=== PATIENT | female | born 1940 | race Caucasian/White ===

== ENCOUNTER → 2020-12-18 09:37 | Outpatient (BNVA) | payer MEDICARE, MEDICAID, SELFPAY | PROVIDERS: PCP Internal Medicine; Visit Provider Internal Medicine | DX: I42.8 Other cardiomyopathies (principal); I48.0 Paroxysmal atrial fibrillation; I10 Essential (primary) hypertension; Q21.1 Atrial septal defect | CPT/HCPCS: Q3014 ==

== ENCOUNTER 2021-10-31 21:25 | Inpatient (IN) | payer MEDICARE, MEDICAID, SELFPAY ==
--- NOTE | ~2021-10-31 | XR_ITS ---
EXAMINATION: XR CHEST CLINICAL INFORMATION: Shortness of breath COMPARISON: 07/02/2019 TECHNIQUE: Frontal view of the chest was obtained. FINDINGS: Cardiac leads overlie the chest. The lungs are well expanded. Hazy opacity at the left base. No pleural effusion or pneumothorax. The cardiomediastinal silhouette is unchanged, with a calcified aorta. XR/XR chest 1V IMPRESSION: Hazy left lung basilar opacity could be infectious or inflammatory. Atelectasis possible.
--- NOTE | ~2021-10-31 | NM_ITS ---
EXAMINATION: PULMONARY PERFUSION STUDY CLINICAL INFORMATION: Shortness of breath, tachycardia, elevated d-dimer. COMPARISON: No previous lung scan is available for comparison. A radiograph the chest dated 10/31/2021 is available for comparison. TECHNIQUE: Following the intravenous injection of 3.6 mCi Tc-99m MAA, an 8-view perfusion study was performed using a gamma scintillation camera. FINDINGS: No segmental perfusion defects are present. There is mildly heterogeneous distribution of activity bilaterally. There are no focal anatomic appearing perfusion defects present. NM/NM pul perfusion IMPRESSION: Very low probability of pulmonary embolism.
--- NOTE | 2021-10-31 22:04 | ECG_ITS ---
Test Reason : WEAKNESS Blood Pressure : / mmHG Vent. Rate : 127 BPM Atrial Rate : 127 BPM P-R Int : 166 ms QRS Dur : 076 ms QT Int : 320 ms P-R-T Axes : 094 105 014 degrees QTc Int : 465 ms Suspect limb lead reversal, interpretation assumes no reversal Sinus tachycardia Rightward axis Septal infarct (cited on or before 02-JUL-2019) Abnormal ECG When compared with ECG of 02-JUL-2019 14:06, Vent. rate has increased BY 47 BPM Referred By: Larry Guerra Electronically Signed By:ANDERSON DE LEON
--- NOTE | 2021-10-31 22:45 | ED_ITS ---
HPI - SOB/Dyspnea General Chief Complaint: Weakness Stated Complaint: diff breathing Time Seen by Provider: 10/31/21 22:04 History of Present Illness HPI Narrative: patient 81 years old with history of nonischemic cardiomyopathy paroxysmal AFib , on Xarelto, ejection fraction 50-55% , patent Nguyễn ovale avale brought by EMS for increased shortness of breath and not feeling well for last 4 - 5 days patient has not received COVID vaccine, per EMS patient was very short of breath in unkept condition confused and weak responded to nebulizing treatment and oxygen at this time patient feeling much better denies any chest pain no fever just feeling weak for last few days Related Data Home Medications Medication Instructions Recorded Confirmed blood sugar diagnostic (OneTouch #10 ea 04/17/21 Verio test strips) Previous Rx's Medication Instructions Recorded atorvastatin 20 mg tablet 20 mg PO DAILY #90 tab 09/02/20 gabapentin 600 mg tablet 1,200 mg PO BID #360 tab 10/23/20 ketoconazole 2 % topical cream 1 appl TOPICAL BID #60 g 12/26/20 Sanitary WIPES #100 ea 03/18/21 carvedilol 12.5 mg tablet 12.5 mg PO BID 90 Days #180 tab 05/12/21 lisinopril 5 mg tablet 5 mg PO DAILY #90 tab 05/12/21 sitagliptin 100 mg tablet (Januvia) 100 mg PO DAILY 90 Days #90 tab 05/15/21 budesonide-formoterol HFA 160 2 puff INHALATION BID #3 ea 07/27/21 mcg-4.5 mcg/actuation aerosol inhaler (Symbicort) ipratropium 20 mcg-albuterol 100 1 puff PO QID #12 ml 07/28/21 mcg/actuation mist for inhalation (Combivent Respimat) metformin 500 mg tablet 500 mg PO BID 90 Days #180 tab 07/28/21 rivaroxaban 20 mg tablet (Xarelto) 20 mg PO DAILY 90 Days #90 tab 08/21/21 Allergies Allergy/AdvReac Type Severity Reaction Status Date / Time Iodinated Contrast Media Allergy Severe ANAPHYLAXIS Verified 12/18/20 09:40 [IV Dye, Iodine Containing] shellfish derived Allergy Severe TREMORS, Verified 12/18/20 09:40 [SHELLFISH DERIVED] HALLUCINATIONS fluticasone [Advair Diskus] Allergy Unknown unk Verified 12/18/20 09:40 salmeterol [Advair Diskus] Allergy Unknown unk Verified 12/18/20 09:40 loratadine [From Claritin] AdvReac Mild NAUSEA & Verified 12/18/20 09:40 VOMITING Sea food Allergy Unknown itching Uncoded 12/18/20 09:40 Review of Systems Review of Systems: Yes all other systems are reviewed and are negative [facility] Past Medical History Medical History Cardiomyopathy COPD (chronic obstructive pulmonary disease) Coronary artery disease Diabetic nephropathy Diabetic neuropathy Essential hypertension Hypercholesterolemia Nonischemic cardiomyopathy Paroxysmal atrial fibrillation PFO (patent foramen ovale) Sarcoidosis Spinal stenosis of lumbar region Ventricular tachycardia Vitamin D deficiency Surgical History History of bladder surgery History of cardiac catheterization (~04/2016) History of cardioversion (~12/2016) History of hysterectomy Family History Family History Father CVD (cardiovascular disease) Mother Diabetes Social History Social History Advance Directives: No Advance Directives Information Provided: Yes Physical Exam Vital Signs: Vital Signs: Last Vital Signs Temp 98.2 F 11/01/21 02:34 Pulse 122 H 11/01/21 02:34 Resp 16 11/01/21 02:34 BP 146/83 H 11/01/21 02:34 Pulse Ox 98 11/01/21 02:34 Oxygen Flow Rate 3 10/31/21 22:53 BMI result Body Mass Index 21.0 Appearance: Alert. Oriented X3. No acute distress. Eyes: no pallor or icterus ENT: Pharynx normal. Oral Mucosa moist Neck: Normal inspection. Neck supple. CVS: sinus tachycardia no murmur or gallop. Pulses normal. Respiratory: No respiratory distress. Equal air entry bilateral, no wheezi ng/rales/rhonchi Abdomen: Soft and nontender. Bowel sounds are present, no mass palpable, no CVA tenderness Skin: Skin warm and dry. Normal skin color. Normal skin turgor. Extremities: No lower extremity edema. No calf tenderness Neuro: Oriented X 3. no focal deficit MDM - SOB/Dyspnea MDM Narrative Medical decision making narrative: patient with increase weakness with history of AFib on Xarelto workup showed UTI will admit patient for IV hydration and antibiotics, chest x-ray showed left lung basilar opacity possible infiltrates but patient denied any cough COVID-19 is negative Medical Records Attestation: I reviewed the patient's medical records. Lab Data Attestation: I reviewed the patient's lab results. Result diagrams: 11/01/21 00:00 10/31/21 23:59 Labs: Lab Results 10/31/21 10/31/21 10/31/21 Range/Units 23:59 23:59 23:59 WBC (4.8-10.8) X10*3/uL RBC (4.20-5.50) X10*6/uL Hgb (12.0-16.0) g/dl Hct (37.0-47.0) % MCV (80.0-98.0) fL MCH (27.0-33.0) pg MCHC (31.0-35.0) g/dl RDW (11.0-16.0) % Plt Count (160-400) X10*3/uL MPV (9.4-12.3) fL Immature Gran % (Auto) (0.0-0.4) % Neut % (Auto) (45-73) % Lymph % (Auto) (20-40) % [place] % (Auto) (2-11) % Eos % (Auto) (0-4) % Baso % (Auto) (0-2) % Lymph # (Auto) (1.2-4.9) X10*3/uL [place] # (Auto) (0.1-1.2) X10*3/uL Eos # (Auto) (0.0-0.4) X10*3/uL Baso # (Auto) (0.0-0.2) X10*3/uL Abs Immat Gran (auto) (0.00-0.03) X10*3/uL Absolute Neuts (auto) (2.0-8.3) x10*3/uL Absolute Nucleated RBC (0.0-0.012) X10*3/uL Nucleated RBC % (auto) (0.0-0.2) /100WBC PT (9.9-13.0) SEC INR (0.9-1.1) Sodium 131 L (135-145) mmol/L Potassium 5.3 H (3.3-5.1) mmol/L Chloride 95 L (96-108) mmol/L Carbon Dioxide 20 L (22-29) mmol/L Anion Gap 21 H (12-20) BUN 28 H (9-16) mg/dL Creatinine 0.92 (0.5-1.4) mg/dL Estim Creat Clear Calc 39.6 Estimated GFR 59 Random Glucose 114 (60-115) mg/dL Lactic Acid (0.5-2.0) mmol/L Calcium 9.1 (8.4-10.2) mg/dL Total Bilirubin 0.8 (0.0-1.0) mg/dL AST 17 (5-31) U/L ALT 14 (0-31) U/L Alkaline Phosphatase 75 (39-117) U/L Troponin I High Sens 22.4 H (<3.5-17.0) ng/L B-Natriuretic Peptide 21 (<100) pg/mL Total Protein 6.0 L (6.5-8.0) g/dL Albumin 3.6 (3.5-5.0) g/dL COVID-19 (SOTO) (Negative) COVID-19 Clin Com 11/01/21 11/01/21 11/01/21 Range/Units 00:00 00:00 00:39 WBC 13.9 H (4.8-10.8) X10*3/uL RBC 4.59 (4.20-5.50) X10*6/uL Hgb 14.6 (12.0-16.0) g/dl Hct 43.3 (37.0-47.0) % MCV 94.3 (80.0-98.0) fL MCH 31.8 (27.0-33.0) pg MCHC 33.7 (31.0-35.0) g/dl RDW 13.1 (11.0-16.0) % Plt Count 280 (160-400) X10*3/uL MPV 9.7 (9.4-12.3) fL Immature Gran % (Auto) 0.4 (0.0-0.4) % Neut % (Auto) 83.7 H (45-73) % Lymph % (Auto) 8.5 L (20-40) % [place] % (Auto) 6.5 (2-11) % Eos % (Auto) 0.6 (0-4) % Baso % (Auto) 0.3 (0-2) % Lymph # (Auto) 1.2 (1.2-4.9) X10*3/uL [place] # (Auto) 0.9 (0.1-1.2) X10*3/uL Eos # (Auto) 0.1 (0.0-0.4) X10*3/uL Baso # (Auto) 0.0 (0.0-0.2) X10*3/uL Abs Immat Gran (auto) 0.05 H (0.00-0.03) X10*3/uL Absolute Neuts (auto) 11.7 H (2.0-8.3) x10*3/uL Absolute Nucleated RBC 0.000 (0.0-0.012) X10*3/uL Nucleated RBC % (auto) 0.0 (0.0-0.2) /100WBC PT 12.3 (9.9-13.0) SEC INR 1.1 (0.9-1.1) Sodium (135-145) mmol/L Potassium (3.3-5.1) mmol/L Chloride (96-108) mmol/L Carbon Dioxide (22-29) mmol/L Anion Gap (12-20) BUN (9-16) mg/dL Creatinine (0.5-1.4) mg/dL Estim Creat Clear Calc Estimated GFR Random Glucose (60-115) mg/dL Lactic Acid (0.5-2.0) mmol/L Calcium (8.4-10.2) mg/dL Total Bilirubin (0.0-1.0) mg/dL AST (5-31) U/L ALT (0-31) U/L Alkaline Phosphatase (39-117) U/L Troponin I High Sens (<3.5-17.0) ng/L B-Natriuretic Peptide (<100) pg/mL Total Protein (6.5-8.0) g/dL Albumin (3.5-5.0) g/dL COVID-19 (SOTO) Negative (Negative) COVID-19 Clin Com See Note 11/01/21 Range/Units 02:26 WBC (4.8-10.8) X10*3/uL RBC (4.20-5.50) X10*6/uL Hgb (12.0-16.0) g/dl Hct (37.0-47.0) % MCV (80.0-98.0) fL MCH (27.0-33.0) pg MCHC (31.0-35.0) g/dl RDW (11.0-16.0) % Plt Count (160-400) X10*3/uL MPV (9.4-12.3) fL Immature Gran % (Auto) (0.0-0.4) % Neut % (Auto) (45-73) % Lymph % (Auto) (20-40) % [place] % (Auto) (2-11) % Eos % (Auto) (0-4) % Baso % (Auto) (0-2) % Lymph # (Auto) (1.2-4.9) X10*3/uL [place] # (Auto) (0.1-1.2) X10*3/uL Eos # (Auto) (0.0-0.4) X10*3/uL Baso # (Auto) (0.0-0.2) X10*3/uL Abs Immat Gran (auto) (0.00-0.03) X10*3/uL Absolute Neuts (auto) (2.0-8.3) x10*3/uL Absolute Nucleated RBC (0.0-0.012) X10*3/uL Nucleated RBC % (auto) (0.0-0.2) /100WBC PT (9.9-13.0) SEC INR (0.9-1.1) Sodium (135-145) mmol/L Potassium (3.3-5.1) mmol/L Chloride (96-108) mmol/L Carbon Dioxide (22-29) mmol/L Anion Gap (12-20) BUN (9-16) mg/dL Creatinine (0.5-1.4) mg/dL Estim Creat Clear Calc Estimated GFR Random Glucose (60-115) mg/dL Lactic Acid 1.2 (0.5-2.0) mmol/L Calcium (8.4-10.2) mg/dL Total Bilirubin (0.0-1.0) mg/dL AST (5-31) U/L ALT (0-31) U/L Alkaline Phosphatase (39-117) U/L Troponin I High Sens (<3.5-17.0) ng/L B-Natriuretic Peptide (<100) pg/mL Total Protein (6.5-8.0) g/dL Albumin (3.5-5.0) g/dL COVID-19 (SOTO) (Negative) COVID-19 Clin Com ECG Data Attestation: I personally reviewed and interpreted this ECG as follows: Interpretation: Sinus tachycardia with heart rate 127 beats per minute right axis deviation no acute STT wave changes no acute ischemia Discharge Plan Discharge Clinical Impression: Weakness UTI (urinary tract infection) Qualifiers: Urinary tract infection type: acute cystitis Hematuria presence: without hematuria Qualified Code(s): N30.00 - Acute cystitis without hematuria Atrial fibrillation Qualifiers: Atrial fibrillation type: longstanding persistent Qualified Code(s): I48.11 - Longstanding persistent atrial fibrillation Patient Disposition: Admitted As Inpatient
[2021-10-31 22:53] VITALS: BP 115/74; PULSE 111; RESP 16; TEMP 36.6; O2SAT 95; BMI 21.0
[2021-10-31 23:00] VITALS: PULSE 110; RESP 16; O2SAT 95
[2021-11-01] VITALS (12 sets, daily range): BP systolic 89–146; BP diastolic 51–86; PULSE 102–122; RESP 15–20; TEMP 36–36.8; O2SAT 2–98
[2021-11-01 00:05] LABS: MANUAL DIFF FLAG NO
[2021-11-01 00:06] LABS: Basophils Percent Auto 0.3 % (0-2); Eosinophils Absolute Auto 0.1 X10*3/uL (0.0-0.4); Eosinophils Percent Auto 0.6 % (0-4); Hematocrit 43.3 % (37.0-47.0); Hemoglobin 14.6 g/dl (12.0-16.0); Imm Gran Abs Auto 0.05 X10*3/uL (0.00-0.03); Imm Gran Pct Auto 0.4 % (0.0-0.4); Lymphocytes Absolute Auto 1.2 X10*3/uL (1.2-4.9); Lymphocytes Percent Auto 8.5 % (20-40); Mean Corpuscular HGB Conc 33.7 g/dl (31.0-35.0); Mean Corpuscular Hemoglobin 31.8 pg (27.0-33.0); Mean Corpuscular Volume 94.3 fL (80.0-98.0); Mean Platelet Volume 9.7 fL (9.4-12.3); Monocytes Absolute Auto 0.9 X10*3/uL (0.1-1.2); Monocytes Percent Auto 6.5 % (2-11); Neutrophils Absolute Auto 11.7 x10*3/uL (2.0-8.3); Neutrophils Percent Auto 83.7 % (45-73); Platelet Count 280 X10*3/uL (160-400); Red Blood Count 4.59 X10*6/uL (4.20-5.50); Red Cell Distribution Width 13.1 % (11.0-16.0); White Blood Count 13.9 X10*3/uL (4.8-10.8)
[2021-11-01 00:11] LABS: INTERNATIONAL NORM RATIO 1.1 (0.9-1.1); Prothrombin Time 12.3 SEC (9.9-13.0)
[2021-11-01 00:25] LABS: Alanine Aminotransferase 14 U/L (0-31); Albumin Level 3.6 g/dL (3.5-5.0); Alkaline Phosphatase 75 U/L (39-117); Anion Gap 21 (12-20); Aspartate Amino Transferase 17 U/L (5-31); Bilirubin Total 0.8 mg/dL (0.0-1.0); Blood Urea Nitrogen 28 mg/dL (9-16); Calcium 9.1 mg/dL (8.4-10.2); Carbon Dioxide 20 mmol/L (22-29); Chloride 95 mmol/L (96-108); Creatinine Clr Calc Pharmacy 39.6; Estimated Glomerular Filt Rate 59; Glucose Random 114 mg/dL (60-115); Potassium 5.3 mmol/L (3.3-5.1); Sodium 131 mmol/L (135-145)
[2021-11-01 00:27] LABS: B Type Natriuretic Peptide 21 pg/mL (<100); Troponin-I High Sensitivity 22.4 ng/L (<3.5-17.0)
[2021-11-01] MEDS: 0.9 % Sodium Chloride 1,000 ML 999 ML IVCONT (00:38)
[2021-11-01 01:02] LABS: COVID-19 Test Negative (Negative); IDNOW Serial# 9DD0AD1C
[2021-11-01] MEDS: cefTRIAXone sodium 1 GM in 0.9 % Sodium Chloride 50 ML IV ×2 (01:47→23:32)
[2021-11-01] MEDS: Azithromycin 500 MG in 0.9 % Sodium Chloride 250 ML 125 MG IV ×2 (02:33→20:58)
[2021-11-01 02:50] LABS: Lactic Acid 1.2 mmol/L (0.5-2.0)
--- NOTE | 2021-11-01 03:01 | PM.IMHP ---
History of Present Illness Date of Service: 11/01/21 Chief Complaint: Generalized weakness 81-year-old female with a past medical history of hypertension, hyperlipidemia, diabetes, CAD, CHF with EF of 55%, paroxysmal AFib on Xarelto, COPD, PFO, sarcoidosis, history of ventricular tachycardia, vitamin-D deficiency presented to the hospital today with a chief complaint of generalized weakness. Patient reports that over the past 5 days she has been having generalized weakness which is been worsened over the past 3 days; also has reduced appetite and decreased oral intake for the past 4 5 days. Denies any falls or trauma. Patient reports that at baseline she is mostly in the college and does not move much around the house. Lives with the family and family helps with her daily activities. Mentions that she wears diapers Denies any chest pain or palpitations. Denies any cough or sputum production. Review of all other systems is negative except mentioned above ER course: Per ER team EMS noted the patient was saturating 89%; given nebulizer treatment; placed on oxygen; unable to the ER patient was breathing comfortably, speaking in full sentences; noted to be mildly tachycardic; on labs noted to have mild hyperkalemia 5.3; EKG showed no acute findings; troponin 22 repeat troponin pending; urinalysis was abnormal consistent with UTI-likely contributing to her generalized weakness. Admitted for further management. Chest x-ray also showed hazy opacity. Patient received ceftriaxone and azithromycin the ER. [facility] Medical History Cardiomyopathy COPD (chronic obstructive pulmonary disease) Coronary artery disease Diabetic nephropathy Diabetic neuropathy Essential hypertension Hypercholesterolemia Nonischemic cardiomyopathy Paroxysmal atrial fibrillation PFO (patent foramen ovale) Sarcoidosis Spinal stenosis of lumbar region Ventricular tachycardia Vitamin D deficiency Family History Father CVD (cardiovascular disease) Mother Diabetes Pertinent family history: As mentioned above Surgical History History of bladder surgery History of cardiac catheterization (~04/2016) History of cardioversion (~12/2016) History of hysterectomy Social History Advance Directives: No Advance Directives Information Provided: Yes Meds Allergies Allergy/AdvReac Type Severity Reaction Status Date / Time Iodinated Contrast Media Allergy Severe ANAPHYLAXIS Verified 12/18/20 09:40 [IV Dye, Iodine Containing] shellfish derived Allergy Severe TREMORS, Verified 12/18/20 09:40 [SHELLFISH DERIVED] HALLUCINATIONS fluticasone [Advair Diskus] Allergy Unknown unk Verified 12/18/20 09:40 salmeterol [Advair Diskus] Allergy Unknown unk Verified 12/18/20 09:40 loratadine [From Claritin] AdvReac Mild NAUSEA & Verified 12/18/20 09:40 VOMITING Sea food Allergy Unknown itching Uncoded 12/18/20 09:40 Active Medications: Current Medications Acetaminophen (Acetaminophen 325 Mg Tablet) 650 mg PO Q6H PRN PRN Reason: Pain, Mild (Pain Scale 1-3) Albuterol/Ipratropium (Albuterol/Iprat 2.5/0.5mg 3 Ml Ampul.Neb) 3 ml INHALE RQ4H PRN PRN Reason: Shortness of Breath/Wheezing Dextrose (Dextrose 50 % 25 Gm/50 Ml Vial) 25 gm IVPUSH Q15M PRN; Protocol PRN Reason: per Hypoglycemia Standing Ord. Glucose (Glucose Gel 15 Gm Gel..Gram.) 15 gm PO Q15M PRN; Protocol PRN Reason: per Hypoglycemia Standing Ord. Azithromycin 500 mg/ Sodium (Chloride) 250 mls @ 125 mls/hr IV ONCE ONE Stop: 11/01/21 03:30 Last Admin: 11/01/21 02:33 Dose: 125 mls/hr Documented by: Ceftriaxone Sodium 1 gm/ (Sodium Chloride) 50 mls @ 100 mls/hr IV Q24H COUNTS INCLUDE 234 BEDS AT THE [facility] Azithromycin 500 mg/ Sodium (Chloride) 250 mls @ 125 mls/hr IV Q24H COUNTS INCLUDE 234 BEDS AT THE [facility] Insulin Human Lispro (Insulin Lispro 100 Unit/Ml 3 Ml Vial) 0 unit SUBCUT QIDACHS COUNTS INCLUDE 234 BEDS AT THE [facility]; Protocol Melatonin (Melatonin 3 Mg Tablet) 6 mg PO BEDTIME PRN PRN Reason: Insomnia Senna (Sennosides 8.6 Mg Tablet) 17.2 mg PO BEDTIME PRN PRN Reason: Constipation Sodium Chloride (0.9 % Sodium Chloride Flush 3 Ml Syringe) 3 ml IVFLUSH QSHIFT COUNTS INCLUDE 234 BEDS AT THE [facility] Home Medications Medication Instructions Recorded Confirmed Last Taken Type blood sugar diagnostic (OneTouch #10 ea 04/17/21 Unknown History Verio test strips) Physical Exam Vital Signs and Narrative: Vital Signs: Last Vital Signs Temp 98.2 F 11/01/21 02:34 Pulse 122 H 11/01/21 02:34 Resp 16 11/01/21 02:34 BP 146/83 H 11/01/21 02:34 Pulse Ox 98 11/01/21 02:34 Oxygen Flow Rate 3 10/31/21 22:53 BMI result Body Mass Index 21.0 Gen: Appears be in no acute distress. Noted to be tachycardic on telemetry HEENT: NCAT, Moist mucosa. Pulmonary: Coarse breath sounds CVS: Normal S1-S2 Abdomen: BS+, Soft, Nontender Extremities: Warm well perfused Neuro: Alert and awake. Has good strength in bilateral upper extremities; bilateral lower extremities-patient unable to lift off the bed-> able to flex and extend the ankles without any difficulty, equally bilaterally. Reports it is baseline. Sensations intact Results Labs CBC and Chem 7: 11/01/21 00:00 10/31/21 23:59 Labs: Laboratory Results - last 24 hr 10/31/21 10/31/21 10/31/21 23:59 23:59 23:59 MCV MCH MCHC RDW Plt Count MPV Immature Gran % (Auto) Neut % (Auto) Lymph % (Auto) [place] % (Auto) Eos % (Auto) Baso % (Auto) Lymph # (Auto) [place] # (Auto) Eos # (Auto) Baso # (Auto) Abs Immat Gran (auto) Absolute Neuts (auto) Absolute Nucleated RBC Nucleated RBC % (auto) PT INR Anion Gap 21 H Estim Creat Clear Calc 39.6 Estimated GFR 59 Random Glucose 114 Lactic Acid Calcium 9.1 Total Bilirubin 0.8 AST 17 ALT 14 Alkaline Phosphatase 75 Troponin I High Sens 22.4 H B-Natriuretic Peptide 21 Total Protein 6.0 L Albumin 3.6 COVID-19 (SOTO) COVID-19 Clin Com 11/01/21 11/01/21 11/01/21 00:00 00:00 00:39 MCV 94.3 MCH 31.8 MCHC 33.7 RDW 13.1 Plt Count 280 MPV 9.7 Immature Gran % (Auto) 0.4 Neut % (Auto) 83.7 H Lymph % (Auto) 8.5 L [place] % (Auto) 6.5 Eos % (Auto) 0.6 Baso % (Auto) 0.3 Lymph # (Auto) 1.2 [place] # (Auto) 0.9 Eos # (Auto) 0.1 Baso # (Auto) 0.0 Abs Immat Gran (auto) 0.05 H Absolute Neuts (auto) 11.7 H Absolute Nucleated RBC 0.000 Nucleated RBC % (auto) 0.0 PT 12.3 INR 1.1 Anion Gap Estim Creat Clear Calc Estimated GFR Random Glucose Lactic Acid Calcium Total Bilirubin AST ALT Alkaline Phosphatase Troponin I High Sens B-Natriuretic Peptide Total Protein Albumin COVID-19 (SOTO) Negative COVID-19 Clin Com See Note 11/01/21 02:26 MCV MCH MCHC RDW Plt Count MPV Immature Gran % (Auto) Neut % (Auto) Lymph % (Auto) [place] % (Auto) Eos % (Auto) Baso % (Auto) Lymph # (Auto) [place] # (Auto) Eos # (Auto) Baso # (Auto) Abs Immat Gran (auto) Absolute Neuts (auto) Absolute Nucleated RBC Nucleated RBC % (auto) PT INR Anion Gap Estim Creat Clear Calc Estimated GFR Random Glucose Lactic Acid 1.2 Calcium Total Bilirubin AST ALT Alkaline Phosphatase Troponin I High Sens B-Natriuretic Peptide Total Protein Albumin COVID-19 (SOTO) COVID-19 Clin Com Imaging Radiologist's Impressions: Impressions Chest X-Ray 10/31/21 22:48 IMPRESSION: Hazy left lung basilar opacity could be infectious or inflammatory. Atelectasis possible. Assessment and Plan 81-year-old female with a past medical history of hypertension, hyperlipidemia, diabetes, CAD, CHF with EF of 55%, paroxysmal AFib on Xarelto, COPD, PFO, sarcoidosis, history of ventricular tachycardia, vitamin-D deficiency presented to the hospital today with a chief complaint of generalized weakness. Generalized weakness: Likely in the setting of UTI/pneumonia. Continued on ceftriaxone azithromycin. Supportive care. Follow up cultures. COPD: Patient status post nebulizer treatment. Currently lung sounds are clear. Continue DuoNebs p.r.n.. Supplemental oxygen p.r.n.. Breathing comfortably. Paroxysmal AFib: Patient on Xarelto; Patient currently in sinus tach-likely in setting of dehydration/UTI. Unclear if the patient is compliant with Xarelto-will also obtain a D-dimer and if positive will consider V/Q scan History of CHF: Patient is not in fluid overload. History of hypertension: Continue home carvedilol. Hold lisinopril for now. History of diabetes: Will hold home medications. Insulin sliding scale for now. Code status: Full code Quality Stroke Does the patient have a stroke diagnosis?: No VTE Prior VTE?: No VTE Risk Level:: Medical - moderate - high VTE Device Contraindication: Treatment Not Indicated VTE Drug Contraindication: N/A - Med Ordered
[2021-11-01 03:44] LABS: MANUAL DIFF FLAG NO
[2021-11-01 03:47] LABS: Basophils Percent Auto 0.2 % (0-2); Eosinophils Absolute Auto 0.1 X10*3/uL (0.0-0.4); Hematocrit 38.9 % (37.0-47.0); Imm Gran Abs Auto 0.03 X10*3/uL (0.00-0.03); Imm Gran Pct Auto 0.3 % (0.0-0.4); Lymphocytes Absolute Auto 1.1 X10*3/uL (1.2-4.9); Mean Corpuscular HGB Conc 33.4 g/dl (31.0-35.0); Mean Corpuscular Hemoglobin 31.9 pg (27.0-33.0); Mean Corpuscular Volume 95.6 fL (80.0-98.0); Mean Platelet Volume 9.9 fL (9.4-12.3); Monocytes Percent Auto 9.8 % (2-11); Neutrophils Absolute Auto 7.6 x10*3/uL (2.0-8.3); Neutrophils Percent Auto 77.7 % (45-73); Platelet Count 266 X10*3/uL (160-400); Red Blood Count 4.07 X10*6/uL (4.20-5.50); White Blood Count 9.7 X10*3/uL (4.8-10.8)
[2021-11-01 03:54] LABS: D Dimer High Sensitivity 1146 NG/ML
[2021-11-01 04:04] LABS: Anion Gap 16 (12-20); Blood Urea Nitrogen 26 mg/dL (9-16); Calcium 8.6 mg/dL (8.4-10.2); Carbon Dioxide 24 mmol/L (22-29); Chloride 99 mmol/L (96-108); Estimated Glomerular Filt Rate > 60; Glucose Random 84 mg/dL (60-115); Potassium 4.8 mmol/L (3.3-5.1); Sodium 134 mmol/L (135-145)
[2021-11-01 04:09] LABS: Troponin-I High Sensitivity 28.9 ng/L (<3.5-17.0)
[2021-11-01] MEDS: carvediloL 12.5 MG TABLET PO ×2 (06:27→20:57)
[2021-11-01 07:54] LABS: Glucose, Whole Blood 79 mg/dL (60-115)
[2021-11-01] MEDS: Atorvastatin Calcium 20 MG TABLET PO (07:57)
[2021-11-01] MEDS: lisinopriL 5 MG TABLET PO (07:57)
[2021-11-01] MEDS: Gabapentin 600 MG TABLET 1200 MG PO ×2 (07:57→20:58)
--- NOTE | 2021-11-01 11:55 | PC.NURSE ---
Dr Cleary informed via tiger text about pt bp at 11:27
--- NOTE | 2021-11-01 12:18 | MHC.CM.PN ---
HCP FOUND IN CHART. SANDERS AND
--- NOTE | 2021-11-01 12:20 | MHC.CM.PN ---
HCP FOUND IN CHART TOMMY ([phone] IS PRIMARY AND SECOND IS LUCINA ([phone]) TOMMY ASKS THAT STAFF DISCONTINUE SPEAKING WITH CRISTINO UNLESS PATIENT ASKS FOR THIS. HE ALSO ASKS FOR A CALL WITH UPDATES ON PATIENT'S PROGRESS. HE IS AWARE THAT HE IS UNABLE TO VISIT HIS MOTHER AT THIS TIME. COPY OF HCP PLACED IN ED FOLDER
[2021-11-01] MEDS: 0.9 % Sodium Chloride 1,000 ML 500 ML IVCONT (12:24)
[2021-11-01 12:49] LABS: Glucose, Whole Blood 118 mg/dL (60-115)
--- NOTE | 2021-11-01 14:16 | P.EN_ITS ---
Event Note Date of Service: 11/01/21 Event Note: Pt seen and examined, meds labs, vitals reviewd, BP got lowe evaristo riteodoro, given some fluid with improvment, otherwise assesment and plan per H and P from this morning and will continue to monitor.
--- NOTE | 2021-11-01 14:45 | PHA.MEDREC ---
Pharmacy Consult ? Medication Reconciliation Rn completed med rec and pharmacy reviewed.
[2021-11-01] MEDS: 0.9 % Sodium Chloride Flush 3 ML SYRINGE IVFLUSH (16:05)
[2021-11-01 16:11] LABS: Glucose, Whole Blood 95 mg/dL (60-115)
--- NOTE | 2021-11-01 16:12 | PC.NURSE ---
PT HAS BEEN OFFERED FOOD STATES SHE DOESN'T FEEL LIKE EATING, SHE IS DRINKING WATER AND JUICE. PT IS INC OF STOOL AND URINE, PT HAS BEEN CHANGED AND REPOSITIONED Q2-3 HOURS, PT HAS RED AREA ON BUTTOCK AREA, APPLYING PROTECTIVE CREAMS. NEEDS BEING MET, REPORT GIVEN TO RN ON S3
[2021-11-01 16:51] LABS: Glucose, Whole Blood 92 mg/dL (60-115)
[2021-11-01 20:36] LABS: Glucose, Whole Blood 114 mg/dL (60-115)
[2021-11-02] VITALS (10 sets, daily range): BP systolic 90–119; BP diastolic 62–66; PULSE 89–112; RESP 16–94; TEMP 36.2–36.9; O2SAT 91–98; BMI 21.0
[2021-11-02] MEDS: Atorvastatin Calcium 20 MG TABLET PO (07:43)
[2021-11-02] MEDS: Gabapentin 600 MG TABLET 1200 MG PO ×2 (07:43→21:06)
[2021-11-02] MEDS: carvediloL 12.5 MG TABLET PO ×2 (07:44→21:06)
[2021-11-02] MEDS: 0.9 % Sodium Chloride Flush 3 ML SYRINGE IVFLUSH ×2 (07:46→17:31)
[2021-11-02 08:03] LABS: Glucose, Whole Blood 69 mg/dL (60-115)
[2021-11-02 08:03] LABS: Glucose, Whole Blood 65 mg/dL (60-115)
[2021-11-02 08:27] LABS: Glucose, Whole Blood 113 mg/dL (60-115)
[2021-11-02] MEDS: Fluticasone/Vilanterol 200/25 BLST.W.DEV 1 PUFF INHALE (08:47)
--- NOTE | 2021-11-02 09:43 | MHC.CM.PN ---
IMM 11/02/21, EMR REVIEWED, PT ADMITTED W/UTI AND PNA, CM MET W/PT WHO IS VERY GROGGY AND KEEPS CLOSIG EYES DURING INTERVIEW, PT REPORTS SHE LIVES ALONE, IS INDEPENDENT W/CARE, USES A W/C AT BASELINE AND CAN STAND AND TRANSFER SELF TO TOILET AND BED, PT ALSO HAS DIABETIC SUPPLIES AND REPORTS SHE TAKES METFORMIN AT HOME, PT DOES NOT RECALL PCP HOWEVER PER RECORDS PT HAS [place] PO, PT DENIES HAVING HAD COVID VACCINE AND DENIES HAVING PCP. CM WILL RE-ADDRESS HCP W/PT ONCE SHE IS MORE AWAKE AND ALERT. D/C PLAN: HOME VS HOME W/NEW VNA, FAMILY FOR TRANSPORT.
[2021-11-02 11:12] LABS: Glucose, Whole Blood 136 mg/dL (60-115)
--- NOTE | 2021-11-02 11:52 | PC.NURSE ---
Skin/wound assessment completed today. Patient has incontinent skin damage to buttocks, periarea and inner thighs. Triad applied to all reddened rash. Also has a Stage 2 pressure ulcer to sacrum, Triad applied covered with foam. Scattered bruising on arms. No other skin issues noted at this time.
--- NOTE | 2021-11-02 11:59 | MHC.CLN ---
NUTRITION CONSULT FOR STAGE II PRESSURE INJURY TO BILATERAL BUTTOCKS. DIET=DIABETIC 2000 KCAL. ADDING GLUCERNA BID (474 KCAL, 20 G PROTEIN) TO PROMOTE WOUND HEALING. SEE CLINICAL NUTRITION ASSESSMENT.
--- NOTE | 2021-11-02 12:01 | P.PNIM_ITS ---
Subjective Subjective Date of Service: 11/02/21 Interval History: f/u for UTI, gen weakness, better Review of Systems no fever some confusion Physical Exam Vital Signs: Vital Signs: Last Vital Signs Temp 97.1 F 11/02/21 11:11 Pulse 112 H 11/02/21 11:34 Resp 16 11/02/21 11:11 BP 97/64 11/02/21 11:34 Pulse Ox 91 L 11/02/21 11:34 Oxygen Flow Rate 3 10/31/21 22:53 BMI result Body Mass Index 21.0 Const: Other: General: AO X 2, no acute distress Resp: CTA bilateral CVS: S1,S2,RRR GI: +BS, NT, no distention Skin: No rash Neuro: motor grossly intact Psych: appropriate affect Objective Data Active Medications Acetaminophen (Acetaminophen 325 Mg Tablet) 650 mg PO Q6H PRN PRN Reason: Pain, Mild (Pain Scale 1-3) Albuterol/Ipratropium (Albuterol/Iprat 2.5/0.5mg 3 Ml Ampul.Neb) 3 ml INHALE RQ4H PRN PRN Reason: Shortness of Breath/Wheezing Atorvastatin Calcium (Atorvastatin Calcium 20 Mg Tablet) 20 mg PO DAILY [facility] Last Admin: 11/02/21 07:43 Dose: 20 mg Documented by: ALEXIS Carvedilol (Carvedilol 12.5 Mg Tablet) 12.5 mg PO BID [facility]; Protocol Last Admin: 11/02/21 07:44 Dose: 12.5 mg Documented by: ALEXIS Dextrose (Dextrose 50 % 25 Gm/50 Ml Vial) 25 gm IVPUSH Q15M PRN; Protocol PRN Reason: per Hypoglycemia Standing Ord. Fluticasone/Vilanterol (Fluticasone/Vilanterol 200/25 Blst.W.Dev) 1 puff INHALE DAILY [facility] Last Admin: 11/02/21 08:47 Dose: 1 puff Documented by: BLAKE Gabapentin (Gabapentin 600 Mg Tablet) 1,200 mg PO BID [facility] Last Admin: 11/02/21 07:43 Dose: 1,200 mg Documented by: ALEXIS Glucose (Glucose Gel 15 Gm Gel..Gram.) 15 gm PO Q15M PRN; Protocol PRN Reason: per Hypoglycemia Standing Ord. Ceftriaxone Sodium 1 gm/ (Sodium Chloride) 50 mls @ 100 mls/hr IV Q24H [facility] Last Infusion: 11/02/21 00:27 Dose: 0 mls/hr Documented by: SWAPNA Azithromycin 500 mg/ Sodium (Chloride) 250 mls @ 125 mls/hr IV Q24H [facility] Last Infusion: 11/01/21 23:17 Dose: 0 mls/hr Documented by: SWAPNA Insulin Human Lispro (Insulin Lispro 100 Unit/Ml 3 Ml Vial) 0 unit SUBCUT QIDACHS [facility]; Protocol Last Admin: 11/02/21 11:34 Dose: Not Given Documented by: ALEXIS Non-Admin Reason: No Insulin Coverage Lisinopril (Lisinopril 5 Mg Tablet) 5 mg PO DAILY [facility]; Protocol Last Admin: 11/02/21 08:06 Dose: Not Given Documented by: ALEXIS Non-Admin Reason: Physician Held Med Melatonin (Melatonin 3 Mg Tablet) 6 mg PO BEDTIME PRN PRN Reason: Insomnia Senna (Sennosides 8.6 Mg Tablet) 17.2 mg PO BEDTIME PRN PRN Reason: Constipation Sodium Chloride (0.9 % Sodium Chloride Flush 3 Ml Syringe) 3 ml IVFLUSH QSHIFT [facility] Last Admin: 11/02/21 07:46 Dose: 3 ml Documented by: ALEXIS Labs CBC & Chem 7: 11/01/21 03:31 11/01/21 03:31 Labs: Laboratory Results - last 24 hr 11/01/21 11/01/21 11/01/21 12:44 16:07 16:47 POC Glucose 118 H 95 92 11/01/21 11/02/21 11/02/21 20:32 07:28 07:58 POC Glucose 114 65 69 11/02/21 11/02/21 08:23 11:09 POC Glucose 113 136 H Microbiology Microbiology Results: Microbiology 11/01/21 02:26 Blood Culture - Preliminary Blood - Venous No growth after 24 hours. 11/01/21 02:26 Blood Culture - Preliminary Blood - Venous No growth after 24 hours. Assessment and Plan (1) UTI (urinary tract infection): Status: Acute (2) Weakness: Status: Acute Assessment and Plan: ? 81-year-old female with a past medical history of hypertension, hyperlipidemia, diabetes, CAD, CHF with EF of 55%, paroxysmal AFib on Xarelto, COPD, PFO, sarcoidosis, history of ventricular tachycardia, vitamin-D deficiency presented to the hospital today with a chief complaint of generalized weakness.? Generalized weakness:? Likely in the setting of UTI/pneumonia.? Continued on ceftriaxone azithromycin.? Supportive care.? Cultures negative thus fr COPD, borderline hypoxia, tachy and high ddimer.. CTA to rule PE Paroxysmal AFib:? Patient on Xarelto; Patient currently in sinus tach-likely in setting of dehydration/UTI. Unclear if the patient is compliant with Xarelto-will also obtain a D-dimer and if positive will consider V/Q scan chronic diastolic CHF--euvolemic right now History of hypertension: Continue home carvedilol.? Hold lisinopril for now. History of diabetes:? Will hold home medications.? Insulin sliding scale for now. Code status: Full code Quality Stroke Does the patient have a stroke diagnosis?: No VTE Prior VTE?: No VTE Risk Level:: Medical - moderate - high VTE Device Contraindication: Treatment Not Indicated VTE Drug Contraindication: N/A - Med Ordered
--- NOTE | 2021-11-02 12:01 | P.CDIC_ITS ---
CDI Concurrent Query Documentation Clarification: PHYSICIAN'S DOCUMENTATION REQUEST Date of Query: 11/02/21 1202 Patient Name: Jaja Gillespie Admit Date: 11/01/21 Dear Doctor, A review of the medical record indicates additional documentation may be needed. Please review below and update the documentation accordingly. Risk Factors/Clinical Indicators/Treatments History of CHF, patient is not in fluid overload. Continue Carvedilol. CHF with EF of 55%. BNP 21 Please provide further specificity regarding the most likely type and acuity of CHF you are evaluating, treating, or monitoring. Examples include: Type: * Systolic * Diastolic * Combined Systolic/Diastolic * Other ? please specify * Unable to determine Acuity: * Acute * Chronic * Acute on chronic * Unable to determine Use of terms such as suspected, likely, concern for, or probable (associated with a specific diagnosis that is being evaluated, monitored, or treated as if it exists) are acceptable and can be coded in the inpatient setting, when documented at the time of discharge. Thank you, Shiela Fowler [facility], CDIS Extension: [phone] Please use your independent medical judgment in providing your response. THIS QUERY IS PART OF THE PERMANENT MEDICAL RECORD Provider Response: Other Other Diagnosis: Chronic diastolic CHF
[2021-11-02 16:53] LABS: Glucose, Whole Blood 129 mg/dL (60-115)
[2021-11-02 20:10] LABS: Glucose, Whole Blood 81 mg/dL (60-115)
[2021-11-02] MEDS: cefTRIAXone sodium 1 GM in 0.9 % Sodium Chloride 50 ML IV (21:04)
[2021-11-03] VITALS (8 sets, daily range): BP systolic 90–137; BP diastolic 56–73; PULSE 80–98; RESP 16–18; TEMP 36.2–36.9; O2SAT 92–99
[2021-11-03] MEDS: Azithromycin 500 MG in 0.9 % Sodium Chloride 250 ML 125 MG IV ×2 (00:07→21:54)
[2021-11-03 07:33] LABS: Glucose, Whole Blood 84 mg/dL (60-115)
[2021-11-03] MEDS: Fluticasone/Vilanterol 200/25 BLST.W.DEV 1 PUFF INHALE (08:06)
[2021-11-03] MEDS: lisinopriL 5 MG TABLET PO (08:31)
[2021-11-03] MEDS: Rivaroxaban 15 MG TABLET PO (08:31)
[2021-11-03] MEDS: Gabapentin 600 MG TABLET 1200 MG PO ×2 (08:31→19:49)
[2021-11-03] MEDS: carvediloL 12.5 MG TABLET PO ×2 (08:31→19:49)
[2021-11-03] MEDS: Atorvastatin Calcium 20 MG TABLET PO (08:31)
[2021-11-03 10:32] LABS: Appearance Urine HAZY; Color Urine YELLOW; Glucose Urine UA NEG (NEG); Leukocyte Esterase Urine 3+ (NEG); Nitrite Urine NEG (NEG); UACC Culture Trigger YES; Urine Blood 2+ (NEG); Urine Ketones NEG (NEG); Urine Protein TRACE MG/DL (NEG-TRACE)
[2021-11-03 10:44] LABS: Mucus Urine 2+ /LPF; Squamous Epithelial Cell Urine 2+ /LPF; WBC Urine TNTC /HPF (0-4)
[2021-11-03 10:45] LABS: Bacteria Urine 1+ /LPF
[2021-11-03 11:16] LABS: Glucose, Whole Blood 204 mg/dL (60-115)
[2021-11-03] MEDS: Insulin Lispro 100 UNIT/ML 3 ML VIAL SUBCUT ×2 (12:11→19:49)
--- NOTE | 2021-11-03 12:23 | P.PNIM_ITS ---
Subjective Subjective Date of Service: 11/04/21 Interval History: aspirational pneumonia Review of Systems Shortness of breath seems to improving ,denies any urinary complaints. Physical Exam Vital Signs: Vital Signs: Last Vital Signs Temp 98.1 F 11/03/21 11:19 Pulse 98 11/03/21 11:19 Resp 17 11/03/21 11:19 BP 105/56 L 11/03/21 11:19 Pulse Ox 93 11/03/21 11:19 Oxygen Flow Rate 3 10/31/21 22:53 BMI result Body Mass Index 21.0 General: AO X 2, no acute distress Resp:? CTA bilateral CVS: S1,S2,RRR GI: +BS, NT, no distention Skin: No rash Neuro:? motor grossly intact Psych: appropriate affect Objective Data Active Medications Acetaminophen (Acetaminophen 325 Mg Tablet) 650 mg PO Q6H PRN PRN Reason: Pain, Mild (Pain Scale 1-3) Albuterol/Ipratropium (Albuterol/Iprat 2.5/0.5mg 3 Ml Ampul.Neb) 3 ml INHALE RQ4H PRN PRN Reason: Shortness of Breath/Wheezing Atorvastatin Calcium (Atorvastatin Calcium 20 Mg Tablet) 20 mg PO DAILY [facility] Last Admin: 11/03/21 08:31 Dose: 20 mg Documented by: GREGORY Carvedilol (Carvedilol 12.5 Mg Tablet) 12.5 mg PO BID [facility]; Protocol Last Admin: 11/03/21 08:31 Dose: 12.5 mg Documented by: GREGORY Dextrose (Dextrose 50 % 25 Gm/50 Ml Vial) 25 gm IVPUSH Q15M PRN; Protocol PRN Reason: per Hypoglycemia Standing Ord. Fluticasone/Vilanterol (Fluticasone/Vilanterol 200/25 Blst.W.Dev) 1 puff INHALE DAILY [facility] Last Admin: 11/03/21 08:06 Dose: 1 puff Documented by: BLAKE Gabapentin (Gabapentin 600 Mg Tablet) 1,200 mg PO BID [facility] Last Admin: 11/03/21 08:31 Dose: 1,200 mg Documented by: GREGORY Glucose (Glucose Gel 15 Gm Gel..Gram.) 15 gm PO Q15M PRN; Protocol PRN Reason: per Hypoglycemia Standing Ord. Ceftriaxone Sodium 1 gm/ (Sodium Chloride) 50 mls @ 100 mls/hr IV Q24H [facility] Last Infusion: 11/02/21 22:52 Dose: 0 mls/hr Documented by: SWAPNA Azithromycin 500 mg/ Sodium (Chloride) 250 mls @ 125 mls/hr IV Q24H [facility] Last Infusion: 11/03/21 02:40 Dose: 0 mls/hr Documented by: SWAPNA Insulin Human Lispro (Insulin Lispro 100 Unit/Ml 3 Ml Vial) 0 unit SUBCUT QIDACHS [facility]; Protocol Last Admin: 11/03/21 12:11 Dose: 4 unit Documented by: GREGORY Lisinopril (Lisinopril 5 Mg Tablet) 5 mg PO DAILY [facility]; Protocol Last Admin: 11/03/21 08:31 Dose: 5 mg Documented by: GREGORY Melatonin (Melatonin 3 Mg Tablet) 6 mg PO BEDTIME PRN PRN Reason: Insomnia Rivaroxaban (Rivaroxaban 15 Mg Tablet) 15 mg PO DAILY [facility] Last Admin: 11/03/21 08:31 Dose: 15 mg Documented by: GREGORY Senna (Sennosides 8.6 Mg Tablet) 17.2 mg PO BEDTIME PRN PRN Reason: Constipation Sodium Chloride (0.9 % Sodium Chloride Flush 3 Ml Syringe) 3 ml IVFLUSH QSHIFT [facility] Last Admin: 11/03/21 08:31 Dose: Not Given Documented by: GREGORY Non-Admin Reason: no access Labs CBC & Chem 7: 11/01/21 03:31 11/03/21 23:36 Labs: Laboratory Results - last 24 hr 11/02/21 11/02/21 11/03/21 16:37 19:42 07:21 POC Glucose 129 H 81 84 Urine Color Urine Appearance Urine pH Ur Specific [place] Urine Protein Urine Glucose (UA) Urine Ketones Urine Blood Urine Nitrite Ur Leukocyte Esterase Urine RBC Urine WBC Ur Squamous Epith Cells Urine Bacteria Urine Mucus 11/03/21 11/03/21 10:15 11:11 POC Glucose 204 H Urine Color YELLOW Urine Appearance HAZY Urine pH 6.0 Ur Specific [place] 1.010 Urine Protein TRACE Urine Glucose (UA) NEG Urine Ketones NEG Urine Blood 2+ H Urine Nitrite NEG Ur Leukocyte Esterase 3+ H Urine RBC 5-9 H Urine WBC TNTC H Ur Squamous Epith Cells 2+ Urine Bacteria 1+ Urine Mucus 2+ Microbiology Microbiology Results: Microbiology 11/01/21 02:26 Blood Culture - Preliminary Blood - Venous No growth after 48 hours. 11/01/21 02:26 Blood Culture - Preliminary Blood - Venous No growth after 48 hours. Assessment and Plan (1) Weakness: Status: Acute (2) UTI (urinary tract infection): Status: Acute Assessment and Plan: 81-year-old female with a past medical history of hypertension, hyperlipidemia, diabetes, CAD, CHF with EF of 55%, paroxysmal AFib on Xarelto, COPD, PFO, sarcoidosis, history of ventricular tachycardia, vitamin-D deficiency presented to the hospital today with a chief complaint of generalized weakness.? 1.Generalized weakness:? Likely in the setting of UTI/pneumonia.? Continued on ceftriaxone azithromycin.? Supportive care.? Cultures negative thus fr 2.COPD, borderline hypoxia, tachy and high ddimer.CTA to rule PE v/q low probability 3.Paroxysmal AFib:? Patient on Xarelto; Patient currently in sinus tach-likely in setting of dehydration/UTI. Unclear if the patient is compliant with Xarelto-will also obtain a D-dimer and if positive will consider V/Q scan 4.chronic diastolic CHF--euvolemic right now 5.History of hypertension: Continue home carvedilol.? Hold lisinopril for now. 6.History of diabetes:? Will hold home medications.? Insulin sliding scale for n ow. Code status: Full code Quality Stroke Does the patient have a stroke diagnosis?: No VTE Prior VTE?: No VTE Risk Level:: Medical - moderate - high VTE Device Contraindication: Treatment Not Indicated VTE Drug Contraindication: N/A - Med Ordered
--- NOTE | 2021-11-03 12:52 | MHC.CM.PN ---
RITIKA CONTACTED PT'S DTR CRISTINO DAUGHERTY AT 12:38PM [phone], PER CRISTINO SHE IS NOT THE HCP AND CAN NOT MAKE DECISIONS, CRISTINO DID REPORT THAT SHE WAS BRINGING PT MEALS EVERY DAY AND ASSISTING HER AT HOME, CRISTINO ALSO REPORTED PT HAS A CARE ANALYST THROUGH [facility] HOWEVER ONLY TWICE WEEKLY AND IT'S NOT ENOUGH, PT'S DTR REPORTS SHE DID HAVE A VNA AND HOME PT BUT THAT ENDED. CRISTINO REPORTS AT BASELINE PT WALKS AROUND APT W/WALKER AND USES ELECTRIC CHAIR FOR OUTSIDE OF APT. CRISTINO REPORTS SHE CAN NO LONGER ASSIST PT DUE TO HAVING AN A8YO AUTISTIC SON WHO NEEDS TO BE FED AND HER 5YO AND 5MO GRDCHILDREN AT HOME SINCE HER DTR RECENTLY. CM REACHED OUT TO PT'S HEALTH CARE AGENT TOMMY VELÁZQUEZ AT 1PM [phone] TO DISCUSS STR OPTIONS, NO ANSWER AND MESSAGE LEFT W/CM CONTACT INFO. CM WILL CONT TO FOLLOW D/C NEEDS.
[2021-11-03 16:25] LABS: Glucose, Whole Blood 115 mg/dL (60-115)
[2021-11-03] MEDS: 0.9 % Sodium Chloride Flush 3 ML SYRINGE IVFLUSH ×2 (16:40→21:19)
--- NOTE | 2021-11-03 18:04 | MHC.SL.SWA ---
Speech Pathologist Impression: Oral Phase Dysphagia Risk of Aspiration Due to: Medically Fragile History of Pneumonia Dysphasia Diet Status: Downgrade Liquid Consistency and Strategies for Safe Swallow: Liquid Intake Recommendation: Thin Liquid Intake Strategies: No Straws Solid Food Consistency: Dietary Recommendations: Chopped/Advanced (NDD3) Additional Modifications to Solid Foods: Pt enjoys liquid by straw, however is mildly impulsive and tends to chain sip. Would recommend restriction of use of straw. Oral Medication Intake: Whole with Liquid Compensatory Strategies and Precautions to be Taken for Safe Swallow: Sitting Upright (90 deg) No Straw Liquids from Cup Supervision While Eating and Drinking for Safe Swallow: Total Supervision (1:1) Foods to Avoid: Swallowing Recommended Treatments: Compens. Strategy Educat. Recommendation for Speech: Inpatient Speech Therapy Comment: Pt presents with delayed oral phase of swallow due to mastication, mild occasional delay of swallow on harder food consistencies. Pt had clinical s/s aspiration on chain sip of thin liquid (wet voice). Recommend DOWNGRADE diet to CHOPPED/ADVANCED (NDD3) and continue THIN LIQUIDS, but limit use of straw. PT will initially need total supervision during meals, as presents as occasionally impulsive, w/ monitor for signs of aspiration. Diet downgraded by [employer], , Nutrition notified of recommended downgrade by secure text. [employer] to follow PT while in hospital to re-asses swallow, monitor toleration of diet, advance or modify diet as needed Frequency/Duration: M-F while PT admitted Date Range for Service Req: Timeline to reassess: Quality Control Supervisor Clinican/Clinical Fellow: No Supervisory Statement: I have reviewed and agree with the student/clinical fellow's documentation: N/A Speech Language Pathologist: Lorna Enriquez M.A., CCC-[employer]
[2021-11-03 19:36] LABS: Glucose, Whole Blood 170 mg/dL (60-115)
[2021-11-03] MEDS: cefTRIAXone sodium 1 GM in 0.9 % Sodium Chloride 50 ML IV (21:19)
[2021-11-03] MEDS: Acetaminophen 325 MG TABLET 650 MG PO (22:00)
--- NOTE | 2021-11-03 23:50 | PC.NURSE ---
around 2315 pt had a 6 beat of vtach, vitals stable, pt asymptomatic, Dr. Fraga aware, labs ordered.
[2021-11-04] VITALS (9 sets, daily range): BP systolic 83–119; BP diastolic 50–71; PULSE 78–105; RESP 16–22; TEMP 36.3–37.1; O2SAT 90–98
[2021-11-04 00:37] LABS: Anion Gap 12 (12-20); Blood Urea Nitrogen 23 mg/dL (9-16); Calcium 8.2 mg/dL (8.4-10.2); Carbon Dioxide 26 mmol/L (22-29); Chloride 99 mmol/L (96-108); Creatinine Clr Calc Pharmacy 45.6; Estimated Glomerular Filt Rate > 60; Glucose Random 108 mg/dL (60-115); Magnesium 1.6 mg/dL (1.6-2.6); Potassium 4.7 mmol/L (3.3-5.1); Sodium 132 mmol/L (135-145)
[2021-11-04] MEDS: Acetaminophen 325 MG TABLET 650 MG PO ×2 (04:03→20:21)
[2021-11-04 07:45] LABS: Glucose, Whole Blood 98 mg/dL (60-115)
[2021-11-04] MEDS: Rivaroxaban 15 MG TABLET PO (08:18)
[2021-11-04] MEDS: Atorvastatin Calcium 20 MG TABLET PO (08:18)
[2021-11-04] MEDS: Gabapentin 600 MG TABLET 1200 MG PO ×2 (08:19→20:20)
[2021-11-04] MEDS: 0.9 % Sodium Chloride Flush 3 ML SYRINGE IVFLUSH ×3 (08:24→23:47)
[2021-11-04] MEDS: Fluticasone/Vilanterol 200/25 BLST.W.DEV 1 PUFF INHALE (08:52)
[2021-11-04 11:19] LABS: Glucose, Whole Blood 244 mg/dL (60-115)
[2021-11-04] MEDS: Insulin Lispro 100 UNIT/ML 3 ML VIAL SUBCUT (12:07)
--- NOTE | 2021-11-04 13:08 | MHC.CM.PN ---
Addendum entered by Lorna Joseph, RN 11/04/21 14:57: CM RECEIVED ANOTHER CALL FROM PT'S ALTERNATE HCP LUCINA WHO WAS TRYING TO CONTACT KRISTINE FOR AN INCREASE IN HOURS, LCUINA AWARE EVEN IF THEY COULD PROVIDE DIRECTOR OF TRAINING'S 24HRS THERE WOULD BE A COST TO THE FAMILY AND THERE COULD BE AN ISSUE W/DIRECTOR OF TRAINING'S NOT SHOWING UP, CM ENCOURAGED LUCINA TO PLACE PT IN [facility] UNTIL THEY CAN FIGURE OUT LOGISTICS OF CARING FOR PT AT HOME AND LUCINA REPORTED HE PREFERS [place], [place] SO HE COULD VISIT DAILY OR [facility] WHERE HCP TOMMY COULD VISIT PT. Original Note: CM RECEIVED A CALL FROM PT'S HCP TOMMY VELÁZQUEZ AND REPORTED THEY DO NOT WANT TO SEND PT TO [facility] AND HIS BROTHER AND ALTERNATE HCP LUCINA WHEELER WILL BRING HER TO [place] TO LIVE WITH HIM. CM CONTACTED LUCINA AT 1:02PM [phone] TO DISCUSS PLAN AND LUCINA DID NOT SEEM TO BE AWARE THAT PT WILL NEED 24HR CARE AND WANTED PT TO GO HOME W/A NURSE FIRST WILL HE FIGURED OUT WHAT TO DO, LUCINA IS NOW AWARE PT WILL NEED 24HR CARE AND OPTIONS ARE TO COME AND GET [place] [facility]ING HER TO [facility], STAY WITH PT AT HER HOME OR SEND PT TO [facility] WHILE HE MAKES ARRANGEMENTS FOR HER TO MOVE TO [facility], LUCINA IS AWARE THAT PT MAY NOT BE ABLE TO BE PLACED LOCALLY D/T PT NOT BEING VACCINATED, LUCINA REPORTS HE NEEDS TO DISCUSS THIS W/SIBLINGS AND WILL CALL CM BACK, LUCINA WAS PROVIDED W/CM CONTACT NUMBER.
--- NOTE | 2021-11-04 13:24 | MHC.CLN ---
F/U PATIENT SEEN BY APPETIZER PACKER WITH DIET CONSISTENCY CHANGED TO NDD3. SKIN: STAGE II TO SACRUM. BILATERAL BUTTOCKS NOT PRESSURE RELATED. INTAKE APPEARS 25-75%. CONTINUE GLUCERNA BID. CONTINUE TO FOLLOW SKIN AND INTAKE.
[2021-11-04 16:24] LABS: Glucose, Whole Blood 119 mg/dL (60-115)
--- NOTE | 2021-11-04 17:39 | MHC.SL.SWA ---
Speech Pathologist Impression: Oral Phase Dysphagia Risk of Aspiration Due to: Medically Fragile History of Pneumonia Dysphasia Diet Status: No Change Liquid Consistency and Strategies for Safe Swallow: Liquid Intake Recommendation: Thin Liquid Intake Strategies: Small Sips Solid Food Consistency: Dietary Recommendations: Chopped/Advanced (NDD3) Additional Modifications to Solid Foods: Recommend CHOPPED/ADVANCED (NDD3) solids and THIN liquids, with pills whole in liquid or puree. Patient tolerated liquid by straw this date, and displayed safer eating habits, taking small bites and sips, taking individual sips. Recommend continue total supervision given history of impulsivity during meals. Continue aspiration precautions. CONTACT LENS MANUFACTURER will continue to follow. Oral Medication Intake: Whole with Puree Compensatory Strategies and Precautions to be Taken for Safe Swallow: Sitting Upright (90 deg) Small Bites and Sips Alternate Liquids/Solids Rate of Ingestion Change Avoid Specific Foods Supervision While Eating and Drinking for Safe Swallow: Total Supervision (1:1) Foods to Avoid: Patient is edentulous and has only bottom dentures. Recommend avoid tough, difficult to chew solids. Swallowing Recommended Treatments: Compens. Strategy Educat. Recommendation for Speech: Inpatient Speech Therapy Director Of Federal Sales Clinican/Clinical Fellow: No Supervisory Statement: I have reviewed and agree with the student/clinical fellow's documentation: N/A Speech Language Pathologist: Clemencia Crane M.A., [facility]-CONTACT LENS MANUFACTURER
[2021-11-04] MEDS: carvediloL 12.5 MG TABLET PO (20:20)
[2021-11-04] MEDS: Melatonin 3 MG TABLET 6 MG PO (20:21)
[2021-11-04 20:55] LABS: Glucose, Whole Blood 145 mg/dL (60-115)
[2021-11-04] MEDS: cefTRIAXone sodium 1 GM in 0.9 % Sodium Chloride 50 ML IV (21:32)
[2021-11-04] MEDS: Azithromycin 500 MG in 0.9 % Sodium Chloride 250 ML 125 MG IV (22:09)
[2021-11-05] VITALS (8 sets, daily range): BP systolic 105–141; BP diastolic 57–68; PULSE 77–100; RESP 16–18; TEMP 36.2–36.7; O2SAT 95–97
[2021-11-05] MEDS: Fluticasone/Vilanterol 200/25 BLST.W.DEV 1 PUFF INHALE (07:36)
[2021-11-05 07:43] LABS: Glucose, Whole Blood 108 mg/dL (60-115)
[2021-11-05] MEDS: Gabapentin 600 MG TABLET 1200 MG PO ×2 (08:24→20:53)
[2021-11-05] MEDS: lisinopriL 5 MG TABLET PO (08:24)
[2021-11-05] MEDS: carvediloL 12.5 MG TABLET PO ×2 (08:24→20:52)
[2021-11-05] MEDS: Atorvastatin Calcium 20 MG TABLET PO (08:24)
[2021-11-05] MEDS: Magnesium Oxide 400 MG TABLET 800 MG PO (08:24)
[2021-11-05] MEDS: 0.9 % Sodium Chloride Flush 3 ML SYRINGE IVFLUSH ×3 (08:24→20:54)
[2021-11-05] MEDS: Rivaroxaban 15 MG TABLET PO (08:24)
[2021-11-05 11:41] LABS: Glucose, Whole Blood 181 mg/dL (60-115)
--- NOTE | 2021-11-05 11:59 | MHC.CM.PN ---
PER HOSPITALIST PT CLEARED FOR D/C, 15 NEW REFERRALS SENT TO [facility] AND 10 REFERRALS SENT TO [facility] PER FAMILY REQUEST.
[2021-11-05] MEDS: Insulin Lispro 100 UNIT/ML 3 ML VIAL SUBCUT (12:02)
--- NOTE | 2021-11-05 12:31 | HO.PM.IMPN ---
Subjective Subjective Date of Service: 11/05/21 Interval History: aspirational pneumonia, copd excerebation Review of Systems Shortness of breath seems to improving ,denies any urinary complaints. Physical Exam Vital Signs: Vital Signs: Last Vital Signs Temp 97.2 F 11/05/21 11:32 Pulse 99 11/05/21 11:32 Resp 16 11/05/21 11:32 BP 105/65 11/05/21 11:32 Pulse Ox 95 11/05/21 11:32 Oxygen Flow Rate 3 10/31/21 22:53 BMI result Body Mass Index 21.0 General: AO X 2, no acute distress Resp:? CTA bilateral CVS: S1,S2,RRR GI: +BS, NT, no distention Skin: No rash Neuro:? motor grossly intact Psych: appropriate affect Objective Data Active Medications Acetaminophen (Acetaminophen 325 Mg Tablet) 650 mg PO Q6H PRN PRN Reason: Pain, Mild (Pain Scale 1-3) Last Admin: 11/04/21 20:21 Dose: 650 mg Documented by: ANN-MARIE Albuterol/Ipratropium (Albuterol/Iprat 2.5/0.5mg 3 Ml Ampul.Neb) 3 ml INHALE RQ4H PRN PRN Reason: Shortness of Breath/Wheezing Atorvastatin Calcium (Atorvastatin Calcium 20 Mg Tablet) 20 mg PO DAILY [facility] Last Admin: 11/05/21 08:24 Dose: 20 mg Documented by: GREGORY Carvedilol (Carvedilol 12.5 Mg Tablet) 12.5 mg PO BID [facility]; Protocol Last Admin: 11/05/21 08:24 Dose: 12.5 mg Documented by: GREGORY Dextrose (Dextrose 50 % 25 Gm/50 Ml Vial) 25 gm IVPUSH Q15M PRN; Protocol PRN Reason: per Hypoglycemia Standing Ord. Fluticasone/Vilanterol (Fluticasone/Vilanterol 200/25 Blst.W.Dev) 1 puff INHALE DAILY [facility] Last Admin: 11/05/21 07:36 Dose: 1 puff Documented by: IAN Gabapentin (Gabapentin 600 Mg Tablet) 1,200 mg PO BID [facility] Last Admin: 11/05/21 08:24 Dose: 1,200 mg Documented by: GREGORY Glucose (Glucose Gel 15 Gm Gel..Gram.) 15 gm PO Q15M PRN; Protocol PRN Reason: per Hypoglycemia Standing Ord. Ceftriaxone Sodium 1 gm/ (Sodium Chloride) 50 mls @ 100 mls/hr IV Q24H [facility] Last Infusion: 11/04/21 22:15 Dose: 0 mls/hr Documented by: ANN-MARIE Azithromycin 500 mg/ Sodium (Chloride) 250 mls @ 125 mls/hr IV Q24H [facility] Last Infusion: 11/05/21 00:35 Dose: 0 mls/hr Documented by: ANN-MARIE Insulin Human Lispro (Insulin Lispro 100 Unit/Ml 3 Ml Vial) 0 unit SUBCUT QIDACHS [facility]; Protocol Last Admin: 11/05/21 12:02 Dose: 2 unit Documented by: DABComfort Lisinopril (Lisinopril 5 Mg Tablet) 5 mg PO DAILY [facility]; Protocol Last Admin: 11/05/21 08:24 Dose: 5 mg Documented by: GREGORY Magnesium Oxide (Magnesium Oxide 400 Mg Tablet) 800 mg PO DAILY [facility] Last Admin: 11/05/21 08:24 Dose: 800 mg Documented by: GREGORY Melatonin (Melatonin 3 Mg Tablet) 6 mg PO BEDTIME PRN PRN Reason: Insomnia Last Admin: 11/04/21 20:21 Dose: 6 mg Documented by: ANN-MARIE Rivaroxaban (Rivaroxaban 15 Mg Tablet) 15 mg PO DAILY [facility] Last Admin: 11/05/21 08:24 Dose: 15 mg Documented by: GREGORY Senna (Sennosides 8.6 Mg Tablet) 17.2 mg PO BEDTIME PRN PRN Reason: Constipation Sodium Chloride (0.9 % Sodium Chloride Flush 3 Ml Syringe) 3 ml IVFLUSH QSHIFT [facility] Last Admin: 11/05/21 08:24 Dose: 3 ml Documented by: GREGORY Labs CBC & Chem 7: 11/01/21 03:31 11/03/21 23:36 Labs: Laboratory Results - last 24 hr 11/04/21 11/04/21 11/05/21 16:16 20:30 07:17 POC Glucose 119 H 145 H 108 11/05/21 11:21 POC Glucose 181 H Microbiology Microbiology Results: Microbiology 11/03/21 10:15 Urine Culture - Final Urine clean catch - Urine barry top No growth. Assessment and Plan (1) UTI (urinary tract infection): Status: Acute Assessment and Plan: 81-year-old female with a past medical history of hypertension, hyperlipidemia, diabetes, CAD, CHF with EF of 55%, paroxysmal AFib on Xarelto, COPD, PFO, sarcoidosis, history of ventricular tachycardia, vitamin-D deficiency presented to the hospital today with a chief complaint of generalized weakness.? 1.Generalized weakness:? Likely in the setting of UTI/pneumonia.? Continued on ceftriaxone azithromycin day4.? Supportive care.? Cultures negative thus for. 2.COPD, borderline hypoxia, tachy and high ddimer. CTA to rule PE v/q low probability 3.Paroxysmal AFib:? Patient on Xarelto; Patient currently in sinus tach-likely in setting of dehydration/UTI. Unclear if the patient is compliant with Xarelto-will also obtain a D-dimer and if positive will consider V/Q scan 4.chronic diastolic CHF--euvolemic right now. 5.History of hypertension: Continue home carvedilol.? Hold lisinopril for now. 6.History of diabetes:? fs running 100-180 range :Will hold home medications.? Insulin sliding scale adjusted sliding scale , avoid coverage below 200. Code status: Full code Quality Stroke Does the patient have a stroke diagnosis?: No VTE Prior VTE?: No VTE Risk Level:: Medical - moderate - high VTE Device Contraindication: Treatment Not Indicated VTE Drug Contraindication: N/A - Med Ordered
[2021-11-05 16:14] LABS: Glucose, Whole Blood 113 mg/dL (60-115)
[2021-11-05] MEDS: cefTRIAXone sodium 1 GM in 0.9 % Sodium Chloride 50 ML IV (20:52)
[2021-11-05 20:56] LABS: Glucose, Whole Blood 164 mg/dL (60-115)
[2021-11-05] MEDS: Azithromycin 500 MG in 0.9 % Sodium Chloride 250 ML 125 MG IV (21:41)
[2021-11-06] VITALS (12 sets, daily range): BP systolic 103–145; BP diastolic 55–90; PULSE 80–103; RESP 16–22; TEMP 36–36.8; O2SAT 90–98
[2021-11-06 07:33] LABS: Glucose, Whole Blood 95 mg/dL (60-115)
[2021-11-06] MEDS: 0.9 % Sodium Chloride Flush 3 ML SYRINGE IVFLUSH ×2 (08:50→21:39)
[2021-11-06] MEDS: Magnesium Oxide 400 MG TABLET 800 MG PO (08:51)
[2021-11-06] MEDS: Rivaroxaban 15 MG TABLET PO (08:51)
[2021-11-06] MEDS: lisinopriL 5 MG TABLET PO (08:51)
[2021-11-06] MEDS: carvediloL 12.5 MG TABLET PO ×2 (08:51→21:38)
[2021-11-06] MEDS: Gabapentin 600 MG TABLET 1200 MG PO ×2 (08:51→21:38)
[2021-11-06] MEDS: Atorvastatin Calcium 20 MG TABLET PO (08:51)
--- NOTE | 2021-11-06 09:34 | HO.PM.IMPN ---
Subjective Subjective Date of Service: 11/06/21 Interval History: aspirational pneumonia, copd . Review of Systems Shortness of breath seems to improved ,denies any urinary complaints. Physical Exam Vital Signs: Vital Signs: Last Vital Signs Temp 96.8 F 11/06/21 07:16 Pulse 95 11/06/21 07:16 Resp 16 11/06/21 07:16 BP 104/55 L 11/06/21 07:16 Pulse Ox 97 11/06/21 07:16 Oxygen Flow Rate 3 10/31/21 22:53 BMI result Body Mass Index 21.0 General: AO X 2, no acute distress Resp:? CTA bilateral CVS: S1,S2,RRR GI: +BS, NT, no distention Skin: No rash Neuro:? motor grossly intact Psych: appropriate affect Objective Data Active Medications Acetaminophen (Acetaminophen 325 Mg Tablet) 650 mg PO Q6H PRN PRN Reason: Pain, Mild (Pain Scale 1-3) Last Admin: 11/04/21 20:21 Dose: 650 mg Documented by: ANN-MARIE Albuterol/Ipratropium (Albuterol/Iprat 2.5/0.5mg 3 Ml Ampul.Neb) 3 ml INHALE RQ4H PRN PRN Reason: Shortness of Breath/Wheezing Atorvastatin Calcium (Atorvastatin Calcium 20 Mg Tablet) 20 mg PO DAILY [facility] Last Admin: 11/06/21 08:51 Dose: 20 mg Documented by: KENZIE Carvedilol (Carvedilol 12.5 Mg Tablet) 12.5 mg PO BID [facility]; Protocol Last Admin: 11/06/21 08:51 Dose: 12.5 mg Documented by: KENZIE Dextrose (Dextrose 50 % 25 Gm/50 Ml Vial) 25 gm IVPUSH Q15M PRN; Protocol PRN Reason: per Hypoglycemia Standing Ord. Fluticasone/Vilanterol (Fluticasone/Vilanterol 200/25 Blst.W.Dev) 1 puff INHALE DAILY [facility] Last Admin: 11/06/21 07:59 Dose: Not Given Documented by: IAN Non-Admin Reason: Patient Asleep Gabapentin (Gabapentin 600 Mg Tablet) 1,200 mg PO BID [facility] Last Admin: 11/06/21 08:51 Dose: 1,200 mg Documented by: HO.NGENOAL Glucose (Glucose Gel 15 Gm Gel..Gram.) 15 gm PO Q15M PRN; Protocol PRN Reason: per Hypoglycemia Standing Ord. Ceftriaxone Sodium 1 gm/ (Sodium Chloride) 50 mls @ 100 mls/hr IV Q24H [facility] Last Infusion: 11/05/21 21:42 Dose: 0 mls/hr Documented by: PAULA Azithromycin 500 mg/ Sodium (Chloride) 250 mls @ 125 mls/hr IV Q24H [facility] Last Infusion: 11/06/21 00:19 Dose: 0 mls/hr Documented by: PAULA Insulin Human Lispro (Insulin Lispro 100 Unit/Ml 3 Ml Vial) 0 unit SUBCUT QIDACHS [facility]; Protocol Last Admin: 11/06/21 07:39 Dose: Not Given Documented by: KENZIE Non-Admin Reason: No Insulin Coverage Lisinopril (Lisinopril 5 Mg Tablet) 5 mg PO DAILY [facility]; Protocol Last Admin: 11/06/21 08:51 Dose: 5 mg Documented by: KENZIE Magnesium Oxide (Magnesium Oxide 400 Mg Tablet) 800 mg PO DAILY [facility] Last Admin: 11/06/21 08:51 Dose: 800 mg Documented by: KENZIE Melatonin (Melatonin 3 Mg Tablet) 6 mg PO BEDTIME PRN PRN Reason: Insomnia Last Admin: 11/04/21 20:21 Dose: 6 mg Documented by: ANN-MARIE Rivaroxaban (Rivaroxaban 15 Mg Tablet) 15 mg PO DAILY [facility] Last Admin: 11/06/21 08:51 Dose: 15 mg Documented by: KENZIE Senna (Sennosides 8.6 Mg Tablet) 17.2 mg PO BEDTIME PRN PRN Reason: Constipation Sodium Chloride (0.9 % Sodium Chloride Flush 3 Ml Syringe) 3 ml IVFLUSH QSHIFT [facility] Last Admin: 11/06/21 08:50 Dose: 3 ml Documented by: KENZIE Labs CBC & Chem 7: 11/01/21 03:31 11/03/21 23:36 Labs: Laboratory Results - last 24 hr 11/05/21 11/05/21 11/05/21 11:21 16:09 20:38 POC Glucose 181 H 113 164 H 11/06/21 07:22 POC Glucose 95 Microbiology Microbiology Results: Microbiology 11/01/21 02:26 Blood Culture - Final Blood - Venous No growth after 5 days. 11/01/21 02:26 Blood Culture - Final Blood - Venous No growth after 5 days. Assessment and Plan (1) COPD (chronic obstructive pulmonary disease): Status: Acute Assessment and Plan: 81-year-old female with a past medical history of hypertension, hyperlipidemia, diabetes, CAD, CHF with EF of 55%, paroxysmal AFib on Xarelto, COPD, PFO, sarcoidosis, history of ventricular tachycardia, vitamin-D deficiency presented to the hospital today with a chief complaint of generalized weakness.? 1.Generalized weakness:? Likely in the setting of UTI/pneumonia.?switched to po ceftin/azithro.? Supportive care.? Cultures negative thus for. 2.COPD, borderline hypoxia, tachy and high ddimer. CTA to rule PE v/q low probability 3.Paroxysmal AFib:? Patient on Xarelto; Patient currently in sinus tach-likely in setting of dehydration/UTI. Unclear if the patient is compliant with Xarelto-will also obtain a D-dimer and if positive will consider V/Q scan 4.chronic diastolic CHF--euvolemic right now. 5.History of hypertension: Continue home carvedilol.? Hold lisinopril for now. 6.History of diabetes:? fs running 100-160range :Will hold home medications.? Insulin sliding scale adjusted sliding scale , avoid coverage below 200. Code status: Full code awiating placement Quality Stroke Does the patient have a stroke diagnosis?: No VTE Prior VTE?: No VTE Risk Level:: Medical - moderate - high VTE Device Contraindication: Treatment Not Indicated VTE Drug Contraindication: N/A - Med Ordered
[2021-11-06 11:28] LABS: Glucose, Whole Blood 381 mg/dL (60-115)
[2021-11-06] MEDS: Albuterol/Iprat 2.5/0.5MG 3 ML AMPUL.NEB INHALE ×3 (11:47→20:17)
[2021-11-06] MEDS: Insulin Lispro 100 UNIT/ML 3 ML VIAL SUBCUT ×2 (11:58→21:41)
[2021-11-06] MEDS: predniSONE 20 MG TABLET PO (11:58)
--- NOTE | 2021-11-06 12:51 | MHC.CM.PN ---
FORMING MILL OPERATOR AT [facility] IN [place], [place] ([phone]) STATES THAT FACILITY ACCEPTS NON-VACCINATED PATIENTS BUT CURRENTLY DOES NOT HAVE A BED TO OFFER. FACILITY DOES ACCEPT [facility] MOST OF STAFF IS GONE FOR THE HOLIDAY AND SHE ASKS THAT WE CALL BACK ON TUESDAY FOR ANY UPDATES. SON/HCP LUCINA ([phone]) AWARE. LUCINA IS ALSO AWARE THAT [facility] AND NOW [facility] ARE CURRENTLY FOLLOWING. NO INSURANCE CAN BE AUTHORIZED OVER THE WEEKEND
--- NOTE | 2021-11-06 13:10 | MHC.CLN ---
F/U DIET=DIABETIC 2000 KCAL, NDD3. SKIN: STAGE II TO SACRUM. INTAKE APPEARS 25-75%. CONTINUE GLUCERNA BID (474 KCAL, 20 G PROTEIN) TO PROMOTE WOUND HEALING.. CONTINUE TO FOLLOW SKIN AND INTAKE.
--- NOTE | 2021-11-06 13:20 | MHC.SLORD ---
Speech Language Pathology Order Status: Attempted to see pt. this am, Pt sleeping soundly. Breakfast tray present, had eaten well. Will reattempt Tue, 11/09.
[2021-11-06 16:51] LABS: Glucose, Whole Blood 145 mg/dL (60-115)
[2021-11-06 20:41] LABS: Glucose, Whole Blood 306 mg/dL (60-115)
[2021-11-06] MEDS: Azithromycin 500 MG TABLET PO (21:38)
[2021-11-07] VITALS (7 sets, daily range): BP systolic 111–142; BP diastolic 61–83; PULSE 90–103; RESP 14–18; TEMP 35.9–37; O2SAT 92–99
[2021-11-07 07:36] LABS: Glucose, Whole Blood 106 mg/dL (60-115)
[2021-11-07] MEDS: Gabapentin 600 MG TABLET 1200 MG PO ×2 (09:37→20:34)
[2021-11-07] MEDS: predniSONE 20 MG TABLET PO (09:38)
[2021-11-07] MEDS: 0.9 % Sodium Chloride Flush 3 ML SYRINGE IVFLUSH ×2 (09:38→17:21)
[2021-11-07] MEDS: Rivaroxaban 15 MG TABLET PO (09:38)
[2021-11-07] MEDS: carvediloL 12.5 MG TABLET PO ×2 (09:38→20:35)
[2021-11-07] MEDS: Atorvastatin Calcium 20 MG TABLET PO (09:38)
[2021-11-07] MEDS: lisinopriL 5 MG TABLET PO (09:38)
[2021-11-07] MEDS: Magnesium Oxide 400 MG TABLET 800 MG PO (09:38)
--- NOTE | 2021-11-07 11:22 | HO.PM.IMPN ---
Subjective Subjective Date of Service: 11/07/21 Interval History: aspirational pneumonia, copd . Review of Systems Shortness of breath seems to improved ,denies any urinary complaints. Physical Exam Vital Signs: Vital Signs: Last Vital Signs Temp 97.0 F 11/07/21 08:00 Pulse 93 11/07/21 08:00 Resp 18 11/07/21 08:00 BP 135/69 11/07/21 08:00 Pulse Ox 99 11/07/21 08:00 Oxygen Flow Rate 3 10/31/21 22:53 BMI result Body Mass Index 21.0 General: AO X 2, no acute distress Resp:? CTA bilateral CVS: S1,S2,RRR GI: +BS, NT, no distention Skin: No rash Neuro:? motor grossly intact Psych: appropriate affect Objective Data Active Medications Acetaminophen (Acetaminophen 325 Mg Tablet) 650 mg PO Q6H PRN PRN Reason: Pain, Mild (Pain Scale 1-3) Last Admin: 11/04/21 20:21 Dose: 650 mg Documented by: ANN-MARIE Albuterol/Ipratropium (Albuterol/Iprat 2.5/0.5mg 3 Ml Ampul.Neb) 3 ml INHALE RQ4H PRN PRN Reason: Shortness of Breath/Wheezing Albuterol/Ipratropium (Albuterol/Iprat 2.5/0.5mg 3 Ml Ampul.Neb) 3 ml INHALE RQ4H WHILE AWAKE [facility] Last Admin: 11/07/21 07:38 Dose: Not Given Documented by: DALE Non-Admin Reason: Patient Asleep Atorvastatin Calcium (Atorvastatin Calcium 20 Mg Tablet) 20 mg PO DAILY [facility] Last Admin: 11/07/21 09:38 Dose: 20 mg Documented by: SANDY Azithromycin (Azithromycin 500 Mg Tablet) 500 mg PO Q24H [facility] Last Admin: 11/06/21 21:38 Dose: 500 mg Documented by: SWAPNA Carvedilol (Carvedilol 12.5 Mg Tablet) 12.5 mg PO BID [facility]; Protocol Last Admin: 11/07/21 09:38 Dose: 12.5 mg Documented by: SANDY Cefuroxime Axetil (Cefuroxime Axetil 500 Mg Tablet) 500 mg PO Q12H [facility] Last Admin: 11/07/21 09:38 Dose: 500 mg Documented by: SANDY Dextrose (Dextrose 50 % 25 Gm/50 Ml Vial) 25 gm IVPUSH Q15M PRN; Protocol PRN Reason: per Hypoglycemia Standing Ord. Fluticasone/Vilanterol (Fluticasone/Vilanterol 200/25 Blst.W.Dev) 1 puff INHALE DAILY [facility] Last Admin: 11/07/21 07:38 Dose: Not Given Documented by: ADLE Non-Admin Reason: Patient Asleep Gabapentin (Gabapentin 600 Mg Tablet) 1,200 mg PO BID [facility] Last Admin: 11/07/21 09:37 Dose: 1,200 mg Documented by: SANDY Glucose (Glucose Gel 15 Gm Gel..Gram.) 15 gm PO Q15M PRN; Protocol PRN Reason: per Hypoglycemia Standing Ord. Insulin Human Lispro (Insulin Lispro 100 Unit/Ml 3 Ml Vial) 0 unit SUBCUT QIDACHS [facility]; Protocol Last Admin: 11/07/21 07:50 Dose: Not Given Documented by: SANDY Non-Admin Reason: No Insulin Coverage Lisinopril (Lisinopril 5 Mg Tablet) 5 mg PO DAILY [facility]; Protocol Last Admin: 11/07/21 09:38 Dose: 5 mg Documented by: SANDY Magnesium Oxide (Magnesium Oxide 400 Mg Tablet) 800 mg PO DAILY [facility] Last Admin: 11/07/21 09:38 Dose: 800 mg Documented by: SANDY Melatonin (Melatonin 3 Mg Tablet) 6 mg PO BEDTIME PRN PRN Reason: Insomnia Last Admin: 11/04/21 20:21 Dose: 6 mg Documented by: ANN-MARIE Prednisone (Prednisone 20 Mg Tablet) 20 mg PO DAILY [facility] Last Admin: 11/07/21 09:38 Dose: 20 mg Documented by: SANDY Rivaroxaban (Rivaroxaban 15 Mg Tablet) 15 mg PO DAILY [facility] Last Admin: 11/07/21 09:38 Dose: 15 mg Documented by: SANDY Senna (Sennosides 8.6 Mg Tablet) 17.2 mg PO BEDTIME PRN PRN Reason: Constipation Sodium Chloride (0.9 % Sodium Chloride Flush 3 Ml Syringe) 3 ml IVFLUSH QSHIFT [facility] Last Admin: 11/07/21 09:38 Dose: 3 ml Documented by: SANDY Labs CBC & Chem 7: 11/01/21 03:31 11/03/21 23:36 Labs: Laboratory Results - last 24 hr 11/06/21 11/06/21 11/06/21 11:23 15:43 20:25 POC Glucose 381 H* 145 H 306 H 11/07/21 07:10 POC Glucose 106 Assessment and Plan (1) UTI (urinary tract infection): Status: Acute (2) COPD (chronic obstructive pulmonary disease): Status: Acute Assessment and Plan: 81-year-old female with a past medical history of hypertension, hyperlipidemia, diabetes, CAD, CHF with EF of 55%, paroxysmal AFib on Xarelto, COPD, PFO, sarcoidosis, history of ventricular tachycardia, vitamin-D deficiency presented to the hospital today with a chief complaint of generalized weakness.? 1.Generalized weakness:? Likely in the setting of UTI/pneumonia.?switched to po ceftin/azithro.? Supportive care.? Cultures negative thus for. 2.COPD, borderline hypoxia, tachy and high ddimer. CTA to rule PE v/q low probability 3.Paroxysmal AFib:? Patient on Xarelto; Patient currently in sinus tach-likely in setting of dehydration/UTI. Unclear if the patient is compliant with Xarelto-will also obtain a D-dimer and if positive will consider V/Q scan 4.chronic diastolic CHF--euvolemic right now. 5.History of hypertension: Continue home carvedilol.? Hold lisinopril for now. 6.History of diabetes:? fs running 100-160range :Will hold home medications.? Insulin sliding scale adjusted sliding scale , avoid coverage below 200. Code status: Full code awiating placement Quality Stroke Does the patient have a stroke diagnosis?: No VTE Prior VTE?: No VTE Risk Level:: Medical - moderate - high VTE Device Contraindication: Treatment Not Indicated VTE Drug Contraindication: N/A - Med Ordered
[2021-11-07 11:49] LABS: Glucose, Whole Blood 178 mg/dL (60-115)
[2021-11-07 16:57] LABS: Glucose, Whole Blood 346 mg/dL (60-115)
[2021-11-07] MEDS: Insulin Lispro 100 UNIT/ML 3 ML VIAL SUBCUT ×2 (17:58→20:34)
[2021-11-07 20:13] LABS: Glucose, Whole Blood 397 mg/dL (60-115)
[2021-11-07] MEDS: Azithromycin 500 MG TABLET PO (20:34)
[2021-11-08] VITALS (7 sets, daily range): BP systolic 121–143; BP diastolic 68–80; PULSE 78–100; RESP 17–18; TEMP 36.1–36.6; O2SAT 92–96
[2021-11-08] MEDS: 0.9 % Sodium Chloride Flush 3 ML SYRINGE IVFLUSH ×3 (01:03→21:42)
[2021-11-08 08:00] LABS: Glucose, Whole Blood 101 mg/dL (60-115)
[2021-11-08] MEDS: Gabapentin 600 MG TABLET 1200 MG PO ×2 (09:27→21:20)
[2021-11-08] MEDS: carvediloL 12.5 MG TABLET PO ×2 (09:28→21:21)
[2021-11-08] MEDS: Atorvastatin Calcium 20 MG TABLET PO (09:28)
[2021-11-08] MEDS: Magnesium Oxide 400 MG TABLET 800 MG PO (09:28)
[2021-11-08] MEDS: Rivaroxaban 15 MG TABLET PO (09:28)
[2021-11-08] MEDS: lisinopriL 5 MG TABLET PO (09:28)
[2021-11-08] MEDS: predniSONE 20 MG TABLET PO (09:28)
--- NOTE | 2021-11-08 10:17 | HO.PM.IMPN ---
Subjective Subjective Date of Service: 11/08/21 Interval History: aspirational pneumonia, copd . Review of Systems Patient denies any shortness of breath or abdominal pain or fever or chills. Eating breakfast comfortably. Physical Exam Vital Signs: Vital Signs: Last Vital Signs Temp 97.1 F 11/08/21 07:20 Pulse 92 11/08/21 07:20 Resp 18 11/08/21 07:20 BP 143/80 H 11/08/21 07:20 Pulse Ox 96 11/08/21 07:20 Oxygen Flow Rate 3 10/31/21 22:53 BMI result Body Mass Index 21.0 General: AO X 2, no acute distress Resp:? CTA bilateral CVS: S1,S2,RRR GI: +BS, NT, no distention Skin: No rash Neuro:? motor grossly intact Psych: appropriate affect Objective Data Active Medications Acetaminophen (Acetaminophen 325 Mg Tablet) 650 mg PO Q6H PRN PRN Reason: Pain, Mild (Pain Scale 1-3) Last Admin: 11/04/21 20:21 Dose: 650 mg Documented by: ANN-MARIE Albuterol/Ipratropium (Albuterol/Iprat 2.5/0.5mg 3 Ml Ampul.Neb) 3 ml INHALE RQ4H WHILE AWAKE [facility] Last Admin: 11/08/21 08:00 Dose: Not Given Documented by: DALE Non-Admin Reason: Patient Refused Atorvastatin Calcium (Atorvastatin Calcium 20 Mg Tablet) 20 mg PO DAILY [facility] Last Admin: 11/08/21 09:28 Dose: 20 mg Documented by: SWAPNA Azithromycin (Azithromycin 500 Mg Tablet) 500 mg PO Q24H [facility] Last Admin: 11/07/21 20:34 Dose: 500 mg Documented by: SWAPNA Carvedilol (Carvedilol 12.5 Mg Tablet) 12.5 mg PO BID [facility]; Protocol Last Admin: 11/08/21 09:28 Dose: 12.5 mg Documented by: SWAPNA Cefuroxime Axetil (Cefuroxime Axetil 500 Mg Tablet) 500 mg PO Q12H [facility] Last Admin: 11/08/21 09:28 Dose: 500 mg Documented by: SWAPNA Dextrose (Dextrose 50 % 25 Gm/50 Ml Vial) 25 gm IVPUSH Q15M PRN; Protocol PRN Reason: per Hypoglycemia Standing Ord. Fluticasone/Vilanterol (Fluticasone/Vilanterol 200/25 Blst.W.Dev) 1 puff INHALE DAILY [facility] Last Admin: 11/08/21 08:00 Dose: Not Given Documented by: DALE Non-Admin Reason: Patient Refused Gabapentin (Gabapentin 600 Mg Tablet) 1,200 mg PO BID [facility] Last Admin: 11/08/21 09:27 Dose: 1,200 mg Documented by: SWAPNA Glucose (Glucose Gel 15 Gm Gel..Gram.) 15 gm PO Q15M PRN; Protocol PRN Reason: per Hypoglycemia Standing Ord. Insulin Human Lispro (Insulin Lispro 100 Unit/Ml 3 Ml Vial) 0 unit SUBCUT QIDACHS [facility]; Protocol Last Admin: 11/08/21 08:08 Dose: Not Given Documented by: SWAPNA Non-Admin Reason: No Insulin Coverage Lisinopril (Lisinopril 5 Mg Tablet) 5 mg PO DAILY [facility]; Protocol Last Admin: 11/08/21 09:28 Dose: 5 mg Documented by: SWAPNA Magnesium Oxide (Magnesium Oxide 400 Mg Tablet) 800 mg PO DAILY [facility] Last Admin: 11/08/21 09:28 Dose: 800 mg Documented by: SWAPNA Melatonin (Melatonin 3 Mg Tablet) 6 mg PO BEDTIME PRN PRN Reason: Insomnia Last Admin: 11/04/21 20:21 Dose: 6 mg Documented by: ANN-MARIE Prednisone (Prednisone 20 Mg Tablet) 20 mg PO DAILY [facility] Last Admin: 11/08/21 09:28 Dose: 20 mg Documented by: SWAPNA Rivaroxaban (Rivaroxaban 15 Mg Tablet) 15 mg PO DAILY [facility] Last Admin: 11/08/21 09:28 Dose: 15 mg Documented by: SWAPNA Senna (Sennosides 8.6 Mg Tablet) 17.2 mg PO BEDTIME PRN PRN Reason: Constipation Sodium Chloride (0.9 % Sodium Chloride Flush 3 Ml Syringe) 3 ml IVFLUSH QSHIFT [facility] Last Admin: 11/08/21 09:28 Dose: 3 ml Documented by: SWAPNA Labs CBC & Chem 7: 11/01/21 03:31 11/03/21 23:36 Labs: Laboratory Results - last 24 hr 11/07/21 11/07/21 11/07/21 11:22 16:21 19:43 POC Glucose 178 H 346 H 397 H* 11/08/21 07:19 POC Glucose 101 Assessment and Plan (1) UTI (urinary tract infection): Status: Acute (2) COPD (chronic obstructive pulmonary disease): Status: Acute Assessment and Plan: 81-year-old female with a past medical history of hypertension, hyperlipidemia, diabetes, CAD, CHF with EF of 55%, paroxysmal AFib on Xarelto, COPD, PFO, sarcoidosis, history of ventricular tachycardia, vitamin-D deficiency presented to the hospital today with a chief complaint of generalized weakness.? 1.Generalized weakness:? Likely in the setting of UTI/pneumonia.?switched to po ceftin/azithro.? Supportive care.? Cultures negative thus for. 2.COPD, borderline hypoxia, tachy and high ddimer. CTA to rule PE v/q low probability 3.Paroxysmal AFib:? Patient on Xarelto; Patient currently in sinus tach-likely in setting of dehydration/UTI. 4.chronic diastolic CHF--euvolemic right now. 5.History of hypertension: Continue home carvedilol.? Hold lisinopril for now. 6.History of diabetes:? fs running 100-160range :Will hold home medications.? Insulin sliding scale adjusted sliding scale , avoid coverage below 200. Code status: Full code awiating placement Quality Stroke Does the patient have a stroke diagnosis?: No VTE Prior VTE?: No VTE Risk Level:: Medical - moderate - high VTE Device Contraindication: Treatment Not Indicated VTE Drug Contraindication: N/A - Med Ordered
[2021-11-08 11:30] LABS: Glucose, Whole Blood 194 mg/dL (60-115)
[2021-11-08 16:36] LABS: Glucose, Whole Blood 287 mg/dL (60-115)
[2021-11-08] MEDS: Insulin Lispro 100 UNIT/ML 3 ML VIAL SUBCUT ×2 (16:44→21:21)
[2021-11-08] MEDS: Albuterol/Iprat 2.5/0.5MG 3 ML AMPUL.NEB INHALE (20:08)
[2021-11-08 20:47] LABS: Glucose, Whole Blood 321 mg/dL (60-115)
[2021-11-08] MEDS: Azithromycin 500 MG TABLET PO (21:20)
[2021-11-09] VITALS (14 sets, daily range): BP systolic 111–155; BP diastolic 58–88; PULSE 70–97; RESP 16–20; TEMP 36.1–37.4; O2SAT 95–100
[2021-11-09] MEDS: Albuterol/Iprat 2.5/0.5MG 3 ML AMPUL.NEB INHALE ×4 (07:31→20:06)
[2021-11-09] MEDS: Fluticasone/Vilanterol 200/25 BLST.W.DEV 1 PUFF INHALE (07:42)
[2021-11-09 07:55] LABS: Glucose, Whole Blood 93 mg/dL (60-115)
[2021-11-09] MEDS: 0.9 % Sodium Chloride Flush 3 ML SYRINGE IVFLUSH ×3 (08:07→20:39)
[2021-11-09] MEDS: Rivaroxaban 15 MG TABLET PO (08:08)
[2021-11-09] MEDS: carvediloL 12.5 MG TABLET PO ×2 (08:08→20:37)
[2021-11-09] MEDS: Magnesium Oxide 400 MG TABLET 800 MG PO (08:08)
[2021-11-09] MEDS: Atorvastatin Calcium 20 MG TABLET PO (08:08)
[2021-11-09] MEDS: predniSONE 20 MG TABLET PO (08:08)
[2021-11-09] MEDS: lisinopriL 5 MG TABLET PO (08:08)
[2021-11-09] MEDS: Gabapentin 600 MG TABLET 1200 MG PO ×2 (08:08→20:37)
--- NOTE | 2021-11-09 10:38 | HO.PM.IMPN ---
Subjective Subjective Date of Service: 11/11/21 Interval History: pneumonia Review of Systems sob seems improved Physical Exam Vital Signs: Vital Signs: Last Vital Signs Temp 97.3 F 11/09/21 07:20 Pulse 74 11/09/21 08:08 Resp 16 11/09/21 07:32 BP 111/66 11/09/21 08:08 Pulse Ox 99 11/09/21 07:20 Oxygen Flow Rate 3 10/31/21 22:53 BMI result Body Mass Index 21.0 General: AO X 2, no acute distress Resp:? CTA bilateral CVS: S1,S2,RRR GI: +BS, NT, no distention Skin: No rash Neuro:? motor grossly intact Psych: appropriate affect Objective Data Active Medications Acetaminophen (Acetaminophen 325 Mg Tablet) 650 mg PO Q6H PRN PRN Reason: Pain, Mild (Pain Scale 1-3) Last Admin: 11/04/21 20:21 Dose: 650 mg Documented by: ANN-MARIE Albuterol/Ipratropium (Albuterol/Iprat 2.5/0.5mg 3 Ml Ampul.Neb) 3 ml INHALE RQ4H WHILE AWAKE [facility] Last Admin: 11/09/21 07:31 Dose: 3 ml Documented by: JAXON Atorvastatin Calcium (Atorvastatin Calcium 20 Mg Tablet) 20 mg PO DAILY [facility] Last Admin: 11/09/21 08:08 Dose: 20 mg Documented by: ALEXIS Azithromycin (Azithromycin 500 Mg Tablet) 500 mg PO Q24H [facility] Last Admin: 11/08/21 21:20 Dose: 500 mg Documented by: ISRAEL Carvedilol (Carvedilol 12.5 Mg Tablet) 12.5 mg PO BID [facility]; Protocol Last Admin: 11/09/21 08:08 Dose: 12.5 mg Documented by: ALEXIS Cefuroxime Axetil (Cefuroxime Axetil 500 Mg Tablet) 500 mg PO Q12H [facility] Last Admin: 11/08/21 21:20 Dose: 500 mg Documented by: ISRAEL Dextrose (Dextrose 50 % 25 Gm/50 Ml Vial) 25 gm IVPUSH Q15M PRN; Protocol PRN Reason: per Hypoglycemia Standing Ord. Fluticasone/Vilanterol (Fluticasone/Vilanterol 200/25 Blst.W.Dev) 1 puff INHALE DAILY [facility] Last Admin: 11/09/21 07:42 Dose: 1 puff Documented by: JAXON Gabapentin (Gabapentin 600 Mg Tablet) 1,200 mg PO BID [facility] Last Admin: 11/09/21 08:08 Dose: 1,200 mg Documented by: ALEXIS Glucose (Glucose Gel 15 Gm Gel..Gram.) 15 gm PO Q15M PRN; Protocol PRN Reason: per Hypoglycemia Standing Ord. Insulin Human Lispro (Insulin Lispro 100 Unit/Ml 3 Ml Vial) 0 unit SUBCUT QIDACHS [facility]; Protocol Last Admin: 11/09/21 08:00 Dose: Not Given Documented by: ALEXIS Non-Admin Reason: No Insulin Coverage Lisinopril (Lisinopril 5 Mg Tablet) 5 mg PO DAILY [facility]; Protocol Last Admin: 11/09/21 08:08 Dose: 5 mg Documented by: ALEXIS Magnesium Oxide (Magnesium Oxide 400 Mg Tablet) 800 mg PO DAILY [facility] Last Admin: 11/09/21 08:08 Dose: 800 mg Documented by: ALEXIS Melatonin (Melatonin 3 Mg Tablet) 6 mg PO BEDTIME PRN PRN Reason: Insomnia Last Admin: 11/04/21 20:21 Dose: 6 mg Documented by: ANN-MARIE Prednisone (Prednisone 20 Mg Tablet) 20 mg PO DAILY [facility] Last Admin: 11/09/21 08:08 Dose: 20 mg Documented by: ALEXIS Rivaroxaban (Rivaroxaban 15 Mg Tablet) 15 mg PO DAILY [facility] Last Admin: 11/09/21 08:08 Dose: 15 mg Documented by: ALEXIS Senna (Sennosides 8.6 Mg Tablet) 17.2 mg PO BEDTIME PRN PRN Reason: Constipation Sodium Chloride (0.9 % Sodium Chloride Flush 3 Ml Syringe) 3 ml IVFLUSH QSHIFT [facility] Last Admin: 11/09/21 08:07 Dose: 3 ml Documented by: ALEXIS Labs CBC & Chem 7: 11/01/21 03:31 11/03/21 23:36 Labs: Laboratory Results - last 24 hr 11/08/21 11/08/21 11/08/21 11:24 16:17 20:23 POC Glucose 194 H 287 H 321 H 11/09/21 07:18 POC Glucose 93 Assessment and Plan (1) UTI (urinary tract infection): Status: Acute Assessment and Plan: 81-year-old female with a past medical history of hypertension, hyperlipidemia, diabetes, CAD, CHF with EF of 55%, paroxysmal AFib on Xarelto, COPD, PFO, sarcoidosis, history of ventricular tachycardia, vitamin-D deficiency presented to the hospital today with a chief complaint of generalized weakness.? 1.Generalized weakness:? Likely in the setting of UTI/pneumonia.?switched to po ceftin/azithro.? Supportive care.? Cultures negative thus for. 2.COPD, borderline hypoxia, tachy and high ddimer. CTA to rule PE v/q low probability 3.Paroxysmal AFib:? Patient on Xarelto; intially has tachycardia , improved -likely in setting of dehydration/UTI. 4.chronic diastolic CHF--euvolemic right now. 5.History of hypertension: Continue home carvedilol.? Hold lisinopril for now. 6.History of diabetes:? fs running 100-200range :Will hold home medications.? Insulin sliding scale adjusted sliding scale , avoid coverage below 200. Code status: Full code awiating placement Quality Stroke Does the patient have a stroke diagnosis?: No VTE Prior VTE?: No VTE Risk Level:: Medical - moderate - high VTE Device Contraindication: Treatment Not Indicated VTE Drug Contraindication: N/A - Med Ordered
[2021-11-09 11:31] LABS: Glucose, Whole Blood 209 mg/dL (60-115)
[2021-11-09] MEDS: Insulin Lispro 100 UNIT/ML 3 ML VIAL SUBCUT ×3 (12:16→20:38)
--- NOTE | 2021-11-09 12:29 | MHC.CM.PN ---
Addendum entered by Delilah Leroy 11/09/21 14:54: SON AND PATIENT AWARE THAT [facility] WAS OFFERING A BED AND WAS ONLY FACILITY OFFERING. PATIENT'S INSURANCE IS A [employer]ODUCT [employer] IS NOW UNABLE TO OFFER. CASE MANAGEMENT STILL MAKING ATTMEPTS AND LUCINA IS AWARE OF THE BARREIRS. HE HAS BEEN TOLD THAT PATIENT CANNOT GO TO [place] OR [place] Original Note: PATIENT ASKS THIS [employer] MAKER TO GIVE HER PURSE TO HER SON, LUCINA, SO THAT HE CAN PAY HER BILLS AND RENT. 2 RN IN ROOM TO VERIFY THAT PURSE WAS PLACED IN AN [facility] [employer] BAG AND TIED UP FOR DELIVERY TO FRONT LOBBY DESK.PATIENT'S SON'S NAME WRITTEN ON IDENTIFYING PAPER PLACED ONTO BAG.
--- NOTE | 2021-11-09 14:01 | MHC.CLN ---
F/U DIET=DIABETIC 2000 KCAL, NDD3. SKIN: STAGE II TO SACRUM AND EXCORIATED BILATERAL BUTTOCKS. INTAKE APPEARS 50-100%. CONTINUE GLUCERNA BID (474 KCAL, 20 G PROTEIN) TO PROMOTE WOUND HEALING. CONTINUE TO FOLLOW SKIN AND INTAKE.
[2021-11-09 16:42] LABS: Glucose, Whole Blood 335 mg/dL (60-115)
--- NOTE | 2021-11-09 16:45 | MHC.SL.SWA ---
Speech Pathologist Impression: Oral Phase Dysphagia Risk of Aspiration Due to: Medically Fragile History of Pneumonia Dysphasia Diet Status: Downgrade Liquid Consistency and Strategies for Safe Swallow: Liquid Intake Recommendation: Thin Liquid Intake Strategies: Small Sips Straws only with supervision to ensure small sips/no chugging Solid Food Consistency: Dietary Recommendations: Chopped/Advanced (NDD3) Additional Modifications to Solid Foods: Avoid hard, sticky, or crunchy foods. Oral Medication Intake: Whole with Puree Compensatory Strategies and Precautions to be Taken for Safe Swallow: Sitting Upright (90 deg) Small Bites and Sips Alternate Liquids/Solids Rate of Ingestion Change Avoid Specific Foods Supervision While Eating and Drinking for Safe Swallow: Total Supervision (1:1) Foods to Avoid: Patient is edentulous and has only bottom dentures. Recommend avoid tough, difficult to chew solids. Swallowing Recommended Treatments: Compens. Strategy Educat. Recommendation for Speech: Inpatient Speech Therapy Comment: Pt presents with delayed oral phase of swallow due to mastication, mild occasional delay of swallow on harder food consistencies. Pt had clinical s/s aspiration on chain sip of thin liquid (wet voice). Recommend DOWNGRADE diet to CHOPPED/ADVANCED (NDD3) and continue THIN LIQUIDS, but limit/supervise use of straw. PT will initially need total supervision during meals, as presents as occasionally impulsive, w/ monitor for signs of aspiration. CHICKEN PICKER to follow PT while in hospital to re-asses swallow, monitor toleration of diet, advance or modify diet as needed Frequency/Duration: M-F while PT admitted Date Range for Service Req: Timeline to reassess: Manager Asset Clinican/Clinical Fellow: No Supervisory Statement: I have reviewed and agree with the student/clinical fellow's documentation: N/A Speech Language Pathologist: May Figueroa M.A., CCC-CHICKEN PICKER
[2021-11-09 20:07] LABS: Glucose, Whole Blood 300 mg/dL (60-115)
[2021-11-09] MEDS: Azithromycin 500 MG TABLET PO (20:37)
[2021-11-10] VITALS (11 sets, daily range): BP systolic 117–137; BP diastolic 60–74; PULSE 75–102; RESP 16–20; TEMP 36.2–36.9; O2SAT 95–99
[2021-11-10] MEDS: Fluticasone/Vilanterol 200/25 BLST.W.DEV 1 PUFF INHALE (07:28)
[2021-11-10] MEDS: Albuterol/Iprat 2.5/0.5MG 3 ML AMPUL.NEB INHALE ×4 (07:28→19:50)
[2021-11-10 07:40] LABS: Glucose, Whole Blood 78 mg/dL (60-115)
[2021-11-10] MEDS: predniSONE 20 MG TABLET PO (07:54)
[2021-11-10] MEDS: carvediloL 12.5 MG TABLET PO ×2 (07:54→21:44)
[2021-11-10] MEDS: Rivaroxaban 15 MG TABLET PO (07:54)
[2021-11-10] MEDS: lisinopriL 5 MG TABLET PO (07:54)
[2021-11-10] MEDS: Gabapentin 600 MG TABLET 1200 MG PO ×2 (07:54→21:43)
[2021-11-10] MEDS: Magnesium Oxide 400 MG TABLET 800 MG PO (07:54)
[2021-11-10] MEDS: Atorvastatin Calcium 20 MG TABLET PO (07:54)
[2021-11-10] MEDS: 0.9 % Sodium Chloride Flush 3 ML SYRINGE IVFLUSH ×3 (07:55→21:44)
[2021-11-10] MEDS: Acetaminophen 325 MG TABLET 650 MG PO ×2 (10:00→21:43)
--- NOTE | 2021-11-10 10:13 | HO.PM.IMPN ---
Subjective Subjective Date of Service: 11/10/21 Interval History: F/u sob, weakness, uti, pna. seem fine. Unable to palce d/t unvaccinated status Review of Systems +sob +no fever Physical Exam Vital Signs: Vital Signs: Last Vital Signs Temp 98.2 F 11/10/21 07:21 Pulse 75 11/10/21 08:06 Resp 16 11/10/21 07:29 BP 137/74 11/10/21 07:21 Pulse Ox 98 11/10/21 07:21 Oxygen Flow Rate 3 10/31/21 22:53 BMI result Body Mass Index 21.0 Const: Other: General: AO X 2, no acute distress Resp: scattered wheezes CVS: S1,S2,RRR GI: +BS, NT, no distention Skin: No rash Neuro: motor grossly intact Psych: appropriate affect Objective Data Active Medications Acetaminophen (Acetaminophen 325 Mg Tablet) 650 mg PO Q6H PRN PRN Reason: Pain, Mild (Pain Scale 1-3) Last Admin: 11/10/21 10:00 Dose: 650 mg Documented by: GREGORY Albuterol/Ipratropium (Albuterol/Iprat 2.5/0.5mg 3 Ml Ampul.Neb) 3 ml INHALE RQ4H WHILE AWAKE [facility] [place] Last Admin: 11/10/21 07:28 Dose: 3 ml Documented by: JAXON Atorvastatin Calcium (Atorvastatin Calcium 20 Mg Tablet) 20 mg PO DAILY [facility] [place] Last Admin: 11/10/21 07:54 Dose: 20 mg Documented by: GREGORY Azithromycin (Azithromycin 500 Mg Tablet) 500 mg PO Q24H [facility] [place] Last Admin: 11/09/21 20:37 Dose: 500 mg Documented by: ISRAEL Carvedilol (Carvedilol 12.5 Mg Tablet) 12.5 mg PO BID [facility] [place]; Protocol Last Admin: 11/10/21 07:54 Dose: 12.5 mg Documented by: GREGORY Cefuroxime Axetil (Cefuroxime Axetil 500 Mg Tablet) 500 mg PO Q12H [facility] [place] Last Admin: 11/10/21 10:00 Dose: 500 mg Documented by: GREGORY Dextrose (Dextrose 50 % 25 Gm/50 Ml Vial) 25 gm IVPUSH Q15M PRN; Protocol PRN Reason: per Hypoglycemia Standing Ord. Fluticasone/Vilanterol (Fluticasone/Vilanterol 200/25 Blst.W.Dev) 1 puff INHALE DAILY [facility] [place] Last Admin: 11/10/21 07:28 Dose: 1 puff Documented by: JAXON Gabapentin (Gabapentin 600 Mg Tablet) 1,200 mg PO BID [facility] [place] Last Admin: 11/10/21 07:54 Dose: 1,200 mg Documented by: GREGORY Glucose (Glucose Gel 15 Gm Gel..Gram.) 15 gm PO Q15M PRN; Protocol PRN Reason: per Hypoglycemia Standing Ord. Insulin Human Lispro (Insulin Lispro 100 Unit/Ml 3 Ml Vial) 0 unit SUBCUT QIDACHS [facility] [place]; Protocol Last Admin: 11/10/21 07:47 Dose: Not Given Documented by: GREGORY Non-Admin Reason: No Insulin Coverage Lisinopril (Lisinopril 5 Mg Tablet) 5 mg PO DAILY [facility] [place]; Protocol Last Admin: 11/10/21 07:54 Dose: 5 mg Documented by: GREGORY Magnesium Oxide (Magnesium Oxide 400 Mg Tablet) 800 mg PO DAILY [facility] [place] Last Admin: 11/10/21 07:54 Dose: 800 mg Documented by: GREGORY Melatonin (Melatonin 3 Mg Tablet) 6 mg PO BEDTIME PRN PRN Reason: Insomnia Last Admin: 11/04/21 20:21 Dose: 6 mg Documented by: LUCILLEQC Prednisone (Prednisone 20 Mg Tablet) 20 mg PO DAILY [facility] [place] Last Admin: 11/10/21 07:54 Dose: 20 mg Documented by: GREGORY Rivaroxaban (Rivaroxaban 15 Mg Tablet) 15 mg PO DAILY [facility] [place] Last Admin: 11/10/21 07:54 Dose: 15 mg Documented by: GREGORY Senna (Sennosides 8.6 Mg Tablet) 17.2 mg PO BEDTIME PRN PRN Reason: Constipation Sodium Chloride (0.9 % Sodium Chloride Flush 3 Ml Syringe) 3 ml IVFLUSH QSHIFT [facility] [place] Last Admin: 11/10/21 07:55 Dose: 3 ml Documented by: GREGORY Labs CBC & Chem 7: 11/01/21 03:31 11/03/21 23:36 Labs: Laboratory Results - last 24 hr 11/09/21 11/09/21 11/09/21 11:06 15:35 19:05 POC Glucose 209 H 335 H 300 H 11/10/21 07:17 POC Glucose 78 Assessment and Plan (1) UTI (urinary tract infection): Status: Acute Assessment and Plan: 81-year-old female with a past medical history of hypertension, hyperlipidemia, diabetes, CAD, CHF with EF of 55%, paroxysmal AFib on Xarelto, COPD, PFO, sarcoidosis, history of ventricular tachycardia, vitamin-D deficiency presented to the hospital today with weakness.? #Generalized weakness:? Likely d/t UTI/pneumonia.? Supportive care.? Cultures negative thus for. #UTI negaive cultues has been on Ceftriaxone since 11/01 and Ceftin since 11/06--DC Abx #? PNA--treated with Ceftriaxone since 11/01 and Ceftin since 11/06--DC Abx #.COPD, no exacerbation at moment. Negative VQ scan, has been on Azithro since 11/01. DC #Paroxysmal AFib:? rate controlled with Coreg. Continue Xarelto #.chronic diastolic CHF--euvolemic right now. #History of hypertension: Continue Lisinopril and Coreg #History of diabetes:SSI Code status: Full code awiating placement, difficult placement due to unvaccinated status. Quality Stroke Does the patient have a stroke diagnosis?: No VTE Prior VTE?: No VTE Risk Level:: Medical - moderate - high VTE Device Contraindication: Treatment Not Indicated VTE Drug Contraindication: N/A - Med Ordered
--- NOTE | 2021-11-10 10:23 | PC.NURSE ---
Skin/wound assessment completed. Patient has Incontinent skin damage to buttocks and monster area with stage 2 presuure sore on buttocks. Triad applied to all areas stage 2 covered with foam dressing. No other skin issues noted at this time.
[2021-11-10 11:28] LABS: Glucose, Whole Blood 254 mg/dL (60-115)
[2021-11-10] MEDS: Insulin Lispro 100 UNIT/ML 3 ML VIAL SUBCUT ×3 (11:40→21:44)
[2021-11-10 16:29] LABS: Glucose, Whole Blood 333 mg/dL (60-115)
--- NOTE | 2021-11-10 17:24 | MHC.SL.SWA ---
Speech Pathologist Impression: Oral Phase Dysphagia Risk of Aspiration Due to: Medically Fragile History of Pneumonia Dysphasia Diet Status: Downgrade Liquid Consistency and Strategies for Safe Swallow: Liquid Intake Recommendation: Thin Liquid Intake Strategies: Small Sips Solid Food Consistency: Dietary Recommendations: Chopped/Advanced (NDD3) Additional Modifications to Solid Foods: Recommend CHOPPED/ADVANCED (NDD3) solids and THIN liquids, with pills whole in liquid or puree. Patient tolerated liquid by straw this date, and displayed safer eating habits, taking small bites and sips, taking individual sips. Recommend continue total supervision given history of impulsivity during meals and chugging of liquids via straw. Continue aspiration precautions. DIGITAL MEDIA BUYER will continue to follow. Oral Medication Intake: Whole with Puree Compensatory Strategies and Precautions to be Taken for Safe Swallow: Sitting Upright (90 deg) Small Bites and Sips Alternate Liquids/Solids Rate of Ingestion Change Avoid Specific Foods Supervision While Eating and Drinking for Safe Swallow: Total Supervision (1:1) Foods to Avoid: Patient is edentulous and has only bottom dentures. Recommend avoid tough, difficult to chew solids. Swallowing Recommended Treatments: Compens. Strategy Educat. Recommendation for Speech: Inpatient Speech Therapy Comment: Pt presents with delayed oral phase of swallow due to mastication, mild occasional delay of swallow on harder food consistencies. Patient seen at bedside this morning and was sleeping but easily roused. Pt reported that she dislikes water and hasn't had water for many years. Pt was offered sips of diet Kusum Abigail by straw w/ encouragement to take small sips. Pt managed bolus well, produced timely swallow w/mildly reduced laryngeal elevations. Patient tolerated several trials of puree solids with good oral clearance and trace lingual residue which cleared after liquid wash. Pt tolerating diet of CHOPPED/ADVANCED (NDD3) and THIN LIQUIDS, w/ limit/supervision use of straw. PT continues to need supervision during meals, as presents as occasionally impulsive, w/ monitor for signs of aspiration. DIGITAL MEDIA BUYER to follow PT while in hospital to re-asses swallow, monitor toleration of diet, advance or modify diet as needed Frequency/Duration: M-F while PT admitted Date Range for Service Req: Timeline to reassess: Banking Management Consulting Manager Clinican/Clinical Fellow: No Supervisory Statement: I have reviewed and agree with the student/clinical fellow's documentation: N/A Speech Language Pathologist: Lorna Enriquez M.A., [facility]-DIGITAL MEDIA BUYER
[2021-11-10 20:13] LABS: Glucose, Whole Blood 351 mg/dL (60-115)
[2021-11-10] MEDS: Melatonin 3 MG TABLET 6 MG PO (21:43)
[2021-11-10] MEDS: Azithromycin 500 MG TABLET PO (21:44)
[2021-11-11] VITALS (10 sets, daily range): BP systolic 106–129; BP diastolic 55–78; PULSE 63–104; RESP 16–22; TEMP 36.4–36.8; O2SAT 93–98
--- NOTE | 2021-11-11 00:18 | PC.NURSE ---
pt's bedtime POC on 11/10/20 was 351, 10 units of humalog given per sliding scale. Dr. Asad yee.
[2021-11-11] MEDS: 0.9 % Sodium Chloride Flush 3 ML SYRINGE IVFLUSH ×2 (07:21→17:27)
[2021-11-11 07:48] LABS: Glucose, Whole Blood 92 mg/dL (60-115)
[2021-11-11] MEDS: Magnesium Oxide 400 MG TABLET 800 MG PO (09:45)
[2021-11-11] MEDS: Gabapentin 600 MG TABLET 1200 MG PO ×2 (09:45→22:21)
[2021-11-11] MEDS: predniSONE 20 MG TABLET PO (09:45)
[2021-11-11] MEDS: lisinopriL 5 MG TABLET PO (09:46)
[2021-11-11] MEDS: carvediloL 12.5 MG TABLET PO ×2 (09:46→22:21)
[2021-11-11] MEDS: Rivaroxaban 15 MG TABLET PO (09:46)
[2021-11-11] MEDS: Atorvastatin Calcium 20 MG TABLET PO (09:46)
--- NOTE | 2021-11-11 10:08 | HO.PM.IMPN ---
Subjective Subjective Date of Service: 11/11/21 Interval History: F/u sob, weakness, uti, pna. doing well, Unable to palce d/t unvaccinated status Review of Systems +sob +no fever Physical Exam Vital Signs: Vital Signs: Last Vital Signs Temp 97.6 F 11/11/21 07:25 Pulse 73 11/11/21 07:25 Resp 18 11/11/21 07:25 BP 121/78 11/11/21 07:25 Pulse Ox 98 11/11/21 07:25 Oxygen Flow Rate 3 10/31/21 22:53 BMI result Body Mass Index 21.0 Const: Other: General: AO X 2, no acute distress Resp: scattered wheezes CVS: S1,S2,RRR GI: +BS, NT, no distention Skin: No rash Neuro: motor grossly intact Psych: appropriate affect Objective Data Active Medications Acetaminophen (Acetaminophen 325 Mg Tablet) 650 mg PO Q6H PRN PRN Reason: Pain, Mild (Pain Scale 1-3) Last Admin: 11/10/21 21:43 Dose: 650 mg Documented by: ANN-MARIE Albuterol/Ipratropium (Albuterol/Iprat 2.5/0.5mg 3 Ml Ampul.Neb) 3 ml INHALE RQ4H WHILE AWAKE [facility] Last Admin: 11/11/21 08:03 Dose: Not Given Documented by: DALE Non-Admin Reason: Patient Refused Atorvastatin Calcium (Atorvastatin Calcium 20 Mg Tablet) 20 mg PO DAILY [facility] Last Admin: 11/11/21 09:46 Dose: 20 mg Documented by: ENDY Azithromycin (Azithromycin 500 Mg Tablet) 500 mg PO Q24H [facility] Last Admin: 11/10/21 21:44 Dose: 500 mg Documented by: ANN-MARIE Carvedilol (Carvedilol 12.5 Mg Tablet) 12.5 mg PO BID [facility]; Protocol Last Admin: 11/11/21 09:46 Dose: 12.5 mg Documented by: ENDY Cefuroxime Axetil (Cefuroxime Axetil 500 Mg Tablet) 500 mg PO Q12H [facility] Last Admin: 11/10/21 21:43 Dose: 500 mg Documented by: ANN-MARIE Dextrose (Dextrose 50 % 25 Gm/50 Ml Vial) 25 gm IVPUSH Q15M PRN; Protocol PRN Reason: per Hypoglycemia Standing Ord. Fluticasone/Vilanterol (Fluticasone/Vilanterol 200/25 Blst.W.Dev) 1 puff INHALE DAILY [facility] Last Admin: 11/11/21 08:03 Dose: Not Given Documented by: DALE Non-Admin Reason: Patient Refused Gabapentin (Gabapentin 600 Mg Tablet) 1,200 mg PO BID [facility] Last Admin: 11/11/21 09:45 Dose: 1,200 mg Documented by: ENDY Glucose (Glucose Gel 15 Gm Gel..Gram.) 15 gm PO Q15M PRN; Protocol PRN Reason: per Hypoglycemia Standing Ord. Insulin Human Lispro (Insulin Lispro 100 Unit/Ml 3 Ml Vial) 0 unit SUBCUT QIDACHS [facility]; Protocol Last Admin: 11/11/21 07:24 Dose: Not Given Documented by: JOSE J Non-Admin Reason: No Insulin Coverage Lisinopril (Lisinopril 5 Mg Tablet) 5 mg PO DAILY [facility]; Protocol Last Admin: 11/11/21 09:46 Dose: 5 mg Documented by: ENDY Magnesium Oxide (Magnesium Oxide 400 Mg Tablet) 800 mg PO DAILY [facility] Last Admin: 11/11/21 09:45 Dose: 800 mg Documented by: ENDY Melatonin (Melatonin 3 Mg Tablet) 6 mg PO BEDTIME PRN PRN Reason: Insomnia Last Admin: 11/10/21 21:43 Dose: 6 mg Documented by: ANN-MARIE Prednisone (Prednisone 20 Mg Tablet) 20 mg PO DAILY [facility] Last Admin: 11/11/21 09:45 Dose: 20 mg Documented by: ENDY Rivaroxaban (Rivaroxaban 15 Mg Tablet) 15 mg PO DAILY [facility] Last Admin: 11/11/21 09:46 Dose: 15 mg Documented by: ENDY Senna (Sennosides 8.6 Mg Tablet) 17.2 mg PO BEDTIME PRN PRN Reason: Constipation Sodium Chloride (0.9 % Sodium Chloride Flush 3 Ml Syringe) 3 ml IVFLUSH QSHIFT [facility] Last Admin: 11/11/21 07:21 Dose: 3 ml Documented by: JOSE J Labs CBC & Chem 7: 11/01/21 03:31 11/03/21 23:36 Labs: Laboratory Results - last 24 hr 11/10/21 11/10/2122 11:10 15:23 19:14 POC Glucose 254 H 333 H 351 H* 11/11/21 07:23 POC Glucose 92 Assessment and Plan (1) UTI (urinary tract infection): Status: Acute Assessment and Plan: 81-year-old female with a past medical history of hypertension, hyperlipidemia, diabetes, CAD, CHF with EF of 55%, paroxysmal AFib on Xarelto, COPD, PFO, sarcoidosis, history of ventricular tachycardia, vitamin-D deficiency presented to the hospital today with weakness.? #Generalized weakness:? Likely d/t UTI/pneumonia.? Supportive care.? Cultures negative thus for. #UTI negaive cultues has been on Ceftriaxone since 11/01 and Ceftin since 11/06--DC Abx #? PNA--treated with Ceftriaxone since 11/01 and Ceftin since 11/06--completed Abx #.COPD, no exacerbation at moment. Negative VQ scan, has been on Azithro since 11/01. DC #Paroxysmal AFib:? rate controlled with Coreg. Continue Xarelto #.chronic diastolic CHF--euvolemic right now. #History of hypertension: Continue Lisinopril and Coreg #History of diabetes:SSI Code status: Full code awiating placement, difficult placement due to unvaccinated status. Quality Stroke Does the patient have a stroke diagnosis?: No VTE Prior VTE?: No VTE Risk Level:: Medical - moderate - high VTE Device Contraindication: Treatment Not Indicated VTE Drug Contraindication: N/A - Med Ordered
--- NOTE | 2021-11-11 10:11 | P.CDIC_ITS ---
CDI Concurrent Query Documentation Clarification: PHYSICIAN'S DOCUMENTATION REQUEST Date of Query: 11/11/21 1011 Patient Name: Jaja Gillespie Admit Date: 11/01/21 Dear Doctor, A review of the medical record indicates additional documentation may be indicated. Please review below and update the documentation accordingly. Risk Factors/Clinical Indicators/Treatments Wound care assessment 1/-Pressure injury Stage II sacrum. Foam dressing, Triad. Based on the above, could you please provide, in the Progress Notes, further information regarding the ulcer/wound: * For a non-pressure ulcer: * Limited to the breakdown of skin * Other * Unable to determine * If a pressure ulcer, please also include the stage* of the ulcer: * Stage 1 * Stage 2 * Stage 3 * Unable to determine *Source: National Pressure Ulcer Advisory Panel (NPUAP) Use of terms such as suspected, likely, concern for, or probable (associated with a specific diagnosis that is being evaluated, monitored, or treated as if it exists) are acceptable and can be coded in the inpatient setting, when documented at the time of discharge. Thank you, Shiela Fowler [facility], CDIS Extension: [phone] Please use your independent medical judgment in providing your response. THIS QUERY IS PART OF THE PERMANENT MEDICAL RECORD Provider Response: Other Other Diagnosis: state 2 pressure ulcer
--- NOTE | 2021-11-11 10:12 | MHC.CLN ---
F/U DIET=DIABETIC 2000 KCAL, NDD3. SKIN: STAGE II TO SACRUM; EXCORIATED BILATERAL BUTTOCKS FROM INCONTINENCE. INTAKE APPEARS 50-100%. CONTINUE GLUCERNA BID (474 KCAL, 20 G PROTEIN) TO PROMOTE WOUND HEALING. CONTINUE TO FOLLOW SKIN AND INTAKE.
--- NOTE | 2021-11-11 10:16 | P.CDIC_ITS ---
CDI Concurrent Query Documentation Clarification: PHYSICIAN'S DOCUMENTATION REQUEST Date of Query: 11/11/21 1016 Patient Name: Jaja Gillespie Admit Date: 11/01/21 Dear Doctor, A review of the medical record indicates additional documentation may be indicated. Please review below and update the documentation accordingly. Clinical Indicators: Risk Factors/Clinical Indicators/Treatments Nutrition/Wound assessment: Stage II pressure injury/wound to bilateral buttocks/thighs. Foam dressing, adding Glucerna Bid to promote wound healing. Based on the above, could you please provide, in the Progress Notes, further information regarding the ulcer/wound: * For a non-pressure ulcer/wound: * Limited to the breakdown of skin * Other * Unable to determine * If a pressure ulcer, please also include the stage* of the ulcer: * Stage 1 * Stage 2 * Unable to determine *Source: National Pressure Ulcer Advisory Panel (NPUAP) Use of terms such as suspected, likely, concern for, or probable (associated with a specific diagnosis that is being evaluated, monitored, or treated as if it exists) are acceptable and can be coded in the inpatient setting, when documented at the time of discharge. Thank you, Shiela Fowler [facility], CDIS Extension: [phone] Please use your independent medical judgment in providing your response. THIS QUERY IS PART OF THE PERMANENT MEDICAL RECORD Provider Response: Other Other Diagnosis: stage 2 pressure ulcer
[2021-11-11] MEDS: Albuterol/Iprat 2.5/0.5MG 3 ML AMPUL.NEB INHALE ×3 (11:32→20:02)
[2021-11-11 11:42] LABS: Glucose, Whole Blood 157 mg/dL (60-115)
[2021-11-11 16:26] LABS: Glucose, Whole Blood 333 mg/dL (60-115)
[2021-11-11] MEDS: Insulin Lispro 100 UNIT/ML 3 ML VIAL SUBCUT ×2 (17:27→22:22)
[2021-11-11 20:06] LABS: Glucose, Whole Blood 363 mg/dL (60-115)
[2021-11-11] MEDS: Azithromycin 500 MG TABLET PO (22:21)
[2021-11-12] VITALS (8 sets, daily range): BP systolic 108–142; BP diastolic 54–75; PULSE 18–105; RESP 16–20; TEMP 36.2–36.8; O2SAT 91–97
[2021-11-12] MEDS: 0.9 % Sodium Chloride Flush 3 ML SYRINGE IVFLUSH ×3 (01:39→17:30)
[2021-11-12 07:54] LABS: Glucose, Whole Blood 189 mg/dL (60-115)
[2021-11-12] MEDS: carvediloL 12.5 MG TABLET PO ×2 (08:06→21:07)
[2021-11-12] MEDS: predniSONE 20 MG TABLET PO (08:06)
[2021-11-12] MEDS: Gabapentin 600 MG TABLET 1200 MG PO ×2 (08:06→21:07)
[2021-11-12] MEDS: Magnesium Oxide 400 MG TABLET 800 MG PO (08:06)
[2021-11-12] MEDS: Rivaroxaban 15 MG TABLET PO (08:06)
[2021-11-12] MEDS: Atorvastatin Calcium 20 MG TABLET PO (08:06)
[2021-11-12] MEDS: lisinopriL 5 MG TABLET PO (08:07)
--- NOTE | 2021-11-12 10:28 | HO.PM.IMPN ---
Subjective Subjective Date of Service: 11/12/21 Interval History: F/u sob, weakness, uti, pna. doing well no new issues, Unable to palce d/t unvaccinated status Review of Systems +sob +no fever Physical Exam Vital Signs: Vital Signs: Last Vital Signs Temp 97.2 F 11/12/21 07:25 Pulse 86 11/12/21 07:25 Resp 18 11/12/21 07:25 BP 136/67 11/12/21 07:25 Pulse Ox 97 11/12/21 07:25 Oxygen Flow Rate 3 10/31/21 22:53 BMI result Body Mass Index 21.0 Const: Other: General: AO X 2, no acute distress Resp: scattered wheezes CVS: S1,S2,RRR GI: +BS, NT, no distention Skin: No rash, Stage II pressure injury/wound to bilateral buttocks/thigh Neuro: motor grossly intact Psych: appropriate affect Objective Data Active Medications Acetaminophen (Acetaminophen 325 Mg Tablet) 650 mg PO Q6H PRN PRN Reason: Pain, Mild (Pain Scale 1-3) Last Admin: 11/10/21 21:43 Dose: 650 mg Documented by: ANN-MARIE Albuterol/Ipratropium (Albuterol/Iprat 2.5/0.5mg 3 Ml Ampul.Neb) 3 ml INHALE RQ4H WHILE AWAKE [facility] [place] Last Admin: 11/12/21 08:15 Dose: Not Given Documented by: DALE Non-Admin Reason: Patient Refused Atorvastatin Calcium (Atorvastatin Calcium 20 Mg Tablet) 20 mg PO DAILY [facility] [place] Last Admin: 11/12/21 08:06 Dose: 20 mg Documented by: ROZ Azithromycin (Azithromycin 500 Mg Tablet) 500 mg PO Q24H [facility] Last Admin: 11/11/21 22:21 Dose: 500 mg Documented by: VICTORINA Carvedilol (Carvedilol 12.5 Mg Tablet) 12.5 mg PO BID [facility] [place]; Protocol Last Admin: 11/12/21 08:06 Dose: 12.5 mg Documented by: ROZ Cefuroxime Axetil (Cefuroxime Axetil 500 Mg Tablet) 500 mg PO Q12H [facility] [place] Last Admin: 11/12/21 08:07 Dose: 500 mg Documented by: ROZ Dextrose (Dextrose 50 % 25 Gm/50 Ml Vial) 25 gm IVPUSH Q15M PRN; Protocol PRN Reason: per Hypoglycemia Standing Ord. Fluticasone/Vilanterol (Fluticasone/Vilanterol 200/25 Blst.W.Dev) 1 puff INHALE DAILY [facility] [place] Last Admin: 11/12/21 08:16 Dose: Not Given Documented by: DALE Non-Admin Reason: Patient Refused Gabapentin (Gabapentin 600 Mg Tablet) 1,200 mg PO BID [facility] [place] Last Admin: 11/12/21 08:06 Dose: 1,200 mg Documented by: ROZ Glucose (Glucose Gel 15 Gm Gel..Gram.) 15 gm PO Q15M PRN; Protocol PRN Reason: per Hypoglycemia Standing Ord. Insulin Human Lispro (Insulin Lispro 100 Unit/Ml 3 Ml Vial) 0 unit SUBCUT QIDACHS [facility] [place]; Protocol Last Admin: 11/12/21 08:05 Dose: Not Given Documented by: ROZ Non-Admin Reason: No Insulin Coverage Lisinopril (Lisinopril 5 Mg Tablet) 5 mg PO DAILY [facility] [place]; Protocol Last Admin: 11/12/21 08:07 Dose: 5 mg Documented by: ROZ Magnesium Oxide (Magnesium Oxide 400 Mg Tablet) 800 mg PO DAILY [facility] [place] Last Admin: 11/12/21 08:06 Dose: 800 mg Documented by: ROZ Melatonin (Melatonin 3 Mg Tablet) 6 mg PO BEDTIME PRN PRN Reason: Insomnia Last Admin: 11/10/21 21:43 Dose: 6 mg Documented by: ANN-MARIE Prednisone (Prednisone 20 Mg Tablet) 20 mg PO DAILY [facility] [place] Last Admin: 11/12/21 08:06 Dose: 20 mg Documented by: ROZ Rivaroxaban (Rivaroxaban 15 Mg Tablet) 15 mg PO DAILY [facility] [place] Last Admin: 11/12/21 08:06 Dose: 15 mg Documented by: ROZ Senna (Sennosides 8.6 Mg Tablet) 17.2 mg PO BEDTIME PRN PRN Reason: Constipation Sodium Chloride (0.9 % Sodium Chloride Flush 3 Ml Syringe) 3 ml IVFLUSH QSHIFT [facility] [place] Last Admin: 11/12/21 08:07 Dose: 3 ml Documented by: ROZ Labs CBC & Chem 7: 11/01/21 03:31 11/03/21 23:36 Labs: Laboratory Results - last 24 hr 11/11/21 11/11/21 11/11/21 11:11 16:19 20:02 POC Glucose 157 H 333 H 363 H* 11/12/21 07:26 POC Glucose 189 H Assessment and Plan (1) UTI (urinary tract infection): Status: Acute Assessment and Plan: 81-year-old female with a past medical history of hypertension, hyperlipidemia, diabetes, CAD, CHF with EF of 55%, paroxysmal AFib on Xarelto, COPD, PFO, sarcoidosis, history of ventricular tachycardia, vitamin-D deficiency presented to the hospital today with weakness.? #Generalized weakness:? Likely d/t UTI/pneumonia.? Supportive care.? Cultures negative thus for. #UTI negaive cultues has been on Ceftriaxone since 11/01 and Ceftin since 11/06--DC Abx #? PNA--treated with Ceftriaxone since 11/01 and Ceftin since 11/06--completed Abx #.COPD, no exacerbation at moment. Negative VQ scan, has been on Azithro since 11/01. DC #Paroxysmal AFib:? rate controlled with Coreg. Continue Xarelto #.chronic diastolic CHF--euvolemic right now. #History of hypertension: Continue Lisinopril and Coreg #History of diabetes:SSI # stage 2 pressure ulcer of sacral area--apply triad Code status: Full code awiating placement, difficult placement due to unvaccinated status. Quality Stroke Does the patient have a stroke diagnosis?: No VTE Prior VTE?: No VTE Risk Level:: Medical - moderate - high VTE Device Contraindication: Treatment Not Indicated VTE Drug Contraindication: N/A - Med Ordered
[2021-11-12] MEDS: Albuterol/Iprat 2.5/0.5MG 3 ML AMPUL.NEB INHALE ×2 (11:35→20:45)
[2021-11-12 11:45] LABS: Glucose, Whole Blood 244 mg/dL (60-115)
[2021-11-12] MEDS: Insulin Lispro 100 UNIT/ML 3 ML VIAL SUBCUT ×3 (11:51→21:07)
--- NOTE | 2021-11-12 12:10 | MHC.CM.PN ---
REFERRAL UPDATED, CM CALLED SEVERAL SNF'S THAT DID NOT RESPOND VIA [facility] INCLUDING [facility], [facility] AND [facility], NO ANSWERS AT ANY FACILITY, MESSAGES LEFT W/CM CONTACT INFO, CM WILL CONT TO SEEK PLACEMENT.
[2021-11-12 16:31] LABS: Glucose, Whole Blood 320 mg/dL (60-115)
--- NOTE | 2021-11-12 18:51 | PC.NURSE ---
P IV outdated,leaking I removed,Dr. Cleary notified E ok to keep IV out
[2021-11-12 20:10] LABS: Glucose, Whole Blood 311 mg/dL (60-115)
[2021-11-12] MEDS: Azithromycin 500 MG TABLET PO (21:08)
[2021-11-13] VITALS (8 sets, daily range): BP systolic 114–145; BP diastolic 56–74; PULSE 81–106; RESP 16–18; TEMP 36.3–36.6; O2SAT 95–100
[2021-11-13 07:41] LABS: Glucose, Whole Blood 84 mg/dL (60-115)
[2021-11-13] MEDS: Albuterol/Iprat 2.5/0.5MG 3 ML AMPUL.NEB INHALE ×2 (07:48→11:44)
[2021-11-13] MEDS: Fluticasone/Vilanterol 200/25 BLST.W.DEV 1 PUFF INHALE (07:48)
[2021-11-13] MEDS: Magnesium Oxide 400 MG TABLET 800 MG PO (08:54)
[2021-11-13] MEDS: Gabapentin 600 MG TABLET 1200 MG PO ×2 (08:55→20:35)
[2021-11-13] MEDS: Atorvastatin Calcium 20 MG TABLET PO (08:55)
[2021-11-13] MEDS: carvediloL 12.5 MG TABLET PO ×2 (08:56→20:36)
[2021-11-13] MEDS: Rivaroxaban 15 MG TABLET PO (08:56)
[2021-11-13] MEDS: predniSONE 20 MG TABLET PO (08:56)
[2021-11-13] MEDS: lisinopriL 5 MG TABLET PO (08:57)
--- NOTE | 2021-11-13 09:24 | HO.PM.IMPN ---
Subjective Subjective Date of Service: 11/13/21 Interval History: F/u sob, weakness, uti, pna. doing well no new issues overnight, Unable to palce d/t unvaccinated status-- Review of Systems +sob +no fever Physical Exam Vital Signs: Vital Signs: Last Vital Signs Temp 97.5 F 11/13/21 07:24 Pulse 81 11/13/21 07:49 Resp 18 11/13/21 07:49 BP 142/74 H 11/13/21 07:24 Pulse Ox 100 11/13/21 07:24 Oxygen Flow Rate 3 10/31/21 22:53 BMI result Body Mass Index 21.0 Const: Other: General: AO X 2, no acute distress Resp: scattered wheezes CVS: S1,S2,RRR GI: +BS, NT, no distention Skin: No rash, Stage II pressure injury/wound to bilateral buttocks/thigh Neuro: motor grossly intact Psych: appropriate affect Objective Data Active Medications Acetaminophen (Acetaminophen 325 Mg Tablet) 650 mg PO Q6H PRN PRN Reason: Pain, Mild (Pain Scale 1-3) Last Admin: 11/10/21 21:43 Dose: 650 mg Documented by: ANN-MARIE Albuterol/Ipratropium (Albuterol/Iprat 2.5/0.5mg 3 Ml Ampul.Neb) 3 ml INHALE RQ4H WHILE AWAKE REPLACED BY [facility] Last Admin: 11/13/21 07:48 Dose: 3 ml Documented by: VIANCA Atorvastatin Calcium (Atorvastatin Calcium 20 Mg Tablet) 20 mg PO DAILY REPLACED BY [facility] Last Admin: 11/13/21 08:55 Dose: 20 mg Documented by: GRIFFIN Azithromycin (Azithromycin 500 Mg Tablet) 500 mg PO Q24H REPLACED BY [facility] Last Admin: 11/12/21 21:08 Dose: 500 mg Documented by: VICTORINA Carvedilol (Carvedilol 12.5 Mg Tablet) 12.5 mg PO BID REPLACED BY [facility]; Protocol Last Admin: 11/13/21 08:56 Dose: 12.5 mg Documented by: GRIFFIN Cefuroxime Axetil (Cefuroxime Axetil 500 Mg Tablet) 500 mg PO Q12H REPLACED BY [facility] Last Admin: 11/12/21 21:07 Dose: 500 mg Documented by: VICTORINA Dextrose (Dextrose 50 % 25 Gm/50 Ml Vial) 25 gm IVPUSH Q15M PRN; Protocol PRN Reason: per Hypoglycemia Standing Ord. Fluticasone/Vilanterol (Fluticasone/Vilanterol 200/25 Blst.W.Dev) 1 puff INHALE DAILY REPLACED BY [facility] Last Admin: 11/13/21 07:48 Dose: 1 puff Documented by: VIANCA Gabapentin (Gabapentin 600 Mg Tablet) 1,200 mg PO BID REPLACED BY [facility] Last Admin: 11/13/21 08:55 Dose: 1,200 mg Documented by: GRIFFIN Glucose (Glucose Gel 15 Gm Gel..Gram.) 15 gm PO Q15M PRN; Protocol PRN Reason: per Hypoglycemia Standing Ord. Insulin Human Lispro (Insulin Lispro 100 Unit/Ml 3 Ml Vial) 0 unit SUBCUT QIDACHS REPLACED BY [facility]; Protocol Last Admin: 11/13/21 08:57 Dose: Not Given Documented by: GRIFFIN Non-Admin Reason: No Insulin Coverage Lisinopril (Lisinopril 5 Mg Tablet) 5 mg PO DAILY REPLACED BY [facility]; Protocol Last Admin: 11/13/21 08:57 Dose: 5 mg Documented by: GRIFFIN Magnesium Oxide (Magnesium Oxide 400 Mg Tablet) 800 mg PO DAILY REPLACED BY [facility] Last Admin: 11/13/21 08:54 Dose: 800 mg Documented by: GRIFFIN Melatonin (Melatonin 3 Mg Tablet) 6 mg PO BEDTIME PRN PRN Reason: Insomnia Last Admin: 11/10/21 21:43 Dose: 6 mg Documented by: ANN-MARIE Prednisone (Prednisone 20 Mg Tablet) 20 mg PO DAILY REPLACED BY [facility] Last Admin: 11/13/21 08:56 Dose: 20 mg Documented by: GRIFFIN Rivaroxaban (Rivaroxaban 15 Mg Tablet) 15 mg PO DAILY REPLACED BY [facility] Last Admin: 11/13/21 08:56 Dose: 15 mg Documented by: GRIFFIN Senna (Sennosides 8.6 Mg Tablet) 17.2 mg PO BEDTIME PRN PRN Reason: Constipation Sodium Chloride (0.9 % Sodium Chloride Flush 3 Ml Syringe) 3 ml IVFLUSH QSHIFT REPLACED BY [facility] Last Admin: 11/13/21 08:57 Dose: 3 ml Documented by: GRIFFIN Labs CBC & Chem 7: 11/01/21 03:31 11/03/21 23:36 Labs: Laboratory Results - last 24 hr 11/12/21 11/12/21 11/12/21 11:38 15:46 19:35 POC Glucose 244 H 320 H 311 H 11/13/21 07:23 POC Glucose 84 Assessment and Plan (1) UTI (urinary tract infection): Status: Acute Assessment and Plan: 81-year-old female with a past medical history of hypertension, hyperlipidemia, diabetes, CAD, CHF with EF of 55%, paroxysmal AFib on Xarelto, COPD, PFO, sarcoidosis, history of ventricular tachycardia, vitamin-D deficiency presented to the hospital today with weakness.? No change in care today #Generalized weakness:? Likely d/t UTI/pneumonia.? Supportive care.? Cultures negative thus for. #UTI negaive cultues has been on Ceftriaxone since 11/01 and Ceftin since 11/06--DC Abx #? PNA--treated with Ceftriaxone since 11/01 and Ceftin since 11/06--completed Abx #.COPD, no exacerbation at moment. Negative VQ scan, has been on Azithro since 11/01. DC #Paroxysmal AFib:? rate controlled with Coreg. Continue Xarelto #.chronic diastolic CHF--euvolemic right now. #History of hypertension: Continue Lisinopril and Coreg #History of diabetes:SSI # stage 2 pressure ulcer of sacral area--apply triad Code status: Full code awiating placement, difficult placement due to unvaccinated status. Quality Stroke Does the patient have a stroke diagnosis?: No VTE Prior VTE?: No VTE Risk Level:: Medical - moderate - high VTE Device Contraindication: Treatment Not Indicated VTE Drug Contraindication: N/A - Med Ordered
--- NOTE | 2021-11-13 09:48 | MHC.CLN ---
F/U DIET=DIABETIC 2000 KCAL, NDD3. SKIN: STAGE II TO SACRUM; EXCORIATED BILATERAL BUTTOCKS FROM INCONTINENCE. INTAKE APPEARS 50-100%, WITH MOST 75-100%. CONTINUE GLUCERNA BID (474 KCAL, 20 G PROTEIN) TO PROMOTE WOUND HEALING. POC GLUCOSE 11/127=[phone]. MEDS INCLUDE HUMALOG AND PREDNISONE. RD TO FOLLOW WEEKLY. CONTINUE TO FOLLOW SKIN AND INTAKE.
--- NOTE | 2021-11-13 11:40 | MHC.CM.PN ---
CM CONTACTED PT'S SON/HCP LUCINA AT 11:32AM [phone], LUCINA AWARE WE HAVE BEEN UNABLE TO PLACE PT D/T VACCINE STATUS, LUCINA REPORTS THEY ARE WORKING ON GETTING A NEW APT FOR PT AND HCP/BROTHER JONES MELANIA , LUCINA REPORTED JONES WOULD NOT BE AVAILABLE TO STAY W/PT UNITL TOMORROW SO WE WILL PLAN FOR D/C TOMORROW W/[facility] FOR SN/HOME PT, REFERRALS PLACED FOR [facility].
[2021-11-13 11:46] LABS: Glucose, Whole Blood 196 mg/dL (60-115)
[2021-11-13 15:48] LABS: Glucose, Whole Blood 370 mg/dL (60-115)
[2021-11-13] MEDS: Insulin Lispro 100 UNIT/ML 3 ML VIAL SUBCUT ×2 (16:19→20:36)
[2021-11-13 20:17] LABS: Glucose, Whole Blood 244 mg/dL (60-115)
[2021-11-13] MEDS: Azithromycin 500 MG TABLET PO (20:35)
[2021-11-14] VITALS: BP 127/66; PULSE 91; RESP 18; TEMP 36.4; O2SAT 98
[2021-11-14 03:38] VITALS: BP 144/70; PULSE 89; RESP 18; TEMP 36.1; O2SAT 100
[2021-11-14 07:34] VITALS: BP 149/79; PULSE 78; RESP 20; TEMP 36.3; O2SAT 97
[2021-11-14 08:11] LABS: Glucose, Whole Blood 110 mg/dL (60-115)
[2021-11-14] MEDS: carvediloL 12.5 MG TABLET PO ×2 (08:59→20:46)
[2021-11-14] MEDS: lisinopriL 5 MG TABLET PO (08:59)
[2021-11-14] MEDS: Atorvastatin Calcium 20 MG TABLET PO (08:59)
[2021-11-14] MEDS: predniSONE 20 MG TABLET PO (08:59)
[2021-11-14] MEDS: Rivaroxaban 15 MG TABLET PO (08:59)
[2021-11-14] MEDS: Gabapentin 600 MG TABLET 1200 MG PO ×2 (09:02→20:46)
[2021-11-14] MEDS: Magnesium Oxide 400 MG TABLET 800 MG PO (09:02)
--- NOTE | 2021-11-14 09:13 | P.PNIM_ITS ---
Subjective Subjective Date of Service: 11/14/21 Interval History: F/u sob, weakness, uti, pna. doing well no new issues overnight, No new complaint Review of Systems +sob +no fever Physical Exam Vital Signs: Vital Signs: Last Vital Signs Temp 97.3 F 11/14/21 07:34 Pulse 78 11/14/21 07:34 Resp 20 11/14/21 07:34 BP 149/79 H 11/14/21 07:34 Pulse Ox 97 11/14/21 07:34 Oxygen Flow Rate 3 10/31/21 22:53 BMI result Body Mass Index 21.0 Const: Other: General: AO X 2, no acute distress Resp: scattered wheezes CVS: S1,S2,RRR GI: +BS, NT, no distention Skin: No rash, Stage II pressure injury/wound to bilateral buttocks/thigh Neuro: motor grossly intact Psych: appropriate affect Objective Data Active Medications Acetaminophen (Acetaminophen 325 Mg Tablet) 650 mg PO Q6H PRN PRN Reason: Pain, Mild (Pain Scale 1-3) Last Admin: 11/10/21 21:43 Dose: 650 mg Documented by: ANN-MARIE Atorvastatin Calcium (Atorvastatin Calcium 20 Mg Tablet) 20 mg PO DAILY [facility] Last Admin: 11/14/21 08:59 Dose: 20 mg Documented by: LYNDSAY Carvedilol (Carvedilol 12.5 Mg Tablet) 12.5 mg PO BID [facility]; Protocol Last Admin: 11/14/21 08:59 Dose: 12.5 mg Documented by: LYNDSAY Dextrose (Dextrose 50 % 25 Gm/50 Ml Vial) 25 gm IVPUSH Q15M PRN; Protocol PRN Reason: per Hypoglycemia Standing Ord. Fluticasone/Vilanterol (Fluticasone/Vilanterol 200/25 Blst.W.Dev) 1 puff INHALE DAILY [facility] Last Admin: 11/14/21 07:26 Dose: Not Given Documented by: DALE Non-Admin Reason: pt sleeping Gabapentin (Gabapentin 600 Mg Tablet) 1,200 mg PO BID [facility] Last Admin: 11/14/21 09:02 Dose: 1,200 mg Documented by: LYNDSAY Glucose (Glucose Gel 15 Gm Gel..Gram.) 15 gm PO Q15M PRN; Protocol PRN Reason: per Hypoglycemia Standing Ord. Insulin Human Lispro (Insulin Lispro 100 Unit/Ml 3 Ml Vial) 0 unit SUBCUT QIDACHS [facility]; Protocol Last Admin: 11/14/21 08:15 Dose: Not Given Documented by: LYNDSAY Non-Admin Reason: No Insulin Coverage Lisinopril (Lisinopril 5 Mg Tablet) 5 mg PO DAILY [facility]; Protocol Last Admin: 11/14/21 08:59 Dose: 5 mg Documented by: LYNDSAY Magnesium Oxide (Magnesium Oxide 400 Mg Tablet) 800 mg PO DAILY [facility] Last Admin: 11/14/21 09:02 Dose: 800 mg Documented by: LYNDSAY Melatonin (Melatonin 3 Mg Tablet) 6 mg PO BEDTIME PRN PRN Reason: Insomnia Last Admin: 11/10/21 21:43 Dose: 6 mg Documented by: ANN-MARIE Prednisone (Prednisone 20 Mg Tablet) 20 mg PO DAILY [facility] Last Admin: 11/14/21 08:59 Dose: 20 mg Documented by: LYNDSAY Rivaroxaban (Rivaroxaban 15 Mg Tablet) 15 mg PO DAILY [facility] Last Admin: 11/14/21 08:59 Dose: 15 mg Documented by: LYNDSAY Senna (Sennosides 8.6 Mg Tablet) 17.2 mg PO BEDTIME PRN PRN Reason: Constipation Sodium Chloride (0.9 % Sodium Chloride Flush 3 Ml Syringe) 3 ml IVFLUSH QSHIFT [facility] Last Admin: 11/14/21 09:02 Dose: Not Given Documented by: LYNDSAY Non-Admin Reason: No Access Labs CBC & Chem 7: 11/01/21 03:31 11/03/21 23:36 Labs: Laboratory Results - last 24 hr 11/13/21 11/13/21 11/13/21 11:42 15:23 19:08 POC Glucose 196 H 370 H* 244 H 11/14/21 07:33 POC Glucose 110 Assessment and Plan (1) UTI (urinary tract infection): Status: Acute Assessment and Plan: 81-year-old female with a past medical history of hypertension, hyperlipidemia, diabetes, CAD, CHF with EF of 55%, paroxysmal AFib on Xarelto, COPD, PFO, sarcoidosis, history of ventricular tachycardia, vitamin-D deficiency presented to the hospital today with weakness.? No change in care today #Generalized weakness:? Likely d/t UTI/pneumonia.? Supportive care.? Cultures negative thus for. #UTI negaive cultues has been on Ceftriaxone since 11/01 and Ceftin since 11/06--Completed antibiotics course #? PNA--treated with Ceftriaxone since 11/01 and Ceftin since 11/06--completed Abx #.COPD, no exacerbation at moment. Negative VQ scan, has been on Azithro since 11/01. DC #Paroxysmal AFib:? rate controlled with Coreg. Continue Xarelto #.chronic diastolic CHF--euvolemic right now. #History of hypertension: Continue Lisinopril and Coreg #History of diabetes:SSI # stage 2 pressure ulcer of sacral area--apply triad Code status: Full code awiating placement, difficult placement due to unvaccinated status, son might take her home Quality Stroke Does the patient have a stroke diagnosis?: No VTE Prior VTE?: No VTE Risk Level:: Medical - moderate - high VTE Device Contraindication: Treatment Not Indicated VTE Drug Contraindication: N/A - Med Ordered
--- NOTE | 2021-11-14 11:16 | MHC.SL.SWA ---
Speech Pathologist Impression: Oral Phase Dysphagia Risk of Aspiration Due to: Medically Fragile History of Pneumonia Dysphasia Diet Status: Downgrade Liquid Consistency and Strategies for Safe Swallow: Liquid Intake Recommendation: Thin Liquid Intake Strategies: Small Sips Solid Food Consistency: Dietary Recommendations: Chopped/Advanced (NDD3) Additional Modifications to Solid Foods: Recommend CHOPPED/ADVANCED (NDD3) solids and THIN liquids, with pills whole in liquid or puree. Patient tolerated liquid by straw this date, and displayed safer eating habits, taking small bites and sips, taking individual sips. Recommend continue total supervision given history of impulsivity during meals and chugging of liquids via straw. Oral Medication Intake: Whole with Puree Compensatory Strategies and Precautions to be Taken for Safe Swallow: Sitting Upright (90 deg) Liquids from Straw Liquids from Wide Cup Small Bites and Sips Alternate Liquids/Solids Rate of Ingestion Change Avoid Specific Foods Supervision While Eating and Drinking for Safe Swallow: Total Supervision (1:1) Foods to Avoid: Patient is edentulous and has only bottom dentures. Recommend avoid tough, difficult to chew solids. Swallowing Recommended Treatments: Compens. Strategy Educat. Recommendation for Speech: Inpatient Speech Therapy Comment: Pt presents with delayed oral phase of swallow due to mastication, mild occasional delay of swallow on harder food consistencies. Pt tolerating diet of CHOPPED/ADVANCED (NDD3) and THIN LIQUIDS, w/ intermittent supervision of straw use. PT continues to need supervision during meals, as presents as occasionally impulsive, w/ monitor for signs of aspiration. At this time, pt is demonstrating improved safety with small bites and sips, including with straw. ST intervention no longer warranted at this level of care. Frequency/Duration: Date Range for Service Req: Timeline to reassess: Luncheonette Manager Clinican/Clinical Fellow: No Supervisory Statement: I have reviewed and agree with the student/clinical fellow's documentation: N/A Speech Language Pathologist: May Figueroa M.A., CCC-GENERAL PRACTICE
[2021-11-14 11:42] LABS: Glucose, Whole Blood 200 mg/dL (60-115)
--- NOTE | 2021-11-14 11:45 | MHC.CM.PN ---
Addendum entered by Delilah Leroy 11/14/21 12:52: PATIENT TELLS THIS ASSISTANT PLANT CONTROL OPERATOR THAT SHE HAS HER O2 AT HOME (THROUGH [facility]) BUT DOES NOT USE IT OFTEN. PATIENT AGREES TO WEAR HER OXYGEN AT HOME AND STATES THAT SON WILL BE THERE TO HELP REMIND HER. Original Note: CALL TO HCP, TOMMY AT [phone] WHO SAYS THAT HE WILL BE STAYING WITH PATIENT UNTIL HER HOME SETTING IN [place] CAN BE ARRANGED. TOMMY IS AWARE THAT [facility] IS OFFERING SERVICES. PER AGREEMENT, PATIENT WILL TRANSFER VIA [facility] WITH A REQUEST FOR 1600 FROM [facility] [place] TO HER HOME. PATIENT, RN, AND UNIT ALSO AWARE IMM 11/14 IN CHART
[2021-11-14 11:55] VITALS: BP 115/76; PULSE 86; RESP 20; TEMP 36.7; O2SAT 98
--- NOTE | 2021-11-14 12:15 | P.DS_ITS ---
DS: Providers Provider Date of Service: 11/14/21 Date of admission: 11/01/21 02:56 Primary care physician: Hunter Prince MD DS: Diagnosis Discharge Diagnosis (1) UTI (urinary tract infection): Status: Resolved DS: Summary Hospital Course Hospital Course: Chief Complaint: Generalized weakness 81-year-old female with a past medical history of hypertension, hyperlipidemia, diabetes, CAD, CHF with EF of 55%, paroxysmal AFib on Xarelto, COPD, PFO, sarcoidosis, history of ventricular tachycardia, vitamin-D deficiency presented to the hospital today with a chief complaint of generalized weakness.? Patient reports that over the past 5 days she has been having generalized weakness which is been worsened over the past 3 days; also has reduced appetite and decreased oral intake for the past 4 5 days.? Denies any falls or trauma.? Patient reports that at baseline she is mostly in the college and does not move much around the house.? Lives with the family and family helps with her daily activities.? Mentions that she wears diapers Denies any chest pain or palpitations.? Denies any cough or sputum production.? Review of all other systems is negative except mentioned above ER course:? Per ER team EMS noted the patient was saturating 89%; given nebulizer treatment; placed on oxygen; unable to the ER patient was breathing comfortably, speaking in full sentences; noted to be mildly tachycardic; on labs noted to have mild hyperkalemia 5.3; EKG showed no acute findings; troponin 22 repeat troponin pending; urinalysis was abnormal consistent with UTI-likely contributing to her generalized weakness.? Admitted for further management.? Chest x-ray also showed hazy opacity.? Patient received ceftriaxone and azithromycin the ER. Hospital course: 81-year-old female with a past medical history of hypertension, hyperlipidemia, diabetes, CAD, CHF with EF of 55%, paroxysmal AFib on Xarelto, COPD, PFO, sarcoidosis, history of ventricular tachycardia, vitamin-D deficiency presented to the hospital today with weakness.? #Generalized weakness:? likel from underlying UTI and PNA , and has improved with treatment with these underlying issues. PT recommended short term rehab unfortunately not able to secure one due to patient unvaccinated status. She has made some progress while and in the end son has elected to take patient home as next best alternative. Will therefore provide home services including PT and OT and recommend to vaccinate as soon as feasible. #UTI, negative culture--Completed 7 day course of treatment with antibiotics #? PNA--treated with? Ceftriaxone since 11/01 and Ceftin for total of 1 week, presently assymptomatic, no fever #.COPD, no exacerbation at moment. Negative VQ scan for PE #Paroxysmal AFib:? rate controlled with Coreg. To continue Xarelto #Chronic diastolic CHF--euvolemic right now. #History of hypertension: Continue Lisinopril and Coreg #History of diabetes: To resume Metformin # stage 2 pressure ulcer of sacral area--apply triad Code status: Full code awiating placement, difficult placement due to unvaccinated status, son might take her home Time Spent with Patient Time attestation: Total time spent providing and/or coordinating discharge services: Discharge coordination time: Greater than 30 minutes Quality: Stroke Does the patient have a stroke diagnosis?: No Physical Exam Verdana 4l Vital Signs: Verdana 4d Verdana 4d Vital Signs: Verdana 4d Verdana 4Bd Last Vital Signs Verdana 4d Accounting Representative New 4d Accounting Representative New 4d Temp 98.1 F 11/14/21 11:55 Accounting Representative New 4d Pulse 86 11/14/21 11:55 Accounting Representative New 4d Resp 20 11/14/21 11:55 BP 115/76 11/14/21 11:55 Pulse Ox 98 11/14/21 11:55 Oxygen Flow Rate 3 10/31/21 22:53 BMI result Body Mass Index 21.0 Const: Other: General: AO X32, no acute distress Resp: scattered wheezes CVS: S1,S2,RRR GI: +BS, NT, no distention Skin: No rash, Stage II pressure injury/wound to bilateral buttocks/thigh Neuro:? motor grossly intact Psych: appropriate affect DS: Data Data Completed and Pending Labs on day of discharge: Laboratory Results - last 24 hr 11/13/21 11/13/21 11/14/21 15:23 19:08 07:33 POC Glucose 370 H* 244 H 110 11/14/21 11:21 POC Glucose 200 H Discharge Plan Discharge Anticipated Discharge Date/Time: 11/02/21 10:56 Patient Disposition: Home Health Service Discharge Diagnosis: Generalized weakness, UTI Referrals: Deanna LEO [Outside] - 3-5 Days ([facility] AND HOME PT, START OF CARE WILL BE BY Tuesday11/18/2021. PLEASE CALL [phone] IF YOU HAVE NOT HEARD FROM THEM. PLEASE ENSURE THAT YOU WEAR YOUR OXYGEN ) Physician,Unknown J [Physician] - 1 Week Discharge Medications: Continued gabapentin 600 mg tablet 1,200 mg PO BID Qty: 360 3RF ketoconazole 2 % cream 1 appl topical BID Qty: 60 0RF (DME) Sanitary WIPES See Rx Instructions .Route .MEDSUPPLY Qty: 100 0RF Rx Instructions: As directed (DME) OneTouch Verio test strips Strip See Rx Instructions .ROUTE .MEDSUPPLY Qty: 10 0RF Rx Instructions: use to check blood sugar once a day carvedilol 12.5 mg tablet 12.5 mg PO BID 90 Days Qty: 180 2RF Rx Instructions: must administer with a meal/food budesonide-formoterol [Symbicort] 160-4.5 mcg/actuation HFA aerosol inhaler 2 puff inhalation BID Qty: 3 3RF Combivent Respimat 20-100 mcg/actuation mist 1 puff PO QID Qty: 12 2RF metformin 500 mg tablet 500 mg PO BID 90 Days Qty: 180 3RF Xarelto 20 mg tablet 20 mg PO DAILY 90 Days Qty: 90 3RF Rx Instructions: must administer with evening meal No Action atorvastatin 40 mg Tablet 40 mg PO DAILY Qty: 30 0RF aspirin 81 mg Tablet,Chewable 81 mg PO DAILY Qty: 30 0RF Discharge Orders: Discharge Order (Routine); Ordered 11/14/21 Ordered By: Jaswant Cleary Diet: advance to usual diet Activity on Discharge: As tolerated Stand Alone Forms: Patient Portal Discharge page Care Plan Goals: Full recovery from UTI, weakness Health Concerns: weakness, UTI Plan of Treatment: Take Ceftin as recommended Assessment: As above Discharge Date/Time: 11/14/21 21:40
--- NOTE | 2021-11-14 14:42 | P.F2F_ITS ---
Service Date Service Date: 11/14/21 Encounter Date of encounter: 11/14/21 Reasons for Services Signs and symptoms assessed: Weakness Homebound: Leaving the home is medically contraindicated at this time without the asist of a device and/or another person due th the listed conditions above and below. Reason homebound: unsteady gait / fall risk and leg weakness Homebound supporting statement: home bound due t weakness, difficulty ambulating and therefore needs the assistance of another person Certification: Based on the above findings, I certify that this patient is confined to the home and needs intermittent [facility] care, physical t herapy and/or speech therapy, or continues to need occupational therapy. The patient is under my care, and I have initiated the establishment of the plan of care. The patient will be followed by a physician who will periodically review the plan of care.
[2021-11-14 15:26] VITALS: BP 156/82; PULSE 100; RESP 18; TEMP 36.9; O2SAT 97
[2021-11-14 17:18] LABS: Glucose, Whole Blood 259 mg/dL (60-115)
[2021-11-14] MEDS: Insulin Lispro 100 UNIT/ML 3 ML VIAL SUBCUT ×2 (17:41→20:46)
[2021-11-14 20:19] VITALS: BP 135/66; PULSE 74; RESP 18; TEMP 37.5
[2021-11-14 20:42] LABS: Glucose, Whole Blood 373 mg/dL (60-115)
== END 2021-11-14 21:40 | disposition home health service (06) | DRG 689 ==
LOC: HO.ED 11-01 01:56 → HO.EDOVER 11-01 03:11 → HO.S3 11-01 14:13
PROVIDERS: Internal Medicine; Admitting Provider Hospitalist; Emergency Provider Internal Medicine; PCP Internal Medicine; Visit Provider Internal Medicine
DX: N39.0 Urinary tract infection, site not specified (principal); J18.9 Pneumonia, unspecified organism; J44.0 Chronic obstructive pulmonary disease with (acute) lower respiratory infection; I50.32 Chronic diastolic (congestive) heart failure; E78.5 Hyperlipidemia, unspecified; I25.10 Atherosclerotic heart disease of native coronary artery without angina pectoris; I48.0 Paroxysmal atrial fibrillation; I11.0 Hypertensive heart disease with heart failure; E11.40 Type 2 diabetes mellitus with diabetic neuropathy, unspecified; L89.322 Pressure ulcer of left buttock, stage 2; L89.312 Pressure ulcer of right buttock, stage 2; L89.152 Pressure ulcer of sacral region, stage 2; Z20.822 Contact with and (suspected) exposure to COVID-19; Z87.891 Personal history of nicotine dependence; Z79.4 Long term (current) use of insulin; Z79.01 Long term (current) use of anticoagulants; Z79.51 Long term (current) use of inhaled steroids; Z79.82 Long term (current) use of aspirin; Z79.899 Other long term (current) drug therapy
CPT/HCPCS: 36415; 71045; 78580; 80048; 80053; 81001; 82947; 83605; 83735; 83880; 84484; 85025; 85379; 85610; 87040; 87086; 87635; 92610; 93005; 94640; 96361; 96365; 96367; 97110; 97162; 97530; 99285; A9540; J0456; J0696

== ENCOUNTER 2021-11-16 11:55 | Outpatient (REF) | payer MEDICARE, MEDICAID, SELFPAY | END 2021-11-16 11:56 | disposition home or self-care (01) | LOC: HO.LNP 11:55 | PROVIDERS: Visit Provider Physician Assistant | DX: Z13.89 Encounter for screening for other disorder (principal) | CPT/HCPCS: 83013 ==

== ENCOUNTER 2021-11-18 11:35 | Inpatient (IN) | payer MEDICARE, MEDICAID, SELFPAY ==
[2021-11-18] VITALS (8 sets, daily range): BP systolic 85–188; BP diastolic 44–110; PULSE 72–138; RESP 18–30; TEMP 35.8–36.7; O2SAT 89–99; BMI 25.9
--- NOTE | 2021-11-18 | ECG_ITS ---
Test Reason : weakness Blood Pressure : / mmHG Vent. Rate : 123 BPM Atrial Rate : 123 BPM P-R Int : 142 ms QRS Dur : 082 ms QT Int : 328 ms P-R-T Axes : 081 110 -27 degrees QTc Int : 469 ms Sinus tachycardia Right axis deviation Nonspecific ST and T wave abnormality Abnormal ECG When compared with ECG of 01-NOV-2021 01:58, No significant change was found Referred By: Mani Anderson Electronically Signed By:ANDERSON DE LEON
--- NOTE | ~2021-11-18 | CT_ITS ---
EXAMINATION: CT ABDOMEN AND PELVIS WITHOUT CONTRAST CLINICAL INFORMATION: Diffuse abdominal pain COMPARISON: Previous CT of the abdomen and pelvis June [address] December 2016 TECHNIQUE: Multidetector volumetric imaging was performed from the superior aspect of the liver through the pubic symphysis. Sagittal and coronal reformatted images were obtained on the technologist's workstation. This CT examination was performed using dose optimization techniques as appropriate, variously including the following: *Automated exposure control *Adjustment of mA and/or kV according to patient size (this includes techniques or standardized protocols for targeted exams where dose is matched to indication/reason for exam; i.e. extremities or head) *Use of iterative reconstruction technique DLP: 460 mGy-cm FINDINGS: LUNG BASES: There is volume loss left hemithorax with shift of the mediastinal structures to the left. There is a small pericardial effusion that appears unchanged. There are new small bilateral pleural effusions, left greater than right. LIVER, GALLBLADDER, AND BILIARY TREE: The liver is normal in size, shape, and attenuation. No focal hepatic lesion or biliary ductal dilatation is present. There are small gallstones in the gallbladder. The gallbladder is otherwise unremarkable. PANCREAS: Unremarkable. SPLEEN: Unremarkable. ADRENAL GLANDS: Unremarkable. KIDNEYS AND URETERS: There is moderate bilateral hydronephrosis. There is dilatation of both ureters down to the bladder, left greater than right. No stone or mass is seen. There is stranding of the perinephric fat. This may be related to backflow of urine. Differential would include infection. BLADDER: Well distended but otherwise unremarkable. GASTROINTESTINAL TRACT: There is diverticulosis of the colon. No evidence of diverticulitis is seen. There is stool Throughout the colon suggestive of severe constipation and distal fecal impaction. There is mild wall thickening of the distal sigmoid colon and rectum questionable for mild stercoral colitis related to chronic obstruction. There is also new mild fat stranding of the presacral space. The appendix is normal. The stomach is normal. ABDOMINAL WALL: No significant hernia is appreciated. LYMPH NODES: Normal. VASCULAR: There is evidence of atherosclerotic disease. PELVIC VISCERA: Uterus appears to have been removed. No pelvic mass. OSSEOUS STRUCTURES: There are severe degenerative changes of the spine. There is a 5 mm anterior subluxation of L4 with respect to L5. There is lumbar scoliosis. There are severe degenerative changes at the hip joints. CT/CT abdomen pelvis wo con IMPRESSION: Severe bilateral hydronephrosis and ureteral dilatation down to the bladder. The bladder is well distended. Bladder outlet obstruction and secondary hydroureteronephrosis should be considered. Severe constipation and fecal impaction. Question mild stercoral colitis related to chronic obstruction of the distal colon. Diverticulosis. No evidence of diverticulitis. New small bilateral pleural effusions. Small gallstones in the gallbladder. Severe atherosclerotic disease. Fleischner guidelines were followed.
--- NOTE | ~2021-11-18 | XR_ITS ---
EXAMINATION: XR CHEST CLINICAL INFORMATION: Cough. Diffuse abdominal pain. COMPARISON: Previous chest x-ray October 2021 TECHNIQUE: Frontal view of the chest was obtained. FINDINGS: The cardiac and mediastinal contours are stable. There is increased soft tissue in the hilum suggestive of lymphadenopathy. Similar to previous exams. There may be volume loss to the left hemithorax with shift of the central mediastinal structures to the left. The right lung is clear. There is increased density left lateral lung base questionable for left pleural effusion or airspace disease versus changes due to overlying soft tissues and the heart. There is no pneumothorax. Bony structures are unremarkable. XR/XR chest 1V IMPRESSION: Prominent pulmonary hair suggestive of lymphadenopathy. Question volume loss to the left hemithorax. Question pleural-parenchymal disease at the lateral left lung base versus overlying heart and soft tissues
--- NOTE | ~2021-11-18 | US_ITS ---
EXAMINATION: US RETROPERITONEAL LIMITED (RENAL ONLY) CLINICAL INFORMATION: Hydronephrosis. COMPARISON: CT abdomen and pelvis 11/18/2021. TECHNIQUE: Real-time imaging of the kidneys. FINDINGS: RIGHT KIDNEY: 10.2 x 5.0 x 5.4 cm (SAG x AP x TRV). The kidney is normal in size, contour, and echogenicity. Renal cortical thickness is normal. No calculi or focal parenchymal lesions. No hydronephrosis. LEFT KIDNEY: 9.3 x 4.4 x 4.3 cm (SAG x AP x TRV). The kidney is normal in size, contour, and echogenicity. Renal cortical thickness is normal. No calculi or focal parenchymal lesions. No hydronephrosis. There is mild perinephric fluid collection along the mid and lower pole. US/US renal BI IMPRESSION: Unremarkable ultrasound bilateral kidneys except for mild perinephric fluid collection along the mid and lower pole left kidney.
--- NOTE | 2021-11-18 12:10 | ED_ITS ---
HPI - General Adult General Chief complaint: Failure to Thrive Stated complaint: FTT,NOT EATING SINCE TUESDAY Time Seen by Provider: 11/18/21 11:55 Source: patient, family, EMS and old records reviewed History of Present Illness HPI narrative: 81-year-old female with a past medical history of hypertension, hyperlipidemia, diabetes, CAD, CHF with EF of 55%, paroxysmal AFib on Xarelto, COPD, PFO, sarcoidosis, history of ventricular tachycardia, vitamin-D deficiency presented to the hospital today with a chief complaint of abdominal pain. Patient states for the past several days she has not been eating or drinking. She was recently admitted for urinary tract infection and dehydration and discharged 3 days ago to home. Per EMS she has not been eating or drinking since discharge. Patient states her abdomen hurts all over. She states she has intermittent diarrhea but unable to say when. Nausea but no vomiting. She denies cough but is clearly coughing and congested. Her son called EMS today stating that he wants her to go to rehab now. EMS found patient to be tachycardic at 125 beats per minute. Also tachypneic. She presents on 3 L nasal cannula but is not normally on oxygen at home. Related Data Home Medications Medication Instructions Recorded Confirmed blood sugar diagnostic (OneTouch #10 ea 04/17/21 Verio test strips) Previous Rx's Medication Instructions Recorded atorvastatin 20 mg tablet 20 mg PO DAILY #90 tab 09/02/20 gabapentin 600 mg tablet 1,200 mg PO BID #360 tab 10/23/20 ketoconazole 2 % topical cream 1 appl TOPICAL BID #60 g 12/26/20 Sanitary WIPES #100 ea 03/18/21 carvedilol 12.5 mg tablet 12.5 mg PO BID 90 Days #180 tab 05/12/21 lisinopril 5 mg tablet 5 mg PO DAILY #90 tab 05/12/21 budesonide-formoterol HFA 160 2 puff INHALATION BID #3 ea 07/27/21 mcg-4.5 mcg/actuation aerosol inhaler (Symbicort) ipratropium 20 mcg-albuterol 100 1 puff PO QID #12 ml 07/28/21 mcg/actuation mist for inhalation (Combivent Respimat) metformin 500 mg tablet 500 mg PO BID 90 Days #180 tab 07/28/21 rivaroxaban 20 mg tablet (Xarelto) 20 mg PO DAILY 90 Days #90 tab 08/21/21 Allergies Allergy/AdvReac Type Severity Reaction Status Date / Time Iodinated Contrast Media Allergy Severe ANAPHYLAXIS Verified 12/18/20 09:40 [IV Dye, Iodine Containing] shellfish derived Allergy Severe TREMORS, Verified 12/18/20 09:40 [SHELLFISH DERIVED] HALLUCINATIONS fluticasone [Advair Diskus] Allergy Unknown unk Verified 12/18/20 09:40 salmeterol [Advair Diskus] Allergy Unknown unk Verified 12/18/20 09:40 loratadine [From Claritin] AdvReac Mild NAUSEA & Verified 12/18/20 09:40 VOMITING Sea food Allergy Unknown itching Uncoded 12/18/20 09:40 Review of Systems Review of Systems: Patient is somewhat confused and review of systems is unreliable. [facility] Past Medical History Medical History Cardiomyopathy COPD (chronic obstructive pulmonary disease) Coronary artery disease Diabetic nephropathy Diabetic neuropathy Essential hypertension Hypercholesterolemia Nonischemic cardiomyopathy Paroxysmal atrial fibrillation PFO (patent foramen ovale) Sarcoidosis Spinal stenosis of lumbar region Ventricular tachycardia Vitamin D deficiency Surgical History History of bladder surgery History of cardiac catheterization (~04/2016) History of cardioversion (~12/2016) History of hysterectomy Family History Family History Father CVD (cardiovascular disease) Mother Diabetes Social History Social History Housing: Apartment Patient Tobacco Use Status: Former Tobacco user Advance Directives: Yes Advance Directives on File: Yes Advance Directives Date on File: 11/18/21 service: No Current occupational status: unemployed Physical Exam Vital Signs: Vital Signs: Last Vital Signs Temp 98.1 F 11/18/21 16:04 Pulse 120 H 11/18/21 16:04 Resp 22 H 11/18/21 16:04 BP 128/72 11/18/21 15:00 Pulse Ox 95 11/18/21 16:04 Oxygen Flow Rate 3 11/18/21 11:53 BMI result Body Mass Index 25.9 Const: Other: Awake. Appears uncomfortable. Vital signs as above. Tachycardic and tachypneic. HENMT: Other: Mucosa dry Resp: Other: Coarse rhonchi and rales bilaterally. Tachypneic. Moderate respiratory distress. Fair air entry Cardio: Other: Tachycardic but regular without murmurs rubs or gallops GI: Other: Distended. Diffusely tender. Diminished bowel sounds. Skin: Other: Warm and dry. Poor turgor. Positive tenting. Neuro: Other: Nonfocal. Course Course Course Narrative: Abdominal pain in the setting of recent urinary tract infection Dehydration Bowel obstruction Diverticulitis Colitis Gastroenteritis COVID-19 infection 12:17 p.m.. Patient is tachycardic and tachypneic but does not have a fever and is not hypotensive. No current evidence for sepsis. 1:[address] scan of the abdomen shows urinary retention as well as fecal impaction. There is also likely transverse colitis. Started on IV antibiotics. Will perform disimpaction and Mccarthy ordered. Troponin is elevated. Repeat troponin ordered. Aspirin ordered. COVID-19 test is positive. 2:21 p.m.. Anticipate hospitalization. Await urinalysis and Mccarthy insertion and repeat troponin 3:25 p.m.. Urinalysis shows urinary tract infection with white cells too numerous to count. Ceftriaxone ordered. Await 2nd troponin 4:23 p.m.. Repeat troponin is 374. Procedures Procedure Narrative Procedure Narrative: Fecal disimpaction. Large amounts of stool disimpacted. Patient tolerated it fairly well. No bleeding. No complications. Medical Decision Making Lab Data Result diagrams: 11/18/21 12:18 11/18/21 12:18 Labs: Lab Results 11/18/21 11/18/21 11/18/21 Range/Units 12:13 12:17 12:17 WBC (4.8-10.8) X10*3/uL RBC (4.20-5.50) X10*6/uL Hgb (12.0-16.0) g/dl Hct (37.0-47.0) % MCV (80.0-98.0) fL MCH (27.0-33.0) pg MCHC (31.0-35.0) g/dl RDW (11.0-16.0) % Plt Count (160-400) X10*3/uL MPV (9.4-12.3) fL Immature Gran % (Auto) (0.0-0.4) % Neut % (Auto) (45-73) % Lymph % (Auto) (20-40) % Travis % (Auto) (2-11) % Eos % (Auto) (0-4) % Baso % (Auto) (0-2) % Lymph # (Auto) (1.2-4.9) X10*3/uL Travis # (Auto) (0.1-1.2) X10*3/uL Eos # (Auto) (0.0-0.4) X10*3/uL Baso # (Auto) (0.0-0.2) X10*3/uL Abs Immat Gran (auto) (0.00-0.03) X10*3/uL Absolute Neuts (auto) (2.0-8.3) x10*3/uL Absolute Nucleated RBC (0.0-0.012) X10*3/uL Nucleated RBC % (auto) (0.0-0.2) /100WBC D-Dimer High Sensitivty 470 NG/ML Sodium (135-145) mmol/L Potassium (3.3-5.1) mmol/L Chloride (96-108) mmol/L Carbon Dioxide (22-29) mmol/L Anion Gap (12-20) BUN (9-16) mg/dL Creatinine (0.5-1.4) mg/dL Estim Creat Clear Calc Estimated GFR POC Glucose 77 (60-115) mg/dL Random Glucose (60-115) mg/dL Lactic Acid (0.5-2.0) mmol/L Calcium (8.4-10.2) mg/dL Total Bilirubin (0.0-1.0) mg/dL AST (5-31) U/L ALT (0-31) U/L Alkaline Phosphatase (39-117) U/L Troponin I High Sens (<3.5-17.0) ng/L B-Natriuretic Peptide 80 (<100) pg/mL Total Protein (6.5-8.0) g/dL Albumin (3.5-5.0) g/dL Urine Color Urine Appearance Urine pH (5.0-8.0) Ur Specific [place] (1.005-1.025) Urine Protein (NEG-TRACE) MG/DL Urine Glucose (UA) (NEG) MG/DL Urine Ketones (NEG) MG/DL Urine Blood (NEG) Urine Nitrite (NEG) Ur Leukocyte Esterase (NEG) Urine RBC (0) /HPF Urine WBC (0-4) /HPF Ur Squamous Epith Cells /LPF Ur Renal Epithelial Cell /LPF Urine Bacteria /LPF Urine Yeast /HPF COVID-19 (SOTO) (Negative) COVID-19 Clin Com 11/18/21 11/18/21 11/18/21 Range/Units 12:18 12:18 12:18 WBC 9.3 (4.8-10.8) X10*3/uL RBC 3.87 L (4.20-5.50) X10*6/uL Hgb 12.5 (12.0-16.0) g/dl Hct 36.4 L (37.0-47.0) % MCV 94.1 (80.0-98.0) fL MCH 32.3 (27.0-33.0) pg MCHC 34.3 (31.0-35.0) g/dl RDW 13.3 (11.0-16.0) % Plt Count 289 (160-400) X10*3/uL MPV 8.8 L (9.4-12.3) fL Immature Gran % (Auto) 0.3 (0.0-0.4) % Neut % (Auto) 75.2 H (45-73) % Lymph % (Auto) 12.2 L (20-40) % Travis % (Auto) 10.6 (2-11) % Eos % (Auto) 1.3 (0-4) % Baso % (Auto) 0.4 (0-2) % Lymph # (Auto) 1.1 L (1.2-4.9) X10*3/uL Travis # (Auto) 1.0 (0.1-1.2) X10*3/uL Eos # (Auto) 0.1 (0.0-0.4) X10*3/uL Baso # (Auto) 0.0 (0.0-0.2) X10*3/uL Abs Immat Gran (auto) 0.03 (0.00-0.03) X10*3/uL Absolute Neuts (auto) 7.0 (2.0-8.3) x10*3/uL Absolute Nucleated RBC 0.000 (0.0-0.012) X10*3/uL Nucleated RBC % (auto) 0.0 (0.0-0.2) /100WBC D-Dimer High Sensitivty NG/ML Sodium 138 (135-145) mmol/L Potassium 3.7 D (3.3-5.1) mmol/L Chloride 99 (96-108) mmol/L Carbon Dioxide 28 (22-29) mmol/L Anion Gap 15 (12-20) BUN 14 (9-16) mg/dL Creatinine 0.69 (0.5-1.4) mg/dL Estim Creat Clear Calc 56.3 Estimated GFR > 60 POC Glucose (60-115) mg/dL Random Glucose 83 (60-115) mg/dL Lactic Acid 1.1 (0.5-2.0) mmol/L Calcium 8.9 D (8.4-10.2) mg/dL Total Bilirubin 0.6 (0.0-1.0) mg/dL AST 18 (5-31) U/L ALT 22 (0-31) U/L Alkaline Phosphatase 54 D (39-117) U/L Troponin I High Sens (<3.5-17.0) ng/L B-Natriuretic Peptide (<100) pg/mL Total Protein 5.6 L (6.5-8.0) g/dL Albumin 3.4 L (3.5-5.0) g/dL Urine Color Urine Appearance Urine pH (5.0-8.0) Ur Specific [place] (1.005-1.025) Urine Protein (NEG-TRACE) MG/DL Urine Glucose (UA) (NEG) MG/DL Urine Ketones (NEG) MG/DL Urine Blood (NEG) Urine Nitrite (NEG) Ur Leukocyte Esterase (NEG) Urine RBC (0) /HPF Urine WBC (0-4) /HPF Ur Squamous Epith Cells /LPF Ur Renal Epithelial Cell /LPF Urine Bacteria /LPF Urine Yeast /HPF COVID-19 (SOTO) (Negative) COVID-19 Clin Com 11/18/21 11/18/21 11/18/21 Range/Units 12:18 12:19 14:47 WBC (4.8-10.8) X10*3/uL RBC (4.20-5.50) X10*6/uL Hgb (12.0-16.0) g/dl Hct (37.0-47.0) % MCV (80.0-98.0) fL MCH (27.0-33.0) pg MCHC (31.0-35.0) g/dl RDW (11.0-16.0) % Plt Count (160-400) X10*3/uL MPV (9.4-12.3) fL Immature Gran % (Auto) (0.0-0.4) % Neut % (Auto) (45-73) % Lymph % (Auto) (20-40) % Travis % (Auto) (2-11) % Eos % (Auto) (0-4) % Baso % (Auto) (0-2) % Lymph # (Auto) (1.2-4.9) X10*3/uL Travis # (Auto) (0.1-1.2) X10*3/uL Eos # (Auto) (0.0-0.4) X10*3/uL Baso # (Auto) (0.0-0.2) X10*3/uL Abs Immat Gran (auto) (0.00-0.03) X10*3/uL Absolute Neuts (auto) (2.0-8.3) x10*3/uL Absolute Nucleated RBC (0.0-0.012) X10*3/uL Nucleated RBC % (auto) (0.0-0.2) /100WBC D-Dimer High Sensitivty NG/ML Sodium (135-145) mmol/L Potassium (3.3-5.1) mmol/L Chloride (96-108) mmol/L Carbon Dioxide (22-29) mmol/L Anion Gap (12-20) BUN (9-16) mg/dL Creatinine (0.5-1.4) mg/dL Estim Creat Clear Calc Estimated GFR POC Glucose (60-115) mg/dL Random Glucose (60-115) mg/dL Lactic Acid (0.5-2.0) mmol/L Calcium (8.4-10.2) mg/dL Total Bilirubin (0.0-1.0) mg/dL AST (5-31) U/L ALT (0-31) U/L Alkaline Phosphatase (39-117) U/L Troponin I High Sens 440.1 H* D (<3.5-17.0) ng/L B-Natriuretic Peptide (<100) pg/mL Total Protein (6.5-8.0) g/dL Albumin (3.5-5.0) g/dL Urine Color STRAW Urine Appearance TURBID Urine pH 7.0 (5.0-8.0) Ur Specific [place] 1.020 (1.005-1.025) Urine Protein 1+ H (NEG-TRACE) MG/DL Urine Glucose (UA) 100 H (NEG) MG/DL Urine Ketones 15 (NEG) MG/DL Urine Blood 2+ H (NEG) Urine Nitrite NEG (NEG) Ur Leukocyte Esterase 3+ H (NEG) Urine RBC 15-29 H (0) /HPF Urine WBC TNTC H (0-4) /HPF Ur Squamous Epith Cells 2+ /LPF Ur Renal Epithelial Cell 2+ /LPF Urine Bacteria NONE /LPF Urine Yeast 3+ /HPF COVID-19 (SOTO) Positive A (Negative) COVID-19 Clin Com See Note 11/18/21 11/18/21 Range/Units 15:03 15:49 WBC (4.8-10.8) X10*3/uL RBC (4.20-5.50) X10*6/uL Hgb (12.0-16.0) g/dl Hct (37.0-47.0) % MCV (80.0-98.0) fL MCH (27.0-33.0) pg MCHC (31.0-35.0) g/dl RDW (11.0-16.0) % Plt Count (160-400) X10*3/uL MPV (9.4-12.3) fL Immature Gran % (Auto) (0.0-0.4) % Neut % (Auto) (45-73) % Lymph % (Auto) (20-40) % Travis % (Auto) (2-11) % Eos % (Auto) (0-4) % Baso % (Auto) (0-2) % Lymph # (Auto) (1.2-4.9) X10*3/uL Travis # (Auto) (0.1-1.2) X10*3/uL Eos # (Auto) (0.0-0.4) X10*3/uL Baso # (Auto) (0.0-0.2) X10*3/uL Abs Immat Gran (auto) (0.00-0.03) X10*3/uL Absolute Neuts (auto) (2.0-8.3) x10*3/uL Absolute Nucleated RBC (0.0-0.012) X10*3/uL Nucleated RBC % (auto) (0.0-0.2) /100WBC D-Dimer High Sensitivty NG/ML Sodium (135-145) mmol/L Potassium (3.3-5.1) mmol/L Chloride (96-108) mmol/L Carbon Dioxide (22-29) mmol/L Anion Gap (12-20) BUN (9-16) mg/dL Creatinine (0.5-1.4) mg/dL Estim Creat Clear Calc Estimated GFR POC Glucose 142 H (60-115) mg/dL Random Glucose (60-115) mg/dL Lactic Acid (0.5-2.0) mmol/L Calcium (8.4-10.2) mg/dL Total Bilirubin (0.0-1.0) mg/dL AST (5-31) U/L ALT (0-31) U/L Alkaline Phosphatase (39-117) U/L Troponin I High Sens 374.8 H* (<3.5-17.0) ng/L B-Natriuretic Peptide (<100) pg/mL Total Protein (6.5-8.0) g/dL Albumin (3.5-5.0) g/dL Urine Color Urine Appearance Urine pH (5.0-8.0) Ur Specific [place] (1.005-1.025) Urine Protein (NEG-TRACE) MG/DL Urine Glucose (UA) (NEG) MG/DL Urine Ketones (NEG) MG/DL Urine Blood (NEG) Urine Nitrite (NEG) Ur Leukocyte Esterase (NEG) Urine RBC (0) /HPF Urine WBC (0-4) /HPF Ur Squamous Epith Cells /LPF Ur Renal Epithelial Cell /LPF Urine Bacteria /LPF Urine Yeast /HPF COVID-19 (SOTO) (Negative) COVID-19 Clin Com Critical Care Time Critical Care Time Critical Care Time: Yes Total Critical Care Time: 120 Attestation: Patient with multiple issues including non ST-elevation myocardial infarction, tachycardia, fecal impaction, COVID-19 infection, urinary retention, Treated aggressively with IV fluids, IV antibiotics, Critical care time is outside of separately billable procedures such as fecal disimpaction Discharge Plan Discharge Patient Disposition: Admitted As Inpatient
[2021-11-18 12:17] LABS: Glucose, Whole Blood 77 mg/dL (60-115)
[2021-11-18 12:28] LABS: MANUAL DIFF FLAG NO
[2021-11-18 12:29] LABS: Basophils Percent Auto 0.4 % (0-2); Eosinophils Absolute Auto 0.1 X10*3/uL (0.0-0.4); Eosinophils Percent Auto 1.3 % (0-4); Hematocrit 36.4 % (37.0-47.0); Hemoglobin 12.5 g/dl (12.0-16.0); Imm Gran Abs Auto 0.03 X10*3/uL (0.00-0.03); Imm Gran Pct Auto 0.3 % (0.0-0.4); Lymphocytes Absolute Auto 1.1 X10*3/uL (1.2-4.9); Lymphocytes Percent Auto 12.2 % (20-40); Mean Corpuscular HGB Conc 34.3 g/dl (31.0-35.0); Mean Corpuscular Hemoglobin 32.3 pg (27.0-33.0); Mean Corpuscular Volume 94.1 fL (80.0-98.0); Mean Platelet Volume 8.8 fL (9.4-12.3); Monocytes Percent Auto 10.6 % (2-11); Neutrophils Percent Auto 75.2 % (45-73); Platelet Count 289 X10*3/uL (160-400); Red Blood Count 3.87 X10*6/uL (4.20-5.50); Red Cell Distribution Width 13.3 % (11.0-16.0); White Blood Count 9.3 X10*3/uL (4.8-10.8)
[2021-11-18] MEDS: Albuterol Sulfate (0.083%) 2.5 MG/3 ML VIAL.NEB INHALE (12:30)
[2021-11-18 12:36] LABS: D Dimer High Sensitivity 470 NG/ML
[2021-11-18 12:44] LABS: Lactic Acid 1.1 mmol/L (0.5-2.0)
[2021-11-18 12:49] LABS: Alanine Aminotransferase 22 U/L (0-31); Albumin Level 3.4 g/dL (3.5-5.0); Alkaline Phosphatase 54 U/L (39-117); Anion Gap 15 (12-20); Aspartate Amino Transferase 18 U/L (5-31); Bilirubin Total 0.6 mg/dL (0.0-1.0); Blood Urea Nitrogen 14 mg/dL (9-16); Calcium 8.9 mg/dL (8.4-10.2); Carbon Dioxide 28 mmol/L (22-29); Chloride 99 mmol/L (96-108); Creatinine Clr Calc Pharmacy 56.3; Estimated Glomerular Filt Rate > 60; Glucose Random 83 mg/dL (60-115); Potassium 3.7 mmol/L (3.3-5.1); Sodium 138 mmol/L (135-145); Total Protein 5.6 g/dL (6.5-8.0)
[2021-11-18 12:54] LABS: B Type Natriuretic Peptide 80 pg/mL (<100)
--- NOTE | 2021-11-18 12:54 | PHA.MEDREC ---
Pharmacy Consult ? Medication Reconciliation Pharmacy has completed the medication reconciliation. Patient discharged from [facility] on 11/14/2021. There were no changes on discharge. Jessica Leal, KadyD
[2021-11-18 12:56] LABS: Troponin-I High Sensitivity 440.1 ng/L (<3.5-17.0)
[2021-11-18] MEDS: 0.9 % Sodium Chloride 500 ML IV (13:04)
[2021-11-18] MEDS: ondansetron HCL 4 MG/2 ML VIAL IVPUSH (13:04)
[2021-11-18 13:26] LABS: COVID-19 Test Positive (Negative)
[2021-11-18] MEDS: Aspirin 81 MG TAB.CHEW 162 MG PO (14:52)
[2021-11-18] MEDS: Piperacillin Sodium/Tazobactam 3.375 GM in 0.9 % Sodium Chloride 50 ML IV (14:53)
[2021-11-18 14:59] LABS: Appearance Urine TURBID; Color Urine STRAW; Glucose Urine UA 100 MG/DL (NEG); Leukocyte Esterase Urine 3+ (NEG); Nitrite Urine NEG (NEG); UACC Culture Trigger YES; Urine Blood 2+ (NEG); Urine Ketones 15 MG/DL (NEG); Urine Protein 1+ MG/DL (NEG-TRACE)
[2021-11-18 15:10] LABS: Glucose, Whole Blood 142 mg/dL (60-115)
[2021-11-18 15:12] LABS: Renal Epithelial Cells Urine 2+ /LPF; Squamous Epithelial Cell Urine 2+ /LPF
[2021-11-18 15:13] LABS: WBC Urine TNTC /HPF (0-4)
[2021-11-18] MEDS: cefTRIAXone sodium 1 GM in 0.9 % Sodium Chloride 50 ML IV (15:53)
[2021-11-18] MEDS: Acetaminophen 325 MG TABLET 650 MG PO (15:54)
[2021-11-18 16:16] LABS: Troponin-I High Sensitivity 374.8 ng/L (<3.5-17.0)
--- NOTE | 2021-11-18 17:12 | P.HPHOSP_ITS ---
History of Present Illness Date of Service: 11/18/21 Chief Complaint: abdominal pain 81yo F with AF on rivaroxaban, hx VT, HFpEF, HTN, HLD, CAD, PFO, COPD, sarcoidosis who was recently admitted to this hospital 11/01/21-11/14/21 with weakness due to UTI and PNA. She was recommended to go to SNF for STR but due to [id number] status, placement could not be secured, so she went to live with her son. She says she has had abdominal pain for the past several days. No fever. No chest pain. A visiting nurse came to her home today and found that she had not been eating or drinking since Tuesday. Her son called EMS. They found her tachycardic and tachypneic and hypoxic with Sa 88% on room air, and brought her in on 3L O2 via NC. CT of the abdomen showed stercoral colitis with severe fecal impaction and urinary retention with hydroureteronephrosis and bladder outlet obstruction. Disimpaction was done and Mccarthy ordered. UA with pyuria and bacteruria and ceftriaxone was ordered. High-sensitivity troponin-I elevated to 440; repeat was 375. EKG with sinus tachycardia, RAD, lateral ST depression. Covid-19 SOTO was positive. No sick contacts. She is not a good historian and the above history was obtained from the ED physician and from her sons Garcia and Randolph via telephone. She thinks we are making this all up . Review of Systems Review of Systems: Yes Unobtainable due to mental status [facility] Medical History Cardiomyopathy COPD (chronic obstructive pulmonary disease) Coronary artery disease Diabetic nephropathy Diabetic neuropathy Essential hypertension Hypercholesterolemia Nonischemic cardiomyopathy Paroxysmal atrial fibrillation PFO (patent foramen ovale) Sarcoidosis Spinal stenosis of lumbar region Ventricular tachycardia Vitamin D deficiency Family History Father CVD (cardiovascular disease) Mother Diabetes Surgical History History of bladder surgery History of cardiac catheterization (~04/2016) History of cardioversion (~12/2016) History of hysterectomy Social History Housing: Apartment Patient Tobacco Use Status: Former Tobacco user Advance Directives: Yes Advance Directives on File: Yes Advance Directives Date on File: 11/18/21 service: No Current occupational status: unemployed Meds Allergies Allergy/AdvReac Type Severity Reaction Status Date / Time Iodinated Contrast Media Allergy Severe ANAPHYLAXIS Verified 12/18/20 09:40 [IV Dye, Iodine Containing] shellfish derived Allergy Severe TREMORS, Verified 12/18/20 09:40 [SHELLFISH DERIVED] HALLUCINATIONS fluticasone [Advair Diskus] Allergy Unknown unk Verified 12/18/20 09:40 salmeterol [Advair Diskus] Allergy Unknown unk Verified 12/18/20 09:40 loratadine [From Claritin] AdvReac Mild NAUSEA & Verified 12/18/20 09:40 VOMITING Sea food Allergy Unknown itching Uncoded 12/18/20 09:40 Active Medications: Current Medications Albuterol Sulfate (Albuterol Sulfate 90 Mcg 8 Gm Inhaler) 4 puff INHALE RQ4H WHILE AWAKE [facility] Albuterol Sulfate (Albuterol Sulfate 90 Mcg 8 Gm Inhaler) 4 puff INHALE Q2H PRN PRN Reason: shortness of breath or wheeze Atorvastatin Calcium (Atorvastatin Calcium 40 Mg Tablet) 40 mg PO DAILY [facility] Carvedilol (Carvedilol 12.5 Mg Tablet) 12.5 mg PO BID [facility]; Protocol Dexamethasone Sodium Phosphate (Dexamethasone Sod Phosphate 4 Mg/Ml Vial) 6 mg IVPUSH DAILY [facility] Stop: 11/27/21 09:01 Dextrose (Dextrose 50 % 25 Gm/50 Ml Vial) 25 gm IVPUSH Q15M PRN; Protocol PRN Reason: per Hypoglycemia Standing Ord. Fluticasone/Vilanterol (Fluticasone/Vilanterol 200/25 Blst.W.Dev) 1 puff INHALE RDAILY [facility] Gabapentin (Gabapentin 600 Mg Tablet) 1,200 mg PO BID [facility] Glucose (Glucose Gel 15 Gm Gel..Gram.) 15 gm PO Q15M PRN; Protocol PRN Reason: per Hypoglycemia Standing Ord. Ceftriaxone Sodium 1 gm/ (Sodium Chloride) 50 mls @ 100 mls/hr IV Q24H [facility] Insulin Human Lispro (Insulin Lispro 100 Unit/Ml 3 Ml Vial) 0 unit SUBCUT QIDACHS [facility]; Protocol Lisinopril (Lisinopril 5 Mg Tablet) 5 mg PO DAILY [facility]; Protocol Rivaroxaban (Rivaroxaban 20 Mg Tablet) 20 mg PO DAILY [facility] Home Medications Medication Instructions Recorded Confirmed Last Taken Type blood sugar diagnostic (hSerlynTouch #10 ea 04/17/21 Unknown History Verio test strips) Physical Exam Vital Signs and Narrative: Vital Signs: Last Vital Signs Temp 98.1 F 11/18/21 16:04 Pulse 120 H 11/18/21 16:04 Resp 22 H 11/18/21 16:04 BP 128/72 11/18/21 15:00 Pulse Ox 95 11/18/21 16:04 Oxygen Flow Rate 3 11/18/21 11:53 BMI result Body Mass Index 25.9 Gen: chronically ill-appearing HEENT: sclera anicteric, moist mucus membranes Neck: supple Lungs: diminished throughout Heart: tachycardic Abd: soft, tender without rebound/guarding Ext: no edema Skin: warm/well-perfused Neuro: disoriented Psych: impaired insight Results Labs CBC and Chem 7: 11/18/21 12:18 11/18/21 12:18 Labs: Laboratory Results - last 24 hr 11/18/21 11/18/21 11/18/21 12:13 12:17 12:17 MCV MCH MCHC RDW Plt Count MPV Immature Gran % (Auto) Neut % (Auto) Lymph % (Auto) [place] % (Auto) Eos % (Auto) Baso % (Auto) Lymph # (Auto) [place] # (Auto) Eos # (Auto) Baso # (Auto) Abs Immat Gran (auto) Absolute Neuts (auto) Absolute Nucleated RBC Nucleated RBC % (auto) D-Dimer High Sensitivty 470 Anion Gap Estim Creat Clear Calc Estimated GFR POC Glucose 77 Random Glucose Lactic Acid Calcium Total Bilirubin AST ALT Alkaline Phosphatase Troponin I High Sens B-Natriuretic Peptide 80 Total Protein Albumin Urine Color Urine Appearance Urine pH Ur Specific [place] Urine Protein Urine Glucose (UA) Urine Ketones Urine Blood Urine Nitrite Ur Leukocyte Esterase Urine RBC Urine WBC Ur Squamous Epith Cells Ur Renal Epithelial Cell Urine Bacteria Urine Yeast COVID-19 (SOTO) COVID-19 Clin Com 11/18/21 11/18/21 11/18/21 12:18 12:18 12:18 MCV 94.1 MCH 32.3 MCHC 34.3 RDW 13.3 Plt Count 289 MPV 8.8 L Immature Gran % (Auto) 0.3 Neut % (Auto) 75.2 H Lymph % (Auto) 12.2 L [place] % (Auto) 10.6 Eos % (Auto) 1.3 Baso % (Auto) 0.4 Lymph # (Auto) 1.1 L [place] # (Auto) 1.0 Eos # (Auto) 0.1 Baso # (Auto) 0.0 Abs Immat Gran (auto) 0.03 Absolute Neuts (auto) 7.0 Absolute Nucleated RBC 0.000 Nucleated RBC % (auto) 0.0 D-Dimer High Sensitivty Anion Gap 15 Estim Creat Clear Calc 56.3 Estimated GFR > 60 POC Glucose Random Glucose 83 Lactic Acid 1.1 Calcium 8.9 D Total Bilirubin 0.6 AST 18 ALT 22 Alkaline Phosphatase 54 D Troponin I High Sens B-Natriuretic Peptide Total Protein 5.6 L Albumin 3.4 L Urine Color Urine Appearance Urine pH Ur Specific [place] Urine Protein Urine Glucose (UA) Urine Ketones Urine Blood Urine Nitrite Ur Leukocyte Esterase Urine RBC Urine WBC Ur Squamous Epith Cells Ur Renal Epithelial Cell Urine Bacteria Urine Yeast COVID-19 (SOTO) COVID-Beststudy 11/18/21 11/18/21 11/18/21 12:18 12:19 14:47 MCV MCH MCHC RDW Plt Count MPV Immature Gran % (Auto) Neut % (Auto) Lymph % (Auto) [place] % (Auto) Eos % (Auto) Baso % (Auto) Lymph # (Auto) [place] # (Auto) Eos # (Auto) Baso # (Auto) Abs Immat Gran (auto) Absolute Neuts (auto) Absolute Nucleated RBC Nucleated RBC % (auto) D-Dimer High Sensitivty Anion Gap Estim Creat Clear Calc Estimated GFR POC Glucose Random Glucose Lactic Acid Calcium Total Bilirubin AST ALT Alkaline Phosphatase Troponin I High Sens 440.1 H* D B-Natriuretic Peptide Total Protein Albumin Urine Color STRAW Urine Appearance TURBID Urine pH 7.0 Ur Specific [place] 1.020 Urine Protein 1+ H Urine Glucose (UA) 100 H Urine Ketones 15 Urine Blood 2+ H Urine Nitrite NEG Ur Leukocyte Esterase 3+ H Urine RBC 15-29 H Urine WBC TNTC H Ur Squamous Epith Cells 2+ Ur Renal Epithelial Cell 2+ Urine Bacteria NONE Urine Yeast 3+ COVID-19 (SOTO) Positive A COVID-19 Clin Com See Note 11/18/21 11/18/21 15:03 15:49 MCV MCH MCHC RDW Plt Count MPV Immature Gran % (Auto) Neut % (Auto) Lymph % (Auto) [place] % (Auto) Eos % (Auto) Baso % (Auto) Lymph # (Auto) [place] # (Auto) Eos # (Auto) Baso # (Auto) Abs Immat Gran (auto) Absolute Neuts (auto) Absolute Nucleated RBC Nucleated RBC % (auto) D-Dimer High Sensitivty Anion Gap Estim Creat Clear Calc Estimated GFR POC Glucose 142 H Random Glucose Lactic Acid Calcium Total Bilirubin AST ALT Alkaline Phosphatase Troponin I High Sens 374.8 H* B-Natriuretic Peptide Total Protein Albumin Urine Color Urine Appearance Urine pH Ur Specific [place] Urine Protein Urine Glucose (UA) Urine Ketones Urine Blood Urine Nitrite Ur Leukocyte Esterase Urine RBC Urine WBC Ur Squamous Epith Cells Ur Renal Epithelial Cell Urine Bacteria Urine Yeast COVID-19 (SOTO) COVID-19 Clin Com Impressions Abdomen/Pelvis CT 11/18/21 12:57 IMPRESSION: Severe bilateral hydronephrosis and ureteral dilatation down to the bladder. The bladder is well distended. Bladder outlet obstruction and secondary hydroureteronephrosis should be considered. Severe constipation and fecal impaction. Question mild stercoral colitis related to chronic obstruction of the distal colon. Diverticulosis. No evidence of diverticulitis. New small bilateral pleural effusions. Small gallstones in the gallbladder. Severe atherosclerotic disease. Fleischner guidelines were followed. Chest X-Ray 11/18/21 13:00 IMPRESSION: Prominent pulmonary hair suggestive of lymphadenopathy. Question volume loss to the left hemithorax. Question pleural-parenchymal disease at the lateral left lung base versus overlying heart and soft tissues Imaging Radiologist's Impressions: Impressions Abdomen/Pelvis CT 11/18/21 12:57 IMPRESSION: Severe bilateral hydronephrosis and ureteral dilatation down to the bladder. The bladder is well distended. Bladder outlet obstruction and secondary hydroureteronephrosis should be considered. Severe constipation and fecal impaction. Question mild stercoral colitis related to chronic obstruction of the distal colon. Diverticulosis. No evidence of diverticulitis. New small bilateral pleural effusions. Small gallstones in the gallbladder. Severe atherosclerotic disease. Fleischner guidelines were followed. Chest X-Ray 11/18/21 13:00 IMPRESSION: Prominent pulmonary hair suggestive of lymphadenopathy. Question volume loss to the left hemithorax. Question pleural-parenchymal disease at the lateral left lung base versus overlying heart and soft tissues Assessment and Plan (1) COVID-19: Status: Acute (2) Acute urinary retention: Status: Acute (3) Fecal impaction: Status: Acute (4) Colitis: Status: Acute (5) Non-ST elevated myocardial infarction: Status: Acute (6) UTI (urinary tract infection): Qualifiers: Hematuria presence: without hematuria Urinary tract infection type: acute cystitis Qualified Code(s): N30.00 - Acute cystitis without hematuria Status: Acute 81yo F with AF on rivaroxaban, hx VT, HFpEF, HTN, HLD, CAD, PFO, COPD, sarcoidosis who was recently admitted to this hospital 11/01/21-11/14/21 with weakness due to UTI and PNA, discharged home and presenting after not eating or drinking and found to be hypoxic, tachycardic, and tachypneic with Covid-19 infection, NSTEMI, UTI, hydroureteronephrosis with bladder outlet obstruction, and fecal impaction with stercoral colitis # acute hypoxic resp failure - [facility]. suppl O2, wean as tolerated, encourage awake proning # Covid-19 infection # COPD exacerbation - unvaccinated + high-risk for severe disease + hypoxia. will give remdesivir x5d + dexamethasone x10d + trend inflammatory markers + consult ID - albuterol inhalers - continue ICS/LABA inhaler # viral sepsis [tachycardia + tachypnea] - likely due to Covid-19 infection # NSTEMI - likely demand from tachycardia/Covid-19 but will give ASA + intensify statin # UTI - ceftriaxone, follow UCx/BCx # hydroureteronephrosis # bladder outlet obstruction - Mccarthy, Urology consult # stercoral colitis # fecal impaction - GoLytely # CAD - continue statin, rivaroxaban, carvedilol, lisinopril # HTN - continue carvedilol, lisinopril # pAF - continue carvedilol for rate control - anticoagulate with rivaroxaban # VTE ppx - rivaroxaban # code - full Quality Stroke Does the patient have a stroke diagnosis?: No VTE Prior VTE?: No VTE Risk Level:: Medical - moderate - high VTE Device Contraindication: N/A - Device Ordered VTE Drug Contraindication: N/A - Med Ordered
[2021-11-18 17:58] LABS: C Reactive Protein 4.48 mg/dL (< or = 0.50); Lactate Dehydrogenase 154 U/L (122-220)
[2021-11-18 18:18] LABS: Ferritin 339 ng/mL (10-250)
[2021-11-18 18:20] LABS: Procalcitonin 0.12 ng/mL
[2021-11-18] MEDS: PEG 3350/Na Sulf,Bicarb,Cl/KCL 4,000 ML SOLN.RECON 4000 ML PO (18:30)
[2021-11-18] MEDS: Atorvastatin Calcium 40 MG TABLET PO (18:30)
[2021-11-18] MEDS: dexAMETHasone sod phosphate 4 MG/ML VIAL 6 MG IVPUSH (18:30)
--- NOTE | 2021-11-18 19:09 | PC.NURSE ---
PT REFUSED DINNER WAS ABLE TO DRINK 1 CUP OF GO-LIGHTLY
[2021-11-18] MEDS: Remdesivir 200 MG in 0.9 % Sodium Chloride 210 ML 105 MG IV (20:44)
[2021-11-18] MEDS: Gabapentin 600 MG TABLET 1200 MG PO (20:59)
[2021-11-18] MEDS: carvediloL 12.5 MG TABLET PO (20:59)
[2021-11-18] MEDS: Albuterol Sulfate 90 MCG 8 GM INHALER 4 PUFF INHALE (21:04)
[2021-11-18 21:21] LABS: Glucose, Whole Blood 93 mg/dL (60-115)
--- NOTE | 2021-11-18 22:04 | PC.NURSE ---
PT WILL BE MOVED TO OVER FLOW AREA REPORT CALLED OVER TO RN.
--- NOTE | 2021-11-18 22:33 | PC.NURSE ---
PT MOVED TO ED OVER FLOW BY PCT VINOD REPORT CALLED AND GIVEN TO NURSING STAFF.
--- NOTE | 2021-11-18 23:19 | PC.NURSE ---
Dr Fraga aware of pt's hypotension with HR 73
[2021-11-19] VITALS (12 sets, daily range): BP systolic 89–154; BP diastolic 50–83; PULSE 66–109; RESP 16–22; TEMP 35.7–36.6; O2SAT 94–100
[2021-11-19] MEDS: Lactated Ringers 500 ML 999 ML IV (00:15)
--- NOTE | 2021-11-19 04:43 | PC.NURSE ---
Pt repositioned in bed. Pt awoke during repositioning/VS. Pt oriented to person and place, disoriented to time and situation. pt denies pain/discomfort. Pt bed in low locked position, rails raised, call werner within reach. Bed alarm active and audible.
[2021-11-19 04:46] LABS: Glucose, Whole Blood 152 mg/dL (60-115)
--- NOTE | 2021-11-19 05:13 | PC.NURSE ---
Addendum entered by Katty Arguello 11/19/21 05:30: Per Dr Fraga, day providers to be notified of lack of v/q scan and they will decide whether to order. Original Note: This RN reviewing pt's chart and notes a ddimer of 470, contrast media allergy and no order for v/q scan to r/o PE. This RN TT [place] to notify, and to clarify if pt should have v/q scan ordered. Awaiting reply/orders
[2021-11-19 07:44] LABS: Glucose, Whole Blood 137 mg/dL (60-115)
[2021-11-19 08:00] LABS: Hematocrit 31.4 % (37.0-47.0); Hemoglobin 10.4 g/dl (12.0-16.0); Mean Corpuscular HGB Conc 33.1 g/dl (31.0-35.0); Mean Corpuscular Hemoglobin 32.2 pg (27.0-33.0); Mean Corpuscular Volume 97.2 fL (80.0-98.0); Mean Platelet Volume 9.2 fL (9.4-12.3); Platelet Count 223 X10*3/uL (160-400); Red Blood Count 3.23 X10*6/uL (4.20-5.50); Red Cell Distribution Width 13.4 % (11.0-16.0); White Blood Count 4.7 X10*3/uL (4.8-10.8)
[2021-11-19] MEDS: Fluticasone/Vilanterol 200/25 BLST.W.DEV 1 PUFF INHALE (08:08)
[2021-11-19] MEDS: Albuterol Sulfate 90 MCG 8 GM INHALER 4 PUFF INHALE ×4 (08:08→21:13)
[2021-11-19 08:09] LABS: Estimated Average Glucose 131 mg/dL; Hemoglobin A1c % 6.2 %
[2021-11-19 08:23] LABS: Anion Gap 13 (12-20); Blood Urea Nitrogen 20 mg/dL (9-16); Calcium 8.1 mg/dL (8.4-10.2); Carbon Dioxide 29 mmol/L (22-29); Chloride 102 mmol/L (96-108); Creatinine Clr Calc Pharmacy 52.5; Estimated Glomerular Filt Rate > 60; Glucose Random 149 mg/dL (60-115); Potassium 4.2 mmol/L (3.3-5.1); Sodium 140 mmol/L (135-145)
[2021-11-19] MEDS: dexAMETHasone sod phosphate 4 MG/ML VIAL 6 MG IVPUSH (10:05)
[2021-11-19] MEDS: Aspirin 81 MG TAB.CHEW PO (10:06)
[2021-11-19] MEDS: Gabapentin 600 MG TABLET 1200 MG PO ×2 (10:06→20:44)
[2021-11-19] MEDS: lisinopriL 5 MG TABLET PO (10:06)
[2021-11-19] MEDS: Atorvastatin Calcium 40 MG TABLET PO (10:06)
[2021-11-19] MEDS: carvediloL 12.5 MG TABLET PO ×2 (10:06→20:44)
[2021-11-19] MEDS: Rivaroxaban 20 MG TABLET PO (10:08)
--- NOTE | 2021-11-19 11:48 | P.CONCA_ITS ---
History of Present Illness History of Present Illness Date of Service: 11/19/21 Chief complaint: covid 19,hypoxia, uti Narrative: This is a cardiology consultation regarding elevated troponins. It seems that she was recently hospital for UTI and pneumonia. Currently she has been readmitted with failure to thrive. She has also been found to be tachypneic, tachycardic and hypoxic. CT scan of the abdomen had shown fecal impaction. In this setting, troponins were elevated and hence we have been asked to see her. She is also COVID positive. However from a cardiac standpoint she is denying any symptoms at all. She was seen in the office last approximately 1 year ago. She has a history of nonischemic cardiomyopathy, atrial fibrillation, patent foramen ovale and hypertension. These have been appropriately managed. Review of Systems Review of Systems: Yes all other systems are reviewed and are negative Cardiovascular: Cardiovascular: Reports as per HPI, Reports no additional cardiovascular complaints, Denies acrocyanosis, Denies cool extremities, Denies painful fingertips, Denies chest pain, Denies chest pain at rest, Denies diaphoresis, Denies syncope, Denies irregular heart rhythm, Denies claudication, Denies leg edema, Denies lightheadedness, Denies palpitations and Denies dyspnea Respiratory: Respiratory: Denies dyspnea Neurologic: Denies syncope Endocrine: Endocrine: Denies palpitations PMFSH Past Medical History Medical History Cardiomyopathy COPD (chronic obstructive pulmonary disease) Coronary artery disease Diabetic nephropathy Diabetic neuropathy Essential hypertension Hypercholesterolemia Nonischemic cardiomyopathy Paroxysmal atrial fibrillation PFO (patent foramen ovale) Sarcoidosis Spinal stenosis of lumbar region Ventricular tachycardia Vitamin D deficiency Family History Family History Father CVD (cardiovascular disease) Mother Diabetes Surgical History Surgical History History of bladder surgery History of cardiac catheterization (~04/2016) History of cardioversion (~12/2016) History of hysterectomy Social History Social History Housing: Apartment Patient Tobacco Use Status: Former Tobacco user Advance Directives: Yes Advance Directives on File: Yes Advance Directives Date on File: 11/18/21 service: No Current occupational status: unemployed Meds Allergies Allergy/AdvReac Type Severity Reaction Status Date / Time Iodinated Contrast Media Allergy Severe ANAPHYLAXIS Verified 12/18/20 09:40 [IV Dye, Iodine Containing] shellfish derived Allergy Severe TREMORS, Verified 12/18/20 09:40 [SHELLFISH DERIVED] HALLUCINATIONS fluticasone [Advair Diskus] Allergy Unknown unk Verified 12/18/20 09:40 salmeterol [Advair Diskus] Allergy Unknown unk Verified 12/18/20 09:40 loratadine [From Claritin] AdvReac Mild NAUSEA & Verified 12/18/20 09:40 VOMITING Sea food Allergy Unknown itching Uncoded 12/18/20 09:40 Active Medications: Current Medications Acetaminophen (Acetaminophen 325 Mg Tablet) 650 mg PO Q6H PRN PRN Reason: Pain, Mild (Pain Scale 1-3) Albuterol Sulfate (Albuterol Sulfate 90 Mcg 8 Gm Inhaler) 4 puff INHALE RQ4H WHILE AWAKE [facility] Last Admin: 11/19/21 08:08 Dose: 4 puff Documented by: Albuterol Sulfate (Albuterol Sulfate 90 Mcg 8 Gm Inhaler) 4 puff INHALE Q2H PRN PRN Reason: shortness of breath or wheeze Aspirin (Aspirin 81 Mg Tab.Chew) 81 mg PO DAILY [facility] Last Admin: 11/19/21 10:06 Dose: 81 mg Documented by: Atorvastatin Calcium (Atorvastatin Calcium 40 Mg Tablet) 40 mg PO DAILY [facility] Last Admin: 11/19/21 10:06 Dose: 40 mg Documented by: Carvedilol (Carvedilol 12.5 Mg Tablet) 12.5 mg PO BID [facility]; Protocol Last Admin: 11/19/21 10:06 Dose: 12.5 mg Documented by: Dexamethasone Sodium Phosphate (Dexamethasone Sod Phosphate 4 Mg/Ml Vial) 6 mg IVPUSH DAILY [facility] Stop: 11/27/21 09:01 Last Admin: 11/19/21 10:05 Dose: 6 mg Documented by: Dextrose (Dextrose 50 % 25 Gm/50 Ml Vial) 25 gm IVPUSH Q15M PRN; Protocol PRN Reason: per Hypoglycemia Standing Ord. Fluticasone/Vilanterol (Fluticasone/Vilanterol 200/25 Blst.W.Dev) 1 puff INHALE RDAILY [facility] Last Admin: 11/19/21 08:08 Dose: 1 puff Documented by: Gabapentin (Gabapentin 600 Mg Tablet) 1,200 mg PO BID [facility] Last Admin: 11/19/21 10:06 Dose: 1,200 mg Documented by: Glucose (Glucose Gel 15 Gm Gel..Gram.) 15 gm PO Q15M PRN; Protocol PRN Reason: per Hypoglycemia Standing Ord. Ceftriaxone Sodium 1 gm/ (Sodium Chloride) 50 mls @ 100 mls/hr IV Q24H [facility] Remdesivir 100 mg/ Sodium (Chloride) 230 mls @ 115 mls/hr IV Q24H [facility] Stop: 11/22/21 22:59 Insulin Human Lispro (Insulin Lispro 100 Unit/Ml 3 Ml Vial) 0 unit SUBCUT QIDACHS [facility]; Protocol Last Admin: 11/19/21 07:39 Dose: Not Given Documented by: Lisinopril (Lisinopril 5 Mg Tablet) 5 mg PO DAILY [facility]; Protocol Last Admin: 11/19/21 10:06 Dose: 5 mg Documented by: Ondansetron HCl (Ondansetron Hcl 4 Mg/2 Ml Vial) 4 mg IVPUSH Q8H PRN PRN Reason: Nausea and Vomiting Rivaroxaban (Rivaroxaban 20 Mg Tablet) 20 mg PO DAILY [facility] Last Admin: 11/19/21 10:08 Dose: 20 mg Documented by: Sodium Chloride (0.9 % Sodium Chloride Flush 3 Ml Syringe) 3 ml IVFLUSH QSHIFT [facility] Last Admin: 11/19/21 09:53 Dose: Not Given Documented by: Home Medications Medication Instructions Recorded Confirmed Last Taken Type blood sugar diagnostic (OneTouch #10 ea 04/17/21 Unknown History Verio test strips) Physical Exam Vital Signs: Vital Signs: Last Vital Signs Temp 97.8 F 11/19/21 04:43 Pulse 66 11/19/21 08:43 Resp 18 11/19/21 08:43 BP 147/57 H 11/19/21 08:43 Pulse Ox 100 11/19/21 08:43 Oxygen Flow Rate 3 11/18/21 11:53 BMI result Body Mass Index 25.9 Const: General: no acute distress HENMT: Other: Unremarkable Neck: Neck: Yes normal visual inspection Chest: Chest palpation & inspection: normal inspection of the chest Resp: Auscultation: no crackles and no wheezes Cardio: Palpation: normal PMI Heart sounds: S1 normal heart sound present, S2 normal heart sound present, no gallops, no murmurs and no rubs GI: Palpation (GI): Soft to palpation Back/Spine/Pelvis: Other: unremarkable Skin: Lesions: other Neuro: Cranial nerves: Yes Other cranial nerve findings present Extrem: General: Yes other Psych: Mental Status: other Objective Labs and Meds Result diagrams: 11/19/21 07:24 11/19/21 07:24 Lab results: Laboratory Results - last 24 hr 11/18/21 11/18/21 11/18/21 12:13 12:17 12:17 WBC RBC Hgb Hct MCV MCH MCHC RDW Plt Count MPV Immature Gran % (Auto) Neut % (Auto) Lymph % (Auto) [place] % (Auto) Eos % (Auto) Baso % (Auto) Lymph # (Auto) [place] # (Auto) Eos # (Auto) Baso # (Auto) Abs Immat Gran (auto) Absolute Neuts (auto) Absolute Nucleated RBC Nucleated RBC % (auto) D-Dimer High Sensitivty 470 Sodium Potassium Chloride Carbon Dioxide Anion Gap BUN Creatinine Estim Creat Clear Calc Estimated GFR POC Glucose 77 Random Glucose Estimat Average Glucose Hemoglobin A1c % Lactic Acid Calcium Ferritin Total Bilirubin AST ALT Alkaline Phosphatase Lactate Dehydrogenase Total Creatine Kinase Troponin I High Sens C-Reactive Protein B-Natriuretic Peptide 80 Total Protein Albumin Procalcitonin Urine Color Urine Appearance Urine pH Ur Specific [place] Urine Protein Urine Glucose (UA) Urine Ketones Urine Blood Urine Nitrite Ur Leukocyte Esterase Urine RBC Urine WBC Ur Squamous Epith Cells Ur Renal Epithelial Cell Urine Bacteria Urine Yeast COVID-19 ([facility]OTO) COVID-19 Clin Com 11/18/21 11/18/21 11/18/21 12:18 12:18 12:18 WBC 9.3 RBC 3.87 L Hgb 12.5 Hct 36.4 L MCV 94.1 MCH 32.3 MCHC 34.3 RDW 13.3 Plt Count 289 MPV 8.8 L Immature Gran % (Auto) 0.3 Neut % (Auto) 75.2 H Lymph % (Auto) 12.2 L [place] % (Auto) 10.6 Eos % (Auto) 1.3 Baso % (Auto) 0.4 Lymph # (Auto) 1.1 L [place] # (Auto) 1.0 Eos # (Auto) 0.1 Baso # (Auto) 0.0 Abs Immat Gran (auto) 0.03 Absolute Neuts (auto) 7.0 Absolute Nucleated RBC 0.000 Nucleated RBC % (auto) 0.0 D-Dimer High Sensitivty Sodium 138 Potassium 3.7 D Chloride 99 Carbon Dioxide 28 Anion Gap 15 BUN 14 Creatinine 0.69 Estim Creat Clear Calc 56.3 Estimated GFR > 60 POC Glucose Random Glucose 83 Estimat Average Glucose Hemoglobin A1c % Lactic Acid 1.1 Calcium 8.9 D Ferritin 339 H Total Bilirubin 0.6 AST 18 ALT 22 Alkaline Phosphatase 54 D Lactate Dehydrogenase 154 Total Creatine Kinase 30 Troponin I High Sens C-Reactive Protein 4.48 H B-Natriuretic Peptide Total Protein 5.6 L Albumin 3.4 L Procalcitonin Urine Color Urine Appearance Urine pH Ur Specific [place] Urine Protein Urine Glucose (UA) Urine Ketones Urine Blood Urine Nitrite Ur Leukocyte Esterase Urine RBC Urine WBC Ur Squamous Epith Cells Ur Renal Epithelial Cell Urine Bacteria Urine Yeast COVID-19 ([facility]OTO) COVID-[place] 11/18/21 11/18/21 11/18/21 12:18 12:18 12:19 WBC RBC Hgb Hct MCV MCH MCHC RDW Plt Count MPV Immature Gran % (Auto) Neut % (Auto) Lymph % (Auto) [place] % (Auto) Eos % (Auto) Baso % (Auto) Lymph # (Auto) [place] # (Auto) Eos # (Auto) Baso # (Auto) Abs Immat Gran (auto) Absolute Neuts (auto) Absolute Nucleated RBC Nucleated RBC % (auto) D-Dimer High Sensitivty Sodium Potassium Chloride Carbon Dioxide Anion Gap BUN Creatinine Estim Creat Clear Calc Estimated GFR POC Glucose Random Glucose Estimat Average Glucose Hemoglobin A1c % Lactic Acid Calcium Ferritin Total Bilirubin AST ALT Alkaline Phosphatase Lactate Dehydrogenase Total Creatine Kinase Troponin I High Sens 440.1 H* D C-Reactive Protein B-Natriuretic Peptide Total Protein Albumin Procalcitonin 0.12 Urine Color Urine Appearance Urine pH Ur Specific [place] Urine Protein Urine Glucose (UA) Urine Ketones Urine Blood Urine Nitrite Ur Leukocyte Esterase Urine RBC Urine WBC Ur Squamous Epith Cells Ur Renal Epithelial Cell Urine Bacteria Urine Yeast COVID-19 (SOTO) Positive A COVID-19 [employer] See Note 11/18/21 11/18/21 11/18/21 14:47 15:03 15:49 WBC RBC Hgb Hct MCV MCH MCHC RDW Plt Count MPV Immature Gran % (Auto) Neut % (Auto) Lymph % (Auto) [place] % (Auto) Eos % (Auto) Baso % (Auto) Lymph # (Auto) [place] # (Auto) Eos # (Auto) Baso # (Auto) Abs Immat Gran (auto) Absolute Neuts (auto) Absolute Nucleated RBC Nucleated RBC % (auto) D-Dimer High Sensitivty Sodium Potassium Chloride Carbon Dioxide Anion Gap BUN Creatinine Estim Creat Clear Calc Estimated GFR POC Glucose 142 H Random Glucose Estimat Average Glucose Hemoglobin A1c % Lactic Acid Calcium Ferritin Total Bilirubin AST ALT Alkaline Phosphatase Lactate Dehydrogenase Total Creatine Kinase Troponin I High Sens 374.8 H* C-Reactive Protein B-Natriuretic Peptide Total Protein Albumin Procalcitonin Urine Color STRAW Urine Appearance TURBID Urine pH 7.0 Ur Specific [place] 1.020 Urine Protein 1+ H Urine Glucose (UA) 100 H Urine Ketones 15 Urine Blood 2+ H Urine Nitrite NEG Ur Leukocyte Esterase 3+ H Urine RBC 15-29 H Urine WBC TNTC H Ur Squamous Epith Cells 2+ Ur Renal Epithelial Cell 2+ Urine Bacteria NONE Urine Yeast 3+ COVID-19 ([facility]OTO) [employer] 11/18/21 11/19/21 11/19/21 21:01 04:34 07:24 WBC RBC Hgb Hct MCV MCH MCHC RDW Plt Count MPV Immature Gran % (Auto) Neut % (Auto) Lymph % (Auto) [place] % (Auto) Eos % (Auto) Baso % (Auto) Lymph # (Auto) [place] # (Auto) Eos # (Auto) Baso # (Auto) Abs Immat Gran (auto) Absolute Neuts (auto) Absolute Nucleated RBC Nucleated RBC % (auto) D-Dimer High Sensitivty Sodium Potassium Chloride Carbon Dioxide Anion Gap BUN Creatinine Estim Creat Clear Calc Estimated GFR POC Glucose 93 152 H Random Glucose Estimat Average Glucose 131 Hemoglobin A1c % 6.2 Lactic Acid Calcium Ferritin Total Bilirubin AST ALT Alkaline Phosphatase Lactate Dehydrogenase Total Creatine Kinase Troponin I High Sens C-Reactive Protein B-Natriuretic Peptide Total Protein Albumin Procalcitonin Urine Color Urine Appearance Urine pH Ur Specific [place] Urine Protein Urine Glucose (UA) Urine Ketones Urine Blood Urine Nitrite Ur Leukocyte Esterase Urine RBC Urine WBC Ur Squamous Epith Cells Ur Renal Epithelial Cell Urine Bacteria Urine Yeast COVID-19 ([facility]) [employer]elebration [employer] 11/19/21 11/19/21 11/19/21 07:24 07:24 07:37 WBC 4.7 L RBC 3.23 L Hgb 10.4 L Hct 31.4 L MCV 97.2 MCH 32.2 MCHC 33.1 RDW 13.4 Plt Count 223 MPV 9.2 L Immature Gran % (Auto) Neut % (Auto) Lymph % (Auto) [place] % (Auto) Eos % (Auto) Baso % (Auto) Lymph # (Auto) [place] # (Auto) Eos # (Auto) Baso # (Auto) Abs Immat Gran (auto) Absolute Neuts (auto) Absolute Nucleated RBC 0.000 Nucleated RBC % (auto) 0.0 D-Dimer High Sensitivty Sodium 140 Potassium 4.2 Chloride 102 Carbon Dioxide 29 Anion Gap 13 BUN 20 H Creatinine 0.74 Estim Creat Clear Calc 52.5 Estimated GFR > 60 POC Glucose 137 H Random Glucose 149 H Estimat Average Glucose Hemoglobin A1c % Lactic Acid Calcium 8.1 L D Ferritin Total Bilirubin AST ALT Alkaline Phosphatase Lactate Dehydrogenase Total Creatine Kinase Troponin I High Sens C-Reactive Protein B-Natriuretic Peptide Total Protein Albumin Procalcitonin Urine Color Urine Appearance Urine pH Ur Specific [place] Urine Protein Urine Glucose (UA) Urine Ketones Urine Blood Urine Nitrite Ur Leukocyte Esterase Urine RBC Urine WBC Ur Squamous Epith Cells Ur Renal Epithelial Cell Urine Bacteria Urine Yeast COVID-19 (SOTO) COVID-19 Clin Com ECG Interpretation: EKG today shows sinus tachycardia, 123/Min; rightward axis; nonspecific ST-T changes. Imaging Radiologist's impression: Impressions Abdomen/Pelvis CT 11/18/21 12:57 IMPRESSION: Severe bilateral hydronephrosis and ureteral dilatation down to the bladder. The bladder is well distended. Bladder outlet obstruction and secondary hydroureteronephrosis should be considered. Severe constipation and fecal impaction. Question mild stercoral colitis related to chronic obstruction of the distal colon. Diverticulosis. No evidence of diverticulitis. New small bilateral pleural effusions. Small gallstones in the gallbladder. Severe atherosclerotic disease. Fleischner guidelines were followed. Chest X-Ray 11/18/21 13:00 IMPRESSION: Prominent pulmonary hair suggestive of lymphadenopathy. Question volume loss to the left hemithorax. Question pleural-parenchymal disease at the lateral left lung base versus overlying heart and soft tissues Assessment and Plan (1) Non-ST elevated myocardial infarction: Status: Acute (2) COVID-19: Status: Acute (3) Acute urinary retention: Status: Acute (4) Fecal impaction: Status: Acute (5) Paroxysmal atrial fibrillation: Status: Acute (6) Nonischemic cardiomyopathy: Status: Acute Troponins are 440 followed by 374. In October, they were 22 and 28. Based on our previous notes, last LVEF was 50-55%. In the past, as low as 35- 40%. Cardiac catheterization from 2016 with mild diffuse CAD. Overall, troponin leak seems to be demand related type 2 NSTEMI. Do not believe this is an acute plaque rupture type presentation. She is already on anticoagulation at home with Xarelto. That may be continued. Otherwise, can remain on beta- blockers without changes. Procedures Date of Service Date of Service: 11/19/21
--- NOTE | 2021-11-19 12:52 | P.PNIM_ITS ---
Subjective Subjective Date of Service: 11/19/21 Interval History: Resting comfortably offers no acute complaints, denies abdominal pain no nausea, no vomiting, Mccarthy with cloudy urine with pus, admits to large bowel movement last night. Review of Systems Review of Systems: Yes all other systems are reviewed and are negative Physical Exam Vital Signs: Vital Signs: Last Vital Signs Temp 97.8 F 11/19/21 04:43 Pulse 66 11/19/21 12:31 Resp 16 11/19/21 12:31 BP 130/61 11/19/21 12:31 Pulse Ox 94 11/19/21 12:31 Oxygen Flow Rate 3 11/18/21 11:53 BMI result Body Mass Index 25.9 Gen: No acute distress HEENT: sclera anicteric, moist mucus membranes Neck: supple,no jvd Lungs: diminished throughout Heart: Regular rate rhythm Abd: soft, non tender, bowel sounds audible Ext: no edema Skin: warm/well-perfused Neuro:awake alert speech clear,moving all extremities Psych: impaired insight Objective Data Active Medications Acetaminophen (Acetaminophen 325 Mg Tablet) 650 mg PO Q6H PRN PRN Reason: Pain, Mild (Pain Scale 1-3) Albuterol Sulfate (Albuterol Sulfate 90 Mcg 8 Gm Inhaler) 4 puff INHALE RQ4H WHILE AWAKE [facility] Last Admin: 11/19/21 08:08 Dose: 4 puff Documented by: JAXON Albuterol Sulfate (Albuterol Sulfate 90 Mcg 8 Gm Inhaler) 4 puff INHALE Q2H PRN PRN Reason: shortness of breath or wheeze Aspirin (Aspirin 81 Mg Tab.Chew) 81 mg PO DAILY [facility] Last Admin: 11/19/21 10:06 Dose: 81 mg Documented by: ZAIRE Atorvastatin Calcium (Atorvastatin Calcium 40 Mg Tablet) 40 mg PO DAILY [facility] Last Admin: 11/19/21 10:06 Dose: 40 mg Documented by: ZAIRE Carvedilol (Carvedilol 12.5 Mg Tablet) 12.5 mg PO BID [facility]; Protocol Last Admin: 11/19/21 10:06 Dose: 12.5 mg Documented by: ZAIRE Dexamethasone Sodium Phosphate (Dexamethasone Sod Phosphate 4 Mg/Ml Vial) 6 mg IVPUSH DAILY [facility] Stop: 11/27/21 09:01 Last Admin: 11/19/21 10:05 Dose: 6 mg Documented by: ZAIRE Dextrose (Dextrose 50 % 25 Gm/50 Ml Vial) 25 gm IVPUSH Q15M PRN; Protocol PRN Reason: per Hypoglycemia Standing Ord. Fluticasone/Vilanterol (Fluticasone/Vilanterol 200/25 Blst.W.Dev) 1 puff INHALE RDAILY [facility] Last Admin: 11/19/21 08:08 Dose: 1 puff Documented by: JAXON Gabapentin (Gabapentin 600 Mg Tablet) 1,200 mg PO BID [facility] Last Admin: 11/19/21 10:06 Dose: 1,200 mg Documented by: ZAIRE Glucose (Glucose Gel 15 Gm Gel..Gram.) 15 gm PO Q15M PRN; Protocol PRN Reason: per Hypoglycemia Standing Ord. Ceftriaxone Sodium 1 gm/ (Sodium Chloride) 50 mls @ 100 mls/hr IV Q24H [facility] Remdesivir 100 mg/ Sodium (Chloride) 230 mls @ 115 mls/hr IV Q24H [facility] Stop: 11/22/21 22:59 Insulin Human Lispro (Insulin Lispro 100 Unit/Ml 3 Ml Vial) 0 unit SUBCUT QIDACHS [facility]; Protocol Last Admin: 11/19/21 07:39 Dose: Not Given Documented by: ZAIRE Non-Admin Reason: No Insulin Coverage Lisinopril (Lisinopril 5 Mg Tablet) 5 mg PO DAILY [facility]; Protocol Last Admin: 11/19/21 10:06 Dose: 5 mg Documented by: ZAIRE Ondansetron HCl (Ondansetron Hcl 4 Mg/2 Ml Vial) 4 mg IVPUSH Q8H PRN PRN Reason: Nausea and Vomiting Rivaroxaban (Rivaroxaban 20 Mg Tablet) 20 mg PO DAILY [facility] Last Admin: 11/19/21 10:08 Dose: 20 mg Documented by: ZAIRE Sodium Chloride (0.9 % Sodium Chloride Flush 3 Ml Syringe) 3 ml IVFLUSH QSHIFT [facility] Last Admin: 11/19/21 09:53 Dose: Not Given Documented by: ZAIRE Non-Admin Reason: IV Running Labs CBC & Chem 7: 11/19/21 07:24 11/19/21 07:24 Labs: Laboratory Results - last 24 hr 11/18/21 11/18/21 11/18/21 12:17 12:18 12:18 MCV MCH MCHC RDW Plt Count MPV Absolute Nucleated RBC Nucleated RBC % (auto) Anion Gap Estim Creat Clear Calc Estimated GFR POC Glucose Random Glucose Estimat Average Glucose Hemoglobin A1c % Calcium Ferritin 339 H Lactate Dehydrogenase 154 Total Creatine Kinase 30 Troponin I High Sens 440.1 H* D C-Reactive Protein 4.48 H B-Natriuretic Peptide 80 Procalcitonin Urine Color Urine Appearance Urine pH Ur Specific [place] Urine Protein Urine Glucose (UA) Urine Ketones Urine Blood Urine Nitrite Ur Leukocyte Esterase Urine RBC Urine WBC Ur Squamous Epith Cells Ur Renal Epithelial Cell Urine Bacteria Urine Yeast COVID-19 ([facility]) COVID-19 [employer] 11/18/21 11/18/21 11/18/21 12:18 12:19 14:47 MCV MCH MCHC RDW Plt Count MPV Absolute Nucleated RBC Nucleated RBC % (auto) Anion Gap Estim Creat Clear Calc Estimated GFR POC Glucose Random Glucose Estimat Average Glucose Hemoglobin A1c % Calcium Ferritin Lactate Dehydrogenase Total Creatine Kinase Troponin I High Sens C-Reactive Protein B-Natriuretic Peptide Procalcitonin 0.12 Urine Color STRAW Urine Appearance TURBID Urine pH 7.0 Ur Specific [place] 1.020 Urine Protein 1+ H Urine Glucose (UA) 100 H Urine Ketones 15 Urine Blood 2+ H Urine Nitrite NEG Ur Leukocyte Esterase 3+ H Urine RBC 15-29 H Urine WBC TNTC H Ur Squamous Epith Cells 2+ Ur Renal Epithelial Cell 2+ Urine Bacteria NONE Urine Yeast 3+ COVID-19 ([facility]OTO) Positive A COVID-19 [employer] See Note 11/18/21 11/18/21 11/18/21 15:03 15:49 21:01 MCV MCH MCHC RDW Plt Count MPV Absolute Nucleated RBC Nucleated RBC % (auto) Anion Gap Estim Creat Clear Calc Estimated GFR POC Glucose 142 H 93 Random Glucose Estimat Average Glucose Hemoglobin A1c % Calcium Ferritin Lactate Dehydrogenase Total Creatine Kinase Troponin I High Sens 374.8 H* C-Reactive Protein B-Natriuretic Peptide Procalcitonin Urine Color Urine Appearance Urine pH Ur Specific [place] Urine Protein Urine Glucose (UA) Urine Ketones Urine Blood Urine Nitrite Ur Leukocyte Esterase Urine RBC Urine WBC Ur Squamous Epith Cells Ur Renal Epithelial Cell Urine Bacteria Urine Yeast COVID-19 ([facility]) COVID-19 [employer] Com 11/19/21 11/19/21 11/19/21 04:34 07:24 07:24 MCV 97.2 MCH 32.2 MCHC 33.1 RDW 13.4 Plt Count 223 MPV 9.2 L Absolute Nucleated RBC 0.000 Nucleated RBC % (auto) 0.0 Anion Gap Estim Creat Clear Calc Estimated GFR POC Glucose 152 H Random Glucose Estimat Average Glucose 131 Hemoglobin A1c % 6.2 Calcium Ferritin Lactate Dehydrogenase Total Creatine Kinase Troponin I High Sens C-Reactive Protein B-Natriuretic Peptide Procalcitonin Urine Color Urine Appearance Urine pH Ur Specific [place] Urine Protein Urine Glucose (UA) Urine Ketones Urine Blood Urine Nitrite Ur Leukocyte Esterase Urine RBC Urine WBC Ur Squamous Epith Cells Ur Renal Epithelial Cell Urine Bacteria Urine Yeast COVID-19 ([facility]) COVID-19 Clin Com 11/19/21 11/19/21 07:24 07:37 MCV MCH MCHC RDW Plt Count MPV Absolute Nucleated RBC Nucleated RBC % (auto) Anion Gap 13 Estim Creat Clear Calc 52.5 Estimated GFR > 60 POC Glucose 137 H Random Glucose 149 H Estimat Average Glucose Hemoglobin A1c % Calcium 8.1 L D Ferritin Lactate Dehydrogenase Total Creatine Kinase Troponin I High Sens C-Reactive Protein B-Natriuretic Peptide Procalcitonin Urine Color Urine Appearance Urine pH Ur Specific [place] Urine Protein Urine Glucose (UA) Urine Ketones Urine Blood Urine Nitrite Ur Leukocyte Esterase Urine RBC Urine WBC Ur Squamous Epith Cells Ur Renal Epithelial Cell Urine Bacteria Urine Yeast COVID-19 ([facility]) COVID-19 Clin Com Microbiology Microbiology Results: Microbiology 11/18/21 Unknown Urine Culture - Preliminary Urine Catheterized - Mccarthy Catheter Culture in progress. Assessment and Plan (1) Fecal impaction: Status: Acute (2) Acute urinary retention: Status: Acute (3) COVID-19: Status: Acute (4) Colitis: Status: Acute (5) Non-ST elevated myocardial infarction: Status: Acute (6) UTI (urinary tract infection): Status: Acute Assessment and Plan: 81yo F with AF on rivaroxaban, hx VT, HFpEF, HTN, HLD, CAD, PFO, COPD, sarcoidosis who was recently admitted to this hospital 11/01/21-11/14/21 with weakness due to UTI and PNA, discharged home and presenting after not eating or drinking and found to be hypoxic, tachycardic, and tachypneic with Covid-19 infection, NSTEMI, UTI, hydroureteronephrosis with bladder outlet obstruction, and fecal impaction with stercoral colitis # acute hypoxic resp failure - hypoxia resolved likely due to COVID and COPD exacerbation # Covid-19 infection # COPD exacerbation - unvaccinated + high-risk for severe disease ,hypoxia resolved on remdesivir day 2/5 + dexamethasone x10d Await ID input, continue albuterol inhalers and ICS/LABA inhaler # viral sepsis - symptoms of sepsis tachycardia and tachypnea resolved # NSTEMI - likely type 2 demand related from tachycardia/Covid-19 continue ASA + beta- blockers and statin seen by Cardiology they agree with current treatment # UTI - noted to have cloudy urine with pus, continue ceftriaxone, follow UCx/BCx # hydroureteronephrosis # bladder outlet obstruction, Mccarthy draining cloudy urine await Urology input # stercoral colitis # had large bowel movement, continue bowel meds # CAD - continue statin, rivaroxaban, carvedilol, lisinopril # HTN - continue carvedilol, lisinopril # pAF - continue carvedilol for rate control, anticoagulate with rivaroxaban # VTE ppx - rivaroxaban # code - full Quality Stroke Does the patient have a stroke diagnosis?: No VTE Prior VTE?: No VTE Risk Level:: Medical - moderate - high VTE Device Contraindication: N/A - Device Ordered VTE Drug Contraindication: N/A - Med Ordered
--- NOTE | 2021-11-19 13:01 | PC.NURSE ---
Pt Alert, oriented to name but confused otherwise. Keeps stating we did the wrong surgery. Medicated as per MAR orders, Puss noted in MD cintia aware and at bedside.
[2021-11-19 13:55] LABS: Glucose, Whole Blood 103 mg/dL (60-115)
--- NOTE | 2021-11-19 15:24 | PM.UROCN ---
History of Present Illness Consult details Consult date: 11/19/21 Narrative: Jaja is an older female. She is a patient of Dr. Prince. Admit with UTI and weakness Found on imaging to have bilateral hydronephrosis and urinary retention Mccarthy catheter placed Urine clear WBC 4.6, hemoglobin 6.2 UA with positive leukocytes but negative nitrites Culture pending Creatinine 0.7 which is the lowest it has been in 3 months Repeat imaging tomorrow with ultrasound to see if hydronephrosis resolved Review of Systems Constitutional: Constitutional: Reports as per HPI and Reports no additional constitutional complaints Cardiovascular: Cardiovascular: Reports as per HPI and Reports no additional cardiovascular complaints Respiratory: Respiratory: Reports as per HPI and Reports no additional respiratory complaints Gastrointestinal: Gastrointestinal: Reports as per HPI and Reports no additional gastrointestinal complaints Genitourinary: Genitourinary: Reports as per HPI Musculoskeletal: Musculoskeletal: Reports no additional musculoskeletal complaints and Reports as per HPI Neurologic: Reports system reviewed and no additional complaints, except as documented and Reports as per HPI PMFSH Past Medical History Medical History Cardiomyopathy COPD (chronic obstructive pulmonary disease) Coronary artery disease Diabetic nephropathy Diabetic neuropathy Essential hypertension Hypercholesterolemia Nonischemic cardiomyopathy Paroxysmal atrial fibrillation PFO (patent foramen ovale) Sarcoidosis Spinal stenosis of lumbar region Ventricular tachycardia Vitamin D deficiency Family History Family History Father CVD (cardiovascular disease) Mother Diabetes Surgical History Surgical History History of bladder surgery History of cardiac catheterization (~04/2016) History of cardioversion (~12/2016) History of hysterectomy Social History Social History Housing: Apartment Patient Tobacco Use Status: Former Tobacco user Advance Directives: Yes Advance Directives on File: Yes Advance Directives Date on File: 11/18/21 service: No Current occupational status: unemployed Meds Allergies Allergy/AdvReac Type Severity Reaction Status Date / Time Iodinated Contrast Media Allergy Severe ANAPHYLAXIS Verified 12/18/20 09:40 [IV Dye, Iodine Containing] shellfish derived Allergy Severe TREMORS, Verified 12/18/20 09:40 [SHELLFISH DERIVED] HALLUCINATIONS fluticasone [Advair Diskus] Allergy Unknown unk Verified 12/18/20 09:40 salmeterol [Advair Diskus] Allergy Unknown unk Verified 12/18/20 09:40 loratadine [From Claritin] AdvReac Mild NAUSEA & Verified 12/18/20 09:40 VOMITING Sea food Allergy Unknown itching Uncoded 12/18/20 09:40 Active Medications: Current Medications Acetaminophen (Acetaminophen 325 Mg Tablet) 650 mg PO Q6H PRN PRN Reason: Pain, Mild (Pain Scale 1-3) Albuterol Sulfate (Albuterol Sulfate 90 Mcg 8 Gm Inhaler) 4 puff INHALE RQ4H WHILE AWAKE [facility] Last Admin: 11/19/21 13:09 Dose: 4 puff Documented by: Albuterol Sulfate (Albuterol Sulfate 90 Mcg 8 Gm Inhaler) 4 puff INHALE Q2H PRN PRN Reason: shortness of breath or wheeze Aspirin (Aspirin 81 Mg Tab.Chew) 81 mg PO DAILY [facility] Last Admin: 11/19/21 10:06 Dose: 81 mg Documented by: Atorvastatin Calcium (Atorvastatin Calcium 40 Mg Tablet) 40 mg PO DAILY [facility] Last Admin: 11/19/21 10:06 Dose: 40 mg Documented by: Carvedilol (Carvedilol 12.5 Mg Tablet) 12.5 mg PO BID [facility]; Protocol Last Admin: 11/19/21 10:06 Dose: 12.5 mg Documented by: Dexamethasone Sodium Phosphate (Dexamethasone Sod Phosphate 4 Mg/Ml Vial) 6 mg IVPUSH DAILY [facility] Stop: 11/27/21 09:01 Last Admin: 11/19/21 10:05 Dose: 6 mg Documented by: Dextrose (Dextrose 50 % 25 Gm/50 Ml Vial) 25 gm IVPUSH Q15M PRN; Protocol PRN Reason: per Hypoglycemia Standing Ord. Fluticasone/Vilanterol (Fluticasone/Vilanterol 200/25 Blst.W.Dev) 1 puff INHALE RDAILY [facility] Last Admin: 11/19/21 08:08 Dose: 1 puff Documented by: Gabapentin (Gabapentin 600 Mg Tablet) 1,200 mg PO BID [facility] Last Admin: 11/19/21 10:06 Dose: 1,200 mg Documented by: Glucose (Glucose Gel 15 Gm Gel..Gram.) 15 gm PO Q15M PRN; Protocol PRN Reason: per Hypoglycemia Standing Ord. Ceftriaxone Sodium 1 gm/ (Sodium Chloride) 50 mls @ 100 mls/hr IV Q24H [facility] Remdesivir 100 mg/ Sodium (Chloride) 230 mls @ 115 mls/hr IV Q24H [facility] Stop: 11/22/21 22:59 Insulin Human Lispro (Insulin Lispro 100 Unit/Ml 3 Ml Vial) 0 unit SUBCUT QIDACHS [facility]; Protocol Last Admin: 11/19/21 13:36 Dose: Not Given Documented by: Lisinopril (Lisinopril 5 Mg Tablet) 5 mg PO DAILY [facility]; Protocol Last Admin: 11/19/21 10:06 Dose: 5 mg Documented by: Ondansetron HCl (Ondansetron Hcl 4 Mg/2 Ml Vial) 4 mg IVPUSH Q8H PRN PRN Reason: Nausea and Vomiting Rivaroxaban (Rivaroxaban 20 Mg Tablet) 20 mg PO DAILY [facility] Last Admin: 11/19/21 10:08 Dose: 20 mg Documented by: Sodium Chloride (0.9 % Sodium Chloride Flush 3 Ml Syringe) 3 ml IVFLUSH QSHIFT [facility] Last Admin: 11/19/21 09:53 Dose: Not Given Documented by: Home Medications Medication Instructions Recorded Confirmed Last Taken Type blood sugar diagnostic (OneTouch #10 ea 04/17/21 Unknown History Verio test strips) Physical Exam Vital Signs: Vital Signs: Last Vital Signs Temp 97.8 F 11/19/21 04:43 Pulse 68 11/19/21 13:11 Resp 18 11/19/21 13:11 BP 130/61 11/19/21 12:31 Pulse Ox 94 11/19/21 12:31 Oxygen Flow Rate 3 11/18/21 11:53 BMI result Body Mass Index 25.9 Const: General: cooperative, healthy appearing, comfortable and no acute distress Orientation/consciousness: patient oriented x3 HENMT: Face and sinus: Yes normal facial exam Mouth: moist mucous membranes Neck: Neck: Yes normal visual inspection, Yes full ROM and Yes trachea midline Chest: Chest palpation & inspection: normal inspection of the chest Resp: Effort & Inspection: normal respiratory effort, able to speak in complete sentences and no respiratory distress GI: Inspection: Yes normal to inspection Back/Spine/Pelvis: Cervical Spine: normal cervical lordosis Thoracic/Lumbar Spine: thoracic and lumbar spine normal to inspection Skin: General skin exam: no rashes or lesions noted Neuro: General: patient oriented x3, tone normal and moves all extremities Extrem: General: Yes normal to inspection and Yes capillary refill normal Results Labs Result diagrams: 11/19/21 07:24 11/19/21 07:24 Labs: Abnormal lab results 11/18/21 11/18/21 11/19/21 Range/Units 12:18 15:49 04:34 WBC (4.8-10.8) X10*3/uL RBC (4.20-5.50) X10*6/uL Hgb (12.0-16.0) g/dl Hct (37.0-47.0) % MPV (9.4-12.3) fL BUN (9-16) mg/dL POC Glucose 152 H (60-115) mg/dL Random Glucose (60-115) mg/dL Calcium (8.4-10.2) mg/dL Ferritin 339 H (10-250) ng/mL Troponin I High Sens 374.8 H* (<3.5-17.0) ng/L C-Reactive Protein 4.48 H (< or = 0.50) mg/dL 11/19/21 11/19/21 11/19/21 Range/Units 07:24 07:24 07:37 WBC 4.7 L (4.8-10.8) X10*3/uL RBC 3.23 L (4.20-5.50) X10*6/uL Hgb 10.4 L (12.0-16.0) g/dl Hct 31.4 L (37.0-47.0) % MPV 9.2 L (9.4-12.3) fL BUN 20 H (9-16) mg/dL POC Glucose 137 H (60-115) mg/dL Random Glucose 149 H (60-115) mg/dL Calcium 8.1 L D (8.4-10.2) mg/dL Ferritin (10-250) ng/mL Troponin I High Sens (<3.5-17.0) ng/L C-Reactive Protein (< or = 0.50) mg/dL Short CBC 11/19/21 Range/Units 07:24 WBC 4.7 L (4.8-10.8) X10*3/uL Hgb 10.4 L (12.0-16.0) g/dl Hct 31.4 L (37.0-47.0) % Plt Count 223 (160-400) X10*3/uL BMP 11/19/21 07:24 Sodium 140 Potassium 4.2 Chloride 102 Carbon Dioxide 29 BUN 20 H Creatinine 0.74 Calcium 8.1 L D Cardiac Enzymes 11/18/21 Range/Units 12:18 Total Creatine Kinase 30 (26-140) U/L Urine 11/18/21 Range/Units 14:47 Urine Color STRAW Urine Appearance TURBID Urine pH 7.0 (5.0-8.0) Ur Specific [place] 1.020 (1.005-1.025) Urine Protein 1+ H (NEG-TRACE) MG/DL Urine Glucose (UA) 100 H (NEG) MG/DL All other labs normal. Assessment and Plan (1) Acute urinary retention: Status: Acute (2) Type 2 diabetes mellitus with hyperglycemia: Status: Acute (3) Hydronephrosis: Status: Acute Plan for repeat imaging to see if hydronephrosis resolved Procedures Date of Service Date of Service: 11/19/21
[2021-11-19] MEDS: cefTRIAXone sodium 1 GM in 0.9 % Sodium Chloride 50 ML IV (17:08)
[2021-11-19] MEDS: 0.9 % Sodium Chloride Flush 3 ML SYRINGE IVFLUSH (17:10)
[2021-11-19 20:41] LABS: Glucose, Whole Blood 121 mg/dL (60-115)
[2021-11-19] MEDS: Remdesivir 100 MG in 0.9 % Sodium Chloride 230 ML 115 MG IV (20:45)
[2021-11-19 20:54] LABS: Glucose, Whole Blood 131 mg/dL (60-115)
--- NOTE | 2021-11-19 23:41 | PC.NURSE ---
Reposited pt from left side to right side.
[2021-11-20] VITALS (10 sets, daily range): BP systolic 99–136; BP diastolic 52–73; PULSE 71–101; RESP 18–24; TEMP 36.2–36.8; O2SAT 16–96
[2021-11-20] MEDS: 0.9 % Sodium Chloride Flush 3 ML SYRINGE IVFLUSH ×3 (00:53→16:23)
--- NOTE | 2021-11-20 04:17 | PC.NURSE ---
Addendum entered by Fabby Cortez RN 11/20/21 04:45: Report given to RN on IMC, patient transported to [facility] Room 479 with patient's belongings. Original Note: This RN took over patient's care at 0000. Patient is alert and oriented, denies any pain or discomfort at this time. Repositioned to the left side with pillows. vss
[2021-11-20 07:49] LABS: Glucose, Whole Blood 66 mg/dL (60-115)
--- NOTE | 2021-11-20 08:30 | CA_ITS ---
Transthoracic Echocardiogram Patient (Last, First, Middle): Jaja Gillespie L Gender: Female Date of : 1940 Age: 81 Procedure Date: 11/20/2021 Procedure Type: Transthoracic Echocardiogram Location: [facility] [place] Height: 157.48 cm Weight: 63.96 kg BSA: 1.65 m2 Heart Rate: bpm BP: 118 / 64 mmHg Surgical Services Asst: Referring MD: Joselin Lobato MD Symptoms: covid-19+ nstemi Study Quality: Fair ECG Rhythm: Undetermined Conclusions: - The left ventricular systolic function is mild to moderately decreased. The visually estimated ejection fraction is between 40-45%. - There is mild calcification of the aortic valve. - There is moderate tricuspid valve regurgitation. - There is a small loculated pericardial effusion overlying the left ventricle. Findings Left Ventricle Normal left ventricular cavity size. There is normal left ventricular wall thickness. The left ventricular systolic function is mild to moderately decreased. The visually estimated ejection fraction is between 40-45%. There is mild global hypokinesis. Diastolic function is indeterminate on the basis of available data. Right Ventricle Normal right ventricular cavity size and systolic function. Atria Both atria are normal in size. Aortic Valve There is a normal trileaflet aortic valve. There is mild calcification of the aortic valve. There is no aortic valve stenosis. There is no aortic valve regurgitation. Mitral Valve The mitral valve appears normal. There is trace mitral valve regurgitation. There is no mitral valve stenosis. Pulmonic Valve The pulmonic valve was not well visualized. There is mild pulmonic valve regurgitation. Tricuspid Valve Normal tricuspid valve structure. There is moderate tricuspid valve regurgitation. The right ventricular systolic pressure is 48 mmHg. Moderate pulmonary hypertension is present. Great Vessels The aortic annulus, sinuses of valsalva, and asc aorta are normal in size. Venous The inferior vena cava is normal in size and collapses greater than 50% with inspiration. Pericardium/Pleural There is a small loculated pericardial effusion overlying the left ventricle. Prior Study Comparison Changes noted compared to prior study dated: 07/03/2019. Decrease in LVEF. Increase in RVSP. Measurements 2D Linear Measurements RVIDd: 4.74 RVIDd Index: 2.87 IVSd: 1.19 0.6-0.9/0.6-1.0 cm LVIDd: 4.82 3.9-5.3/4.2-5.9 cm LVIDd Index: 2.92 2.4-3.2/2.2-3.1 cm/m2 LVIDs: 3.48 2.0-3.6 cm LVPWd: 1.22 0.7-1.1 cm Ao Root: 2.90 2.1-3.5 cm LA Diam: 4.60 2.7-3.8/3.0-4.0 cm LAIDs Index: 2.79 1.5-2.3 cm/m2 LV Mass: 276.59 67-162/88-224 g LV Mass Index: 167.63 43-95/49-115 g/m2 LVOT Diam: 2.00 3.0+(-)1.3 cm 2D Systolic Function EF 4C: 39.80 >55% EF 2C: 46.20 >55% EF BiP: 46.60 >55% Mitral Valve MV Pk E: 0.82 MV Decel Time: 181.00 E'Lateral: 5.77 E'Medial: 11.10 E/E' Med: 7.40 E/E' Lat: 14.30 PHT: 53.00 MVA PHT: 4.15 Decel [place]: 4.53 Aortic Valve AoV Pk Justin: 1.30 AoV Mn Justin: 0.83 AoV VTI: 0.29 AoV Pk Grad: 7.00 Aov Mn Grad: 3.00 BERNA[place]TE Cont.VTI: 1.48 LVOT LVOT Pk Justin: 0.68 LVOT Mn Justin: 0.47 LVOT VTI: 0.14 LVOT Pk Grad: 2.00 LVOT Mn Grad: 1.00 LVOT Diam: 2.00 LVOT Area: 3.14 Diastolic Function MV Pk E: 0.82 E'Medial: 11.10 E/E' Med: 7.40 E' Laterial: 5.77 E/E' Lat: 14.30 Right Ventricle TAPSE (mm): 24.00 TVS' Justin: 17.00 Tricuspid Valve TR Pk Justin: 3.34 TR Pk Grad: 45.00 RVSP: 48.00 Great Vessels Aorta Ao Root-2D: 2.90 2.0-3.7 cm Ao Asc: 3.10 2.1-3.4 cm Pulmonary Valve PV Pk Justin: 0.84 Peak PV Grad: 3.00 Updated in Other Vendor System with Status of Final Frank Bazan MD electronically signed on 11/21/2021 9:03:39 AM with status of Final
[2021-11-20] MEDS: carvediloL 12.5 MG TABLET PO ×2 (09:08→21:06)
[2021-11-20] MEDS: Gabapentin 600 MG TABLET 1200 MG PO ×2 (09:08→21:06)
[2021-11-20] MEDS: Aspirin 81 MG TAB.CHEW PO (09:08)
[2021-11-20] MEDS: Rivaroxaban 20 MG TABLET PO (09:08)
[2021-11-20] MEDS: lisinopriL 5 MG TABLET PO (09:08)
[2021-11-20] MEDS: Atorvastatin Calcium 40 MG TABLET PO (09:08)
[2021-11-20] MEDS: dexAMETHasone sod phosphate 4 MG/ML VIAL 6 MG IVPUSH (09:09)
--- NOTE | 2021-11-20 09:14 | MHC.CM.PN ---
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 Patient lives alone(Grandson stays with her at times) in an apartment and uses a w/c to assist with mobility (she was able to transfer herself into the w/c). Patient had a LOADERS 24 hours/week and a recent VNA, that apparently arranged for her to return to the hospital,(unsure of VNA name).STR is the goal for dc ([facility] is first choice or [place], near [place]); CM has initiated and will follow for dc planning. IMM addressed with [place] and the original will be mailed certified letter to him and A COPY HAS BEEN PLACED ON THE CHART. PCP is Dr. Hunter FLORES.
[2021-11-20] MEDS: Fluticasone/Vilanterol 200/25 BLST.W.DEV 1 PUFF INHALE (09:21)
[2021-11-20] MEDS: Albuterol Sulfate 90 MCG 8 GM INHALER 4 PUFF INHALE ×3 (09:24→21:01)
[2021-11-20 11:13] LABS: Glucose, Whole Blood 168 mg/dL (60-115)
[2021-11-20] MEDS: Insulin Lispro 100 UNIT/ML 3 ML VIAL SUBCUT ×3 (11:26→21:06)
--- NOTE | 2021-11-20 16:16 | PC.NURSE ---
Pt alert and oriented x3 but is confused and forgetful at times. Pt informed us this am that she ambulates without a walker or cane at baseline. Tried getting pt up to the BR but she was weak and unable to stand on her own. pt is therefore an assist of 1-2. Pt weaned off O2 this am since she was not in distress, but on ambulation she desatted to the 80s. Pt put back on 2L NC with a good rebound to the mid 90s. notified. Orders in to get pt up on the chair.
[2021-11-20 16:22] LABS: Glucose, Whole Blood 229 mg/dL (60-115)
[2021-11-20] MEDS: cefTRIAXone sodium 1 GM in 0.9 % Sodium Chloride 50 ML IV (16:22)
--- NOTE | 2021-11-20 16:34 | P.CNID_ITS ---
History of Present Illness Data of Consult Service Date: 11/20/21 Requesting physician: Gregor Dan Primary Care Provider: Hunter Prince MD HPI Reason for consult: COVID She has weakness She was diagnosed with UTI last week and discharged She has new 3 liter oxygen requirement She is COVID positive Review of Systems Verdana 4l Review of Systems: Yes Unobtainable due to mental status Verdana 4d PMFSH Past Medical History Medical History Cardiomyopathy COPD (chronic obstructive pulmonary disease) Coronary artery disease Diabetic nephropathy Diabetic neuropathy Essential hypertension Hypercholesterolemia Nonischemic cardiomyopathy Paroxysmal atrial fibrillation PFO (patent foramen ovale) Sarcoidosis Spinal stenosis of lumbar region Ventricular tachycardia Vitamin D deficiency Family History Family History Father CVD (cardiovascular disease) Mother Diabetes Family history: reviewed and not pertinent Surgical History Surgical History History of bladder surgery History of cardiac catheterization (~04/2016) History of cardioversion (~12/2016) History of hysterectomy Social History Social History Household Members: None Housing: Apartment Do you presently have visiting nurse or other home services: No Patient Tobacco Use Status: Former Tobacco user Advance Directives Date on File: 11/18/21 service: No Current occupational status: retired Meds Allergies Allergy/AdvReac Type Severity Reaction Status Date / Time Iodinated Contrast Allergy Severe ANAPHYLAXIS Verified 12/18/20 09:40 Media [IV Dye, Iodine Containing] shellfish derived Allergy Severe TREMORS, Verified 12/18/20 09:40 [SHELLFISH DERIVED] HALLUCINATIONS fluticasone [Advair Allergy Unknown unk Verified 12/18/20 09:40 Diskus] salmeterol [Advair Allergy Unknown unk Verified 12/18/20 09:40 Diskus] loratadine [From AdvReac Mild NAUSEA & Verified 12/18/20 09:40 Claritin] VOMITING Sea food Allergy Unknown itching Uncoded 12/18/20 09:40 Active Medications: Current Medications Acetaminophen (Acetaminophen 325 Mg Tablet) 650 mg PO Q6H PRN PRN Reason: Pain, Mild (Pain Scale 1-3) Albuterol Sulfate (Albuterol Sulfate 90 Mcg 8 Gm Inhaler) 4 puff INHALE RQ4H WHILE AWAKE [facility] Last Admin: 11/20/21 16:07 Dose: 4 puff Documented by: Albuterol Sulfate (Albuterol Sulfate 90 Mcg 8 Gm Inhaler) 4 puff INHALE Q2H PRN PRN Reason: shortness of breath or wheeze Aspirin (Aspirin 81 Mg Tab.Chew) 81 mg PO DAILY [facility] Last Admin: 11/20/21 09:08 Dose: 81 mg Documented by: Atorvastatin Calcium (Atorvastatin Calcium 40 Mg Tablet) 40 mg PO DAILY [facility] Last Admin: 11/20/21 09:08 Dose: 40 mg Documented by: Carvedilol (Carvedilol 12.5 Mg Tablet) 12.5 mg PO BID [facility]; Protocol Last Admin: 11/20/21 09:08 Dose: 12.5 mg Documented by: Dexamethasone Sodium Phosphate (Dexamethasone Sod Phosphate 4 Mg/Ml Vial) 6 mg IVPUSH DAILY [facility] Stop: 11/27/21 09:01 Last Admin: 11/20/21 09:09 Dose: 6 mg Documented by: Dextrose (Dextrose 50 % 25 Gm/50 Ml Vial) 25 gm IVPUSH Q15M PRN; Protocol PRN Reason: per Hypoglycemia Standing Ord. Fluticasone/Vilanterol (Fluticasone/Vilanterol 200/25 Blst.W.Dev) 1 puff INHALE RDAILY [facility] Last Admin: 11/20/21 09:21 Dose: 1 puff Documented by: Gabapentin (Gabapentin 600 Mg Tablet) 1,200 mg PO BID [facility] Last Admin: 11/20/21 09:08 Dose: 1,200 mg Documented by: Glucose (Glucose Gel 15 Gm Gel..Gram.) 15 gm PO Q15M PRN; Protocol PRN Reason: per Hypoglycemia Standing Ord. Ceftriaxone Sodium 1 gm/ (Sodium Chloride) 50 mls @ 100 mls/hr IV Q24H [facility] Last Admin: 11/20/21 16:22 Dose: 50 mls/hr Documented by: Remdesivir 100 mg/ Sodium (Chloride) 230 mls @ 115 mls/hr IV Q24H [facility] Stop: 11/22/21 22:59 Last Infusion: 11/20/21 00:43 Dose: Infused Documented by: Insulin Human Lispro (Insulin Lispro 100 Unit/Ml 3 Ml Vial) 0 unit SUBCUT QIDACHS [facility]; Protocol Last Admin: 11/20/21 11:26 Dose: 2 unit Documented by: Lisinopril (Lisinopril 5 Mg Tablet) 5 mg PO DAILY [facility]; Protocol Last Admin: 11/20/21 09:08 Dose: 5 mg Documented by: Ondansetron HCl (Ondansetron Hcl 4 Mg/2 Ml Vial) 4 mg IVPUSH Q8H PRN PRN Reason: Nausea and Vomiting Rivaroxaban (Rivaroxaban 20 Mg Tablet) 20 mg PO DAILY [facility] Last Admin: 11/20/21 09:08 Dose: 20 mg Documented by: Sodium Chloride (0.9 % Sodium Chloride Flush 3 Ml Syringe) 3 ml IVFLUSH QSHIFT [facility] Last Admin: 11/20/21 16:23 Dose: 3 ml Documented by: Home Medications Medication Instructions Recorded Confirmed Last Taken Type blood sugar #10 ea 04/17/21 Unknown History diagnostic (StoredIQTouch Verio test strips) Physical Exam Verdana 4l Vital Signs: Verdana 4d Verdana 4d Vital Signs: Verdana 4d Verdana 4Bd Last Vital Signs Verdana 4d Whipped Topping Finisher New 4d Whipped Topping Finisher New 4d Temp 98.2 F 11/20/21 14:58 Whipped Topping Finisher New 4d Pulse 73 11/20/21 16:08 Whipped Topping Finisher New 4d Resp 20 11/20/21 14:58 BP 107/56 L 11/20/21 14:58 Pulse Ox 95 11/20/21 14:58 Oxygen Flow Rate 3 11/18/21 11:53 BMI result Body Mass Index 25.9 Const: General: cooperative Eyes: General: appearance normal, both eyes and all related structures Pupils: Equa l, round and reactive pupils present Resp: Effort & Inspection: normal respiratory effort Cardio: Rate: regular rate Rhythm: regular rhythm GI: Palpation (GI): nontender Neuro: Cranial nerves: Yes Equal, round and reactive pupils present Extrem: General: Yes normal to inspection Results Labs CBC & Chem 7: 11/24/21 06:00 11/24/21 06:00 Microbiology Microbiology Results: Microbiology 11/18/21 12:17 Blood - Venous Blood Culture - Preliminary No growth after 48 hours. 11/18/21 12:19 Blood - Venous Blood Culture - Preliminary No growth after 48 hours. 11/18/21 Unknown Urine Catheterized - Mccarthy Catheter Urine Culture - Preliminary Yeast Assessment and Plan (1) COVID-19: Status: Acute There is new oxygen need She has COVID with hypoxia Plan Dexamethasone Remdesivir Oxygen as needed
--- NOTE | 2021-11-20 16:57 | P.PNIM_ITS ---
Subjective Subjective Date of Service: 11/20/21 Interval History: Feeling significantly better this morning, moving bowels denies abdominal pain, denies fever chills, denies nausea vomiting abdominal pain, Mccarthy catheter with clear urine, as per patient she lives alone and walks without assistive device Review of Systems Review of Systems: Yes all other systems are reviewed and are negative Physical Exam Vital Signs: Vital Signs: Last Vital Signs Temp 98.2 F 11/20/21 14:58 Pulse 73 11/20/21 16:08 Resp 20 11/20/21 14:58 BP 107/56 L 11/20/21 14:58 Pulse Ox 95 11/20/21 14:58 Oxygen Flow Rate 3 11/18/21 11:53 BMI result Body Mass Index 25.9 Gen:? Awake alert, No acute distress Neck: supple,no jvd Lungs: diminished, no respiratory distress Heart:? Regular rate rhythm Abd: soft, non tender, bowel sounds audible Ext: no edema Skin: warm/well-perfused Neuro:awake alert speech clear,moving all extremities Objective Data Active Medications Acetaminophen (Acetaminophen 325 Mg Tablet) 650 mg PO Q6H PRN PRN Reason: Pain, Mild (Pain Scale 1-3) Albuterol Sulfate (Albuterol Sulfate 90 Mcg 8 Gm Inhaler) 4 puff INHALE RQ4H WHILE AWAKE [facility] Last Admin: 11/20/21 16:07 Dose: 4 puff Documented by: JESSA Albuterol Sulfate (Albuterol Sulfate 90 Mcg 8 Gm Inhaler) 4 puff INHALE Q2H PRN PRN Reason: shortness of breath or wheeze Aspirin (Aspirin 81 Mg Tab.Chew) 81 mg PO DAILY [facility] Last Admin: 11/20/21 09:08 Dose: 81 mg Documented by: KENZIE Atorvastatin Calcium (Atorvastatin Calcium 40 Mg Tablet) 40 mg PO DAILY [facility] Last Admin: 11/20/21 09:08 Dose: 40 mg Documented by: KENZIE Carvedilol (Carvedilol 12.5 Mg Tablet) 12.5 mg PO BID [facility]; Protocol Last Admin: 11/20/21 09:08 Dose: 12.5 mg Documented by: KENZIE Dexamethasone Sodium Phosphate (Dexamethasone Sod Phosphate 4 Mg/Ml Vial) 6 mg IVPUSH DAILY [facility] Stop: 11/27/21 09:01 Last Admin: 11/20/21 09:09 Dose: 6 mg Documented by: KENZIE Dextrose (Dextrose 50 % 25 Gm/50 Ml Vial) 25 gm IVPUSH Q15M PRN; Protocol PRN Reason: per Hypoglycemia Standing Ord. Fluticasone/Vilanterol (Fluticasone/Vilanterol 200/25 Blst.W.Dev) 1 puff INHALE RDAILY [facility] Last Admin: 11/20/21 09:21 Dose: 1 puff Documented by: JESSA Gabapentin (Gabapentin 600 Mg Tablet) 1,200 mg PO BID [facility] Last Admin: 11/20/21 09:08 Dose: 1,200 mg Documented by: KENZIE Glucose (Glucose Gel 15 Gm Gel..Gram.) 15 gm PO Q15M PRN; Protocol PRN Reason: per Hypoglycemia Standing Ord. Ceftriaxone Sodium 1 gm/ (Sodium Chloride) 50 mls @ 100 mls/hr IV Q24H [facility] Last Infusion: 11/20/21 16:23 Dose: 100 mls/hr Documented by: DAWSNO Remdesivir 100 mg/ Sodium (Chloride) 230 mls @ 115 mls/hr IV Q24H [facility] Stop: 11/22/21 22:59 Last Infusion: 11/20/21 00:43 Dose: 0 mls/hr Documented by: GAUDENCIO Insulin Human Lispro (Insulin Lispro 100 Unit/Ml 3 Ml Vial) 0 unit SUBCUT QIDACHS [facility]; Protocol Last Admin: 11/20/21 16:50 Dose: 2 unit Documented by: DAWSON Lisinopril (Lisinopril 5 Mg Tablet) 5 mg PO DAILY [facility]; Protocol Last Admin: 11/20/21 09:08 Dose: 5 mg Documented by: KENZIE Ondansetron HCl (Ondansetron Hcl 4 Mg/2 Ml Vial) 4 mg IVPUSH Q8H PRN PRN Reason: Nausea and Vomiting Rivaroxaban (Rivaroxaban 20 Mg Tablet) 20 mg PO DAILY [facility] Last Admin: 11/20/21 09:08 Dose: 20 mg Documented by: KENZIE Sodium Chloride (0.9 % Sodium Chloride Flush 3 Ml Syringe) 3 ml IVFLUSH QSHIFT [facility] Last Admin: 11/20/21 16:23 Dose: 3 ml Documented by: DAWSON Labs CBC & Chem 7: 11/19/21 07:24 11/19/21 07:24 Labs: Laboratory Results - last 24 hr 11/19/21 11/19/21 11/20/21 19:01 20:42 07:43 POC Glucose 121 H 131 H 66 11/20/21 11/20/21 11:04 16:19 POC Glucose 168 H 229 H Microbiology Microbiology Results: Microbiology 11/18/21 12:17 Blood Culture - Preliminary Blood - Venous No growth after 48 hours. 11/18/21 12:19 Blood Culture - Preliminary Blood - Venous No growth after 48 hours. 11/18/21 Unknown Urine Culture - Preliminary Urine Catheterized - Mccarthy Catheter Yeast Assessment and Plan (1) Hydronephrosis: Status: Acute (2) Fecal impaction: Status: Acute (3) Acute urinary retention: Status: Acute (4) COVID-19: Status: Acute (5) Non-ST elevated myocardial infarction: Status: Acute (6) UTI (urinary tract infection): Status: Acute (7) Atrial fibrillation: Status: Acute Assessment and Plan: 81yo F with AF on rivaroxaban, hx VT, HFpEF, HTN, HLD, CAD, PFO, COPD, sarcoidosis who was recently admitted to this hospital 11/01/21-11/14/21 with we akness due to UTI and PNA, discharged home and presenting after not eating or drinking and found to be hypoxic, tachycardic, and tachypneic with Covid-19 infection, NSTEMI, UTI, hydroureteronephrosis with bladder outlet obstruction, and fecal impaction with stercoral colitis # acute hypoxic resp failure - hypoxia likely due to COVID and COPD exacerbation, finger oximetry stable # Covid-19 infection # COPD exacerbation - unvaccinated + high-risk for severe disease ,on remdesivir day 3/5? + dex amethasone x10d ? continue albuterol inhalers and? ICS/LABA inhaler Seen by ID she recommends dexamethasone and remdesivir, wean oxygen as tolerated # viral sepsis - symptoms of sepsis tachycardia and tachypnea resolved # NSTEMI - likely type 2 demand related from tachycardia/Covid-19 continue ASA + beta- blockers and statin seen by Cardiology they agree with current treatment # UTI - noted to have cloudy urine with pus, continue ceftriaxone, blood cultures no growth, urine culture grew greater than 100,000 yeast likly colonization will d/w Id # hydroureteronephrosis # bladder outlet obstruction, Mccarthy draining cloudy urine , seen by Urology they recommend a renal ultrasound to check if hydronephrosis has resolved # stercoral colitis # no abdominal pain, moving bowels, continue bowel meds # CAD - continue statin, rivaroxaban, carvedilol, lisinopril # HTN - continue carvedilol, and lisinopril # pAF - continue carvedilol for rate control, anticoagulate with rivaroxaban # VTE ppx - rivaroxaban # code - full Quality Stroke Does the patient have a stroke diagnosis?: No VTE Prior VTE?: No VTE Risk Level:: Medical - moderate - high VTE Device Contraindication: N/A - Device Ordered VTE Drug Contraindication: N/A - Med Ordered
[2021-11-20 19:58] LABS: Glucose, Whole Blood 250 mg/dL (60-115)
[2021-11-20] MEDS: Remdesivir 100 MG in 0.9 % Sodium Chloride 230 ML 115 MG IV (21:07)
[2021-11-21] VITALS (7 sets, daily range): BP systolic 121–146; BP diastolic 63–90; PULSE 64–108; RESP 16–22; TEMP 36.6–37.1; O2SAT 92–98
[2021-11-21 06:23] LABS: MANUAL DIFF FLAG NO
[2021-11-21 06:30] LABS: Hematocrit 29.6 % (37.0-47.0); Hemoglobin 9.9 g/dl (12.0-16.0); Imm Gran Abs Auto 0.02 X10*3/uL (0.00-0.03); Imm Gran Pct Auto 0.4 % (0.0-0.4); Mean Corpuscular HGB Conc 33.4 g/dl (31.0-35.0); Mean Corpuscular Hemoglobin 31.7 pg (27.0-33.0); Mean Corpuscular Volume 94.9 fL (80.0-98.0); Mean Platelet Volume 9.1 fL (9.4-12.3); Monocytes Absolute Auto 0.6 X10*3/uL (0.1-1.2); Monocytes Percent Auto 9.7 % (2-11); Neutrophils Absolute Auto 4.1 x10*3/uL (2.0-8.3); Neutrophils Percent Auto 72.9 % (45-73); Platelet Count 211 X10*3/uL (160-400); Red Blood Count 3.12 X10*6/uL (4.20-5.50); Red Cell Distribution Width 13.3 % (11.0-16.0); White Blood Count 5.7 X10*3/uL (4.8-10.8)
[2021-11-21 07:43] LABS: Glucose, Whole Blood 118 mg/dL (60-115)
[2021-11-21] MEDS: dexAMETHasone sod phosphate 4 MG/ML VIAL 6 MG IVPUSH (09:54)
[2021-11-21] MEDS: Gabapentin 600 MG TABLET 1200 MG PO ×2 (09:54→22:10)
[2021-11-21] MEDS: carvediloL 12.5 MG TABLET PO ×2 (09:54→22:12)
[2021-11-21] MEDS: Aspirin 81 MG TAB.CHEW PO (09:54)
[2021-11-21] MEDS: 0.9 % Sodium Chloride Flush 3 ML SYRINGE IVFLUSH ×3 (09:54→22:11)
[2021-11-21] MEDS: Rivaroxaban 20 MG TABLET PO (09:54)
[2021-11-21] MEDS: lisinopriL 5 MG TABLET PO (09:54)
[2021-11-21] MEDS: Atorvastatin Calcium 40 MG TABLET PO (09:54)
--- NOTE | 2021-11-21 11:28 | HO.PM.IMPN ---
Subjective Subjective Date of Service: 11/21/21 Interval History: Complaining of generalized weakness, bowel incontinence, denies shortness of breath, no chest pain, no abdominal pain ,no nausea, no vomiting, was living alone at home ambulating without assistive device now feeling weak and requiring assistance for out of bed,Mccarthy catheter with clear urine. Review of Systems Review of Systems: Yes all other systems are reviewed and are negative Physical Exam Vital Signs: Vital Signs: Last Vital Signs Temp 98.1 F 11/21/21 08:00 Pulse 98 11/21/21 08:00 Resp 22 H 11/21/21 08:00 BP 129/67 11/21/21 08:00 Pulse Ox 95 11/21/21 08:00 Oxygen Flow Rate 3 11/18/21 11:53 BMI result Body Mass Index 25.9 Gen:? Awake alert, No acute distress Neck: supple,no jvd Lungs: diminished BS, no respiratory distress Heart:? Regular rate rhythm Abd: soft, non tender, bowel sounds audible Ext: no edema Skin: warm/well-perfused, groin rash Neuro:awake alert speech clear,moving all extremities Objective Data Active Medications Acetaminophen (Acetaminophen 325 Mg Tablet) 650 mg PO Q6H PRN PRN Reason: Pain, Mild (Pain Scale 1-3) Albuterol Sulfate (Albuterol Sulfate 90 Mcg 8 Gm Inhaler) 4 puff INHALE RQ4H WHILE AWAKE [facility] Last Admin: 11/21/21 08:08 Dose: Not Given Documented by: DALE Non-Admin Reason: Med Not Available Albuterol Sulfate (Albuterol Sulfate 90 Mcg 8 Gm Inhaler) 4 puff INHALE Q2H PRN PRN Reason: shortness of breath or wheeze Aspirin (Aspirin 81 Mg Tab.Chew) 81 mg PO DAILY [facility] Last Admin: 11/21/21 09:54 Dose: 81 mg Documented by: YAN Atorvastatin Calcium (Atorvastatin Calcium 40 Mg Tablet) 40 mg PO DAILY [facility] Last Admin: 11/21/21 09:54 Dose: 40 mg Documented by: YAN Carvedilol (Carvedilol 12.5 Mg Tablet) 12.5 mg PO BID [facility]; Protocol Last Admin: 11/21/21 09:54 Dose: 12.5 mg Documented by: YAN Dexamethasone Sodium Phosphate (Dexamethasone Sod Phosphate 4 Mg/Ml Vial) 6 mg IVPUSH DAILY [facility] Stop: 11/27/21 09:01 Last Admin: 11/21/21 09:54 Dose: 6 mg Documented by: YAN Comments: Dextrose (Dextrose 50 % 25 Gm/50 Ml Vial) 25 gm IVPUSH Q15M PRN; Protocol PRN Reason: per Hypoglycemia Standing Ord. Fluticasone/Vilanterol (Fluticasone/Vilanterol 200/25 Blst.W.Dev) 1 puff INHALE RDAILY [facility] Last Admin: 11/21/21 08:08 Dose: Not Given Documented by: DALE Non-Admin Reason: Med Not Available Gabapentin (Gabapentin 600 Mg Tablet) 1,200 mg PO BID [facility] Last Admin: 11/21/21 09:54 Dose: 1,200 mg Documented by: YAN Glucose (Glucose Gel 15 Gm Gel..Gram.) 15 gm PO Q15M PRN; Protocol PRN Reason: per Hypoglycemia Standing Ord. Ceftriaxone Sodium 1 gm/ (Sodium Chloride) 50 mls @ 100 mls/hr IV Q24H [facility] Last Infusion: 11/20/21 17:01 Dose: 0 mls/hr Documented by: DAWSON Remdesivir 100 mg/ Sodium (Chloride) 230 mls @ 115 mls/hr IV Q24H [facility] Stop: 11/22/21 22:59 Last Infusion: 11/21/21 00:18 Dose: 0 mls/hr Documented by: SWAPNA Insulin Human Lispro (Insulin Lispro 100 Unit/Ml 3 Ml Vial) 0 unit SUBCUT QIDACHS [facility]; Protocol Last Admin: 11/21/21 08:46 Dose: Not Given Documented by: YAN Non-Admin Reason: No Insulin Coverage Lisinopril (Lisinopril 5 Mg Tablet) 5 mg PO DAILY [facility]; Protocol Last Admin: 11/21/21 09:54 Dose: 5 mg Documented by: YAN Nystatin (Nystatin Powder 15 Gm Bottle) 1 appl TOPICAL BID [facility]; Protocol Ondansetron HCl (Ondansetron Hcl 4 Mg/2 Ml Vial) 4 mg IVPUSH Q8H PRN PRN Reason: Nausea and Vomiting Rivaroxaban (Rivaroxaban 20 Mg Tablet) 20 mg PO DAILY [facility] Last Admin: 11/21/21 09:54 Dose: 20 mg Documented by: YAN Sodium Chloride (0.9 % Sodium Chloride Flush 3 Ml Syringe) 3 ml IVFLUSH QSHIFT [facility] Last Admin: 11/21/21 09:54 Dose: 3 ml Documented by: YAN Labs CBC & Chem 7: 11/21/21 06:01 11/19/21 07:24 Labs: Laboratory Results - last 24 hr 11/20/21 11/20/21 11/21/21 16:19 19:53 06:01 MCV 94.9 MCH 31.7 MCHC 33.4 RDW 13.3 Plt Count 211 MPV 9.1 L Immature Gran % (Auto) 0.4 Neut % (Auto) 72.9 Lymph % (Auto) 17.0 L [place] % (Auto) 9.7 Eos % (Auto) 0.0 Baso % (Auto) 0.0 Lymph # (Auto) 1.0 L [place] # (Auto) 0.6 Eos # (Auto) 0.0 Baso # (Auto) 0.0 Abs Immat Gran (auto) 0.02 Absolute Neuts (auto) 4.1 Absolute Nucleated RBC 0.000 Nucleated RBC % (auto) 0.0 POC Glucose 229 H 250 H 11/21/21 07:27 MCV MCH MCHC RDW Plt Count MPV Immature Gran % (Auto) Neut % (Auto) Lymph % (Auto) [place] % (Auto) Eos % (Auto) Baso % (Auto) Lymph # (Auto) [place] # (Auto) Eos # (Auto) Baso # (Auto) Abs Immat Gran (auto) Absolute Neuts (auto) Absolute Nucleated RBC Nucleated RBC % (auto) POC Glucose 118 H Microbiology Microbiology Results: Microbiology 11/18/21 Unknown Urine Culture - Final Urine Catheterized - Mccarthy Catheter Marian albicans 11/18/21 12:17 Blood Culture - Preliminary Blood - Venous No growth after 48 hours. 11/18/21 12:19 Blood Culture - Preliminary Blood - Venous No growth after 48 hours. Assessment and Plan (1) Hydronephrosis: Status: Acute (2) Acute urinary retention: Status: Acute (3) COVID-19: Status: Acute (4) Non-ST elevated myocardial infarction: Status: Acute (5) Type 2 diabetes mellitus with hyperglycemia: Status: Acute Assessment and Plan: 81yo F with AF on rivaroxaban, hx VT, HFpEF, HTN, HLD, CAD, PFO, COPD, sarcoidosis who was recently admitted to this hospital 11/01/21-11/14/21 with weakness due to UTI and PNA, discharged home and presenting after not eating or drinking and found to be hypoxic, tachycardic, and tachypneic with Covid-19 infection, NSTEMI, UTI, hydroureteronephrosis with bladder outlet obstruction, and fecal impaction with stercoral colitis # acute hypoxic resp failure likely due to COVID and COPD exacerbation, finger oximetry stable on 2 L of oxygen unvaccinated + high-risk for severe disease ,on remdesivir day 02/09? + dexamethasone /10d ? continue albuterol inhalers and? ICS/LABA inhaler ? Seen by ID she recommends dexamethasone and remdesivir, wean oxygen as tolerated, not on home oxygen # viral sepsis - symptoms of sepsis tachycardia and tachypnea resolved # chronic normocytic anemia noted to have drop in hematocrit likely due to acute infection no overt bleeding noted patient on aspirin and Xarelto will follow CBC and clinical course # NSTEMI - likely type 2 demand related from tachycardia/Covid-19 continue ASA + beta-blockers and statin seen by Cardiology they agree with current treatment # UTI - noted to have cloudy urine with pus, on ceftriaxone day 3, blood cultures no growth, urine culture grew greater than 100,000 Marian will DC IV ceftriaxone # hydroureteronephrosis # bladder outlet obstruction,seen by Urology renal ultrasound obtained that showed clearance of hydronephrosis and showed mild perinephric fluid collection left kidney # stercoral colitis patient now with stool incontinence, not on stool softeners likely due to antibiotics # CAD - continue statin, rivaroxaban, carvedilol, and lisinopril # HTN - few low blood pressure readings on carvedilol, and lisinopril, will hold lisinopril and follow BP # diabetes mellitus type 2 on metformin, blood sugars elevated likely due to Decadron will resume metformin and continue sliding scale insulin # pAF - continue carvedilol for rate control, anticoagulate with rivaroxaban # generalized weakness was living alone in an elderly housing apartment and ambulating with no assistive device, now unable to stand up likely due to viral sepsis, nstemi, hypoxia will obtain PT eval, continue supportive care # VTE ppx - rivaroxaban # code - full Quality Stroke Does the patient have a stroke diagnosis?: No VTE Prior VTE?: No VTE Risk Level:: Medical - moderate - high VTE Device Contraindication: N/A - Device Ordered VTE Drug Contraindication: N/A - Med Ordered
[2021-11-21 12:07] LABS: Glucose, Whole Blood 159 mg/dL (60-115)
[2021-11-21] MEDS: Acetaminophen 325 MG TABLET 650 MG PO (12:49)
[2021-11-21] MEDS: ondansetron HCL 4 MG/2 ML VIAL IVPUSH (12:49)
[2021-11-21] MEDS: Insulin Lispro 100 UNIT/ML 3 ML VIAL SUBCUT ×3 (12:49→22:11)
[2021-11-21 16:32] LABS: Glucose, Whole Blood 220 mg/dL (60-115)
[2021-11-21 20:36] LABS: Glucose, Whole Blood 197 mg/dL (60-115)
[2021-11-21] MEDS: Albuterol Sulfate 90 MCG 8 GM INHALER 4 PUFF INHALE (21:39)
[2021-11-21] MEDS: Remdesivir 100 MG in 0.9 % Sodium Chloride 230 ML 115 MG IV (22:15)
[2021-11-22] VITALS (8 sets, daily range): BP systolic 106–150; BP diastolic 53–77; PULSE 69–97; RESP 16–22; TEMP 36.1–37.3; O2SAT 90–98
[2021-11-22 06:52] LABS: Hematocrit 30.4 % (37.0-47.0); Hemoglobin 10.1 g/dl (12.0-16.0); Mean Corpuscular HGB Conc 33.2 g/dl (31.0-35.0); Mean Corpuscular Hemoglobin 31.4 pg (27.0-33.0); Mean Corpuscular Volume 94.4 fL (80.0-98.0); Mean Platelet Volume 9.3 fL (9.4-12.3); Platelet Count 219 X10*3/uL (160-400); Red Blood Count 3.22 X10*6/uL (4.20-5.50); White Blood Count 4.7 X10*3/uL (4.8-10.8)
[2021-11-22 07:17] LABS: Anion Gap 9 (12-20); Blood Urea Nitrogen 15 mg/dL (9-16); Carbon Dioxide 32 mmol/L (22-29); Chloride 101 mmol/L (96-108); Creatinine Clr Calc Pharmacy 59.8; Estimated Glomerular Filt Rate > 60; Glucose Random 183 mg/dL (60-115); Potassium 3.5 mmol/L (3.3-5.1); Sodium 138 mmol/L (135-145)
[2021-11-22 07:39] LABS: Glucose, Whole Blood 143 mg/dL (60-115)
[2021-11-22] MEDS: Albuterol Sulfate 90 MCG 8 GM INHALER 4 PUFF INHALE ×3 (08:42→20:36)
[2021-11-22] MEDS: Fluticasone/Vilanterol 200/25 BLST.W.DEV 1 PUFF INHALE (08:44)
[2021-11-22] MEDS: dexAMETHasone sod phosphate 4 MG/ML VIAL 6 MG IVPUSH (11:00)
[2021-11-22] MEDS: carvediloL 12.5 MG TABLET PO ×2 (11:00→22:09)
[2021-11-22] MEDS: Atorvastatin Calcium 40 MG TABLET PO (11:00)
[2021-11-22] MEDS: Gabapentin 600 MG TABLET 1200 MG PO ×2 (11:00→22:09)
[2021-11-22] MEDS: Rivaroxaban 20 MG TABLET PO (11:00)
[2021-11-22] MEDS: Aspirin 81 MG TAB.CHEW PO (11:00)
[2021-11-22] MEDS: 0.9 % Sodium Chloride Flush 3 ML SYRINGE IVFLUSH ×2 (11:00→16:54)
[2021-11-22 11:09] LABS: Glucose, Whole Blood 151 mg/dL (60-115)
--- NOTE | 2021-11-22 11:29 | P.PNIM_ITS ---
Subjective Subjective Date of Service: 11/22/21 Interval History: Feeling better this morning, feels tired and weak, no shortness of breath, no fever, no chills no nausea no vomiting, denies having urinary problems at baseline, denies urinary burning or frequency 5, Mccarthy catheter with clear urine with some sediment. Has been out of bed to chair with assistance. Review of Systems Review of Systems: Yes all other systems are reviewed and are negative Physical Exam Vital Signs: Vital Signs: Last Vital Signs Temp 97.0 F 11/22/21 08:00 Pulse 72 11/22/21 08:46 Resp 16 11/22/21 08:46 BP 124/77 11/22/21 08:00 Pulse Ox 94 11/22/21 08:00 Oxygen Flow Rate 3 11/18/21 11:53 BMI result Body Mass Index 25.9 Gen:? Awake alert, No acute distress Oral mucosa moist Neck: supple,no jvd Lungs: diminished BS, no respiratory distress Heart:? Regular rate rhythm Abd: soft, non tender, bowel sounds audible Ext: no edema Skin: warm/well-perfused, groin rash Neuro:awake alert, speech clear,moving all extremities Objective Data Active Medications Acetaminophen (Acetaminophen 325 Mg Tablet) 650 mg PO Q6H PRN PRN Reason: Pain, Mild (Pain Scale 1-3) Last Admin: 11/21/21 12:49 Dose: 650 mg Documented by: YAN Albuterol Sulfate (Albuterol Sulfate 90 Mcg 8 Gm Inhaler) 4 puff INHALE RQ4H WHILE AWAKE [facility] Last Admin: 11/22/21 08:42 Dose: 4 puff Documented by: SHANIQUA Albuterol Sulfate (Albuterol Sulfate 90 Mcg 8 Gm Inhaler) 4 puff INHALE Q2H PRN PRN Reason: shortness of breath or wheeze Aspirin (Aspirin 81 Mg Tab.Chew) 81 mg PO DAILY [facility] Last Admin: 11/22/21 11:00 Dose: 81 mg Documented by: YAN Atorvastatin Calcium (Atorvastatin Calcium 40 Mg Tablet) 40 mg PO DAILY [facility] Last Admin: 11/22/21 11:00 Dose: 40 mg Documented by: YAN Carvedilol (Carvedilol 12.5 Mg Tablet) 12.5 mg PO BID [facility]; Protocol Last Admin: 11/22/21 11:00 Dose: 12.5 mg Documented by: YAN Dexamethasone Sodium Phosphate (Dexamethasone Sod Phosphate 4 Mg/Ml Vial) 6 mg IVPUSH DAILY [facility] Stop: 11/27/21 09:01 Last Admin: 11/22/21 11:00 Dose: 6 mg Documented by: YAN Dextrose (Dextrose 50 % 25 Gm/50 Ml Vial) 25 gm IVPUSH Q15M PRN; Protocol PRN Reason: per Hypoglycemia Standing Ord. Fluticasone/Vilanterol (Fluticasone/Vilanterol 200/25 Blst.W.Dev) 1 puff INHALE RDAILY [facility] Last Admin: 11/22/21 08:44 Dose: 1 puff Documented by: SHANIQUA Gabapentin (Gabapentin 600 Mg Tablet) 1,200 mg PO BID [facility] Last Admin: 11/22/21 11:00 Dose: 1,200 mg Documented by: YAN Glucose (Glucose Gel 15 Gm Gel..Gram.) 15 gm PO Q15M PRN; Protocol PRN Reason: per Hypoglycemia Standing Ord. Remdesivir 100 mg/ Sodium (Chloride) 230 mls @ 115 mls/hr IV Q24H [facility] Stop: 11/22/21 22:59 Last Infusion: 11/22/21 00:45 Dose: 0 mls/hr Documented by: ABBY Insulin Human Lispro (Insulin Lispro 100 Unit/Ml 3 Ml Vial) 0 unit SUBCUT QIDACHS [facility]; Protocol Last Admin: 11/22/21 09:26 Dose: Not Given Documented by: YAN Non-Admin Reason: No Insulin Coverage Nystatin (Nystatin Powder 15 Gm Bottle) 1 appl TOPICAL BID [facility]; Protocol Last Admin: 11/21/21 22:14 Dose: Not Given Documented by: ABBY Non-Admin Reason: Med Not Available Ondansetron HCl (Ondansetron Hcl 4 Mg/2 Ml Vial) 4 mg IVPUSH Q8H PRN PRN Reason: Nausea and Vomiting Last Admin: 11/21/21 12:49 Dose: 4 mg Documented by: YAN Rivaroxaban (Rivaroxaban 20 Mg Tablet) 20 mg PO DAILY [facility] Last Admin: 11/22/21 11:00 Dose: 20 mg Documented by: YAN Sodium Chloride (0.9 % Sodium Chloride Flush 3 Ml Syringe) 3 ml IVFLUSH QSHIFT [facility] Last Admin: 11/22/21 11:00 Dose: 3 ml Documented by: YAN Labs CBC & Chem 7: 11/22/21 06:19 11/22/21 06:19 Labs: Laboratory Results - last 24 hr 11/21/21 11/21/21 11/21/21 11:51 16:28 20:27 MCV MCH MCHC RDW Plt Count MPV Absolute Nucleated RBC Nucleated RBC % (auto) Anion Gap Estim Creat Clear Calc Estimated GFR POC Glucose 159 H 220 H 197 H Random Glucose Calcium 11/22/21 11/22/21 11/22/21 06:19 06:19 07:34 MCV 94.4 MCH 31.4 MCHC 33.2 RDW 13.0 Plt Count 219 MPV 9.3 L Absolute Nucleated RBC 0.000 Nucleated RBC % (auto) 0.0 Anion Gap 9 L Estim Creat Clear Calc 59.8 Estimated GFR > 60 POC Glucose 143 H Random Glucose 183 H Calcium 8.0 L 11/22/21 11:03 MCV MCH MCHC RDW Plt Count MPV Absolute Nucleated RBC Nucleated RBC % (auto) Anion Gap Estim Creat Clear Calc Estimated GFR POC Glucose 151 H Random Glucose Calcium Microbiology Microbiology Results: Microbiology 11/18/21 Unknown Urine Culture - Final Urine Catheterized - Mccarthy Catheter Marian albicans Assessment and Plan (1) Hydronephrosis: Status: Acute (2) Fecal impaction: Status: Acute (3) Acute urinary retention: Status: Acute (4) COVID-19: Status: Acute (5) Non-ST elevated myocardial infarction: Status: Acute (6) UTI (urinary tract infection): Status: Acute Assessment and Plan: 81yo F with AF on rivaroxaban, hx VT, HFpEF, HTN, HLD, CAD, PFO, COPD, sarcoidosis who was recently admitted to this hospital 11/01/21-11/14/21 with weakness due to UTI and PNA, discharged home and presenting after not eating or drinking and found to be hypoxic, tachycardic, and tachypneic with Covid-19 infection, NSTEMI, UTI, hydroureteronephrosis with bladder outlet obstruction, and fecal impaction with stercoral colitis # acute hypoxic resp failure likely due to COVID and COPD exacerbation Hypoxia resolved finger oximetry 94% on room air ?? unvaccinated + high-risk for severe disease ,on remdesivir day 03/11? + dexamethasone /10d ?? continue albuterol inhalers and? ICS/LABA inhaler ?? Seen by ID she recommended dexamethasone and remdesivir # viral sepsis - symptoms of sepsis tachycardia and tachypnea resolved # chronic normocytic anemia noted to have drop in hematocrit likely due to acute infection no overt bleeding noted patient on aspirin and Xarelto , repeat hematocrit is stable # NSTEMI - likely type 2 demand related from tachycardia/Covid-19 continue ASA , beta- blockers and statin seen by Cardiology they agree with current treatment # UTI - noted to have cloudy urine with pus, blood cultures no growth, urine culture grew greater than 100,000 Marian albicans, stopped IV ceftriaxone after 3 days # hydroureteronephrosis # bladder outlet obstruction,seen by Urology renal ultrasound obtained that sh owed clearance of hydronephrosis and showed mild perinephric fluid collection left kidney, will DC Mccarthy catheter give voiding trial Question cause of bladder obstruction, follow clinical course re-consult Urology if noted to have recurrent issues with voiding. # stercoral colitis ?? patient now with stool incontinence, not on stool softeners likely due to antibiotics, check stool for C diff # CAD - continue statin, rivaroxaban, carvedilol, and lisinopril # HTN - blood pressure is stable on Coreg, due to low blood pressure readings lisinopril discontinued will follow blood pressure closely # diabetes mellitus type 2 on metformin, blood sugars elevated likely due to Decadron , continue insulin sliding scale, resume metformin upon discharge # pAF - continue carvedilol for rate control, anticoagulate with rivaroxaban # stage II pressure ulcer of sacral area apply triad, frequent position change # generalized weakness was living alone in an elderly housing apartment and ambulating with no assistive device, now generalized weakness likely due to viral sepsis, nstemi, hypoxia will obtain PT eval, continue supportive care During recent hospitalization was recommended short-term rehab however patient went home to live with son. # VTE ppx - rivaroxaban # code - full Quality Stroke Does the patient have a stroke diagnosis?: No VTE Prior VTE?: No VTE Risk Level:: Medical - moderate - high VTE Device Contraindication: N/A - Device Ordered VTE Drug Contraindication: N/A - Med Ordered
[2021-11-22 16:42] LABS: Glucose, Whole Blood 264 mg/dL (60-115)
[2021-11-22] MEDS: Insulin Lispro 100 UNIT/ML 3 ML VIAL SUBCUT ×2 (16:53→22:08)
[2021-11-22 19:43] LABS: Glucose, Whole Blood 306 mg/dL (60-115)
[2021-11-22] MEDS: Famotidine 20 MG TABLET PO (22:09)
[2021-11-22] MEDS: Remdesivir 100 MG in 0.9 % Sodium Chloride 230 ML 115 MG IV (22:10)
[2021-11-23] VITALS (9 sets, daily range): BP systolic 118–152; BP diastolic 59–88; PULSE 58–88; RESP 18–20; TEMP 36.6–37; O2SAT 91–99
[2021-11-23 07:38] LABS: Glucose, Whole Blood 93 mg/dL (60-115)
[2021-11-23] MEDS: Fluticasone/Vilanterol 200/25 BLST.W.DEV 1 PUFF INHALE (08:10)
[2021-11-23] MEDS: Albuterol Sulfate 90 MCG 8 GM INHALER 4 PUFF INHALE ×3 (08:13→16:02)
[2021-11-23] MEDS: Famotidine 20 MG TABLET PO ×2 (10:13→23:01)
[2021-11-23] MEDS: Atorvastatin Calcium 40 MG TABLET PO (10:13)
[2021-11-23] MEDS: dexAMETHasone sod phosphate 4 MG/ML VIAL 6 MG IVPUSH (10:14)
[2021-11-23] MEDS: carvediloL 12.5 MG TABLET PO ×2 (10:14→23:01)
[2021-11-23] MEDS: Aspirin 81 MG TAB.CHEW PO (10:14)
[2021-11-23] MEDS: Gabapentin 600 MG TABLET 1200 MG PO ×2 (10:14→23:01)
[2021-11-23] MEDS: 0.9 % Sodium Chloride Flush 3 ML SYRINGE IVFLUSH ×3 (10:15→23:02)
[2021-11-23] MEDS: Rivaroxaban 20 MG TABLET PO (10:23)
[2021-11-23 11:32] LABS: Glucose, Whole Blood 105 mg/dL (60-115)
--- NOTE | 2021-11-23 11:43 | P.PNIM_ITS ---
Subjective Subjective Date of Service: 11/23/21 Interval History: Shortness of breath improved, on 2L O2 via NC. No chest pain. No fever. Review of Systems Review of Systems: Yes all other systems are reviewed and are negative Physical Exam Vital Signs: Vital Signs: Last Vital Signs Temp 97.8 F 11/23/21 11:24 Pulse 88 11/23/21 11:24 Resp 18 11/23/21 11:24 BP 148/84 H 11/23/21 11:24 Pulse Ox 99 11/23/21 11:24 Oxygen Flow Rate 3 11/18/21 11:53 BMI result Body Mass Index 25.9 Gen: in no acute distress HEENT: sclera anicteric, moist mucus membranes Neck: supple Lungs: diminished breath sounds throughout Heart: regular rate and rhythm, no murmurs Abd: soft, non-tender, non-distended Ext: no edema Skin: candidiasis of groin Neuro: alert and oriented x3, no focal findings Psych: appropriate affect Objective Data Active Medications Acetaminophen (Acetaminophen 325 Mg Tablet) 650 mg PO Q6H PRN PRN Reason: Pain, Mild (Pain Scale 1-3) Last Admin: 11/21/21 12:49 Dose: 650 mg Documented by: YAN Albuterol Sulfate (Albuterol Sulfate 90 Mcg 8 Gm Inhaler) 4 puff INHALE RQ4H WHILE AWAKE [facility] Last Admin: 11/23/21 08:13 Dose: 4 puff Documented by: IAN Albuterol Sulfate (Albuterol Sulfate 90 Mcg 8 Gm Inhaler) 4 puff INHALE Q2H PRN PRN Reason: shortness of breath or wheeze Aspirin (Aspirin 81 Mg Tab.Chew) 81 mg PO DAILY [facility] Last Admin: 11/23/21 10:14 Dose: 81 mg Documented by: LETTY Atorvastatin Calcium (Atorvastatin Calcium 40 Mg Tablet) 40 mg PO DAILY [facility] Last Admin: 11/23/21 10:13 Dose: 40 mg Documented by: LETTY Carvedilol (Carvedilol 12.5 Mg Tablet) 12.5 mg PO BID [facility]; Protocol Last Admin: 11/23/21 10:14 Dose: 12.5 mg Documented by: LETTY Dexamethasone Sodium Phosphate (Dexamethasone Sod Phosphate 4 Mg/Ml Vial) 6 mg IVPUSH DAILY [facility] Stop: 11/27/21 09:01 Last Admin: 11/23/21 10:14 Dose: 6 mg Documented by: LETTY Dextrose (Dextrose 50 % 25 Gm/50 Ml Vial) 25 gm IVPUSH Q15M PRN; Protocol PRN Reason: per Hypoglycemia Standing Ord. Famotidine (Famotidine 20 Mg Tablet) 20 mg PO BID [facility] Last Admin: 11/23/21 10:13 Dose: 20 mg Documented by: LETTY Fluticasone/Vilanterol (Fluticasone/Vilanterol 200/25 Blst.W.Dev) 1 puff INHALE RDAILY [facility] Last Admin: 11/23/21 08:10 Dose: 1 puff Documented by: IAN Gabapentin (Gabapentin 600 Mg Tablet) 1,200 mg PO BID [facility] Last Admin: 11/23/21 10:14 Dose: 1,200 mg Documented by: LETTY Glucose (Glucose Gel 15 Gm Gel..Gram.) 15 gm PO Q15M PRN; Protocol PRN Reason: per Hypoglycemia Standing Ord. Insulin Human Lispro (Insulin Lispro 100 Unit/Ml 3 Ml Vial) 0 unit SUBCUT [facility]; Protocol Last Admin: 11/23/21 08:35 Dose: Not Given Documented by: LETTY Non-Admin Reason: No Insulin Coverage Nystatin (Nystatin Powder 15 Gm Bottle) 1 appl TOPICAL BID [facility]; Protocol Last Admin: 11/22/21 22:09 Dose: Not Given Documented by: PAULA Non-Admin Reason: See Note Ondansetron HCl (Ondansetron Hcl 4 Mg/2 Ml Vial) 4 mg IVPUSH Q8H PRN PRN Reason: Nausea and Vomiting Last Admin: 11/21/21 12:49 Dose: 4 mg Documented by: YAN Rivaroxaban (Rivaroxaban 20 Mg Tablet) 20 mg PO DAILY [facility] Last Admin: 11/23/21 10:23 Dose: 20 mg Documented by: LETTY Sodium Chloride (0.9 % Sodium Chloride Flush 3 Ml Syringe) [facility] Last Admin: 11/23/21 10:15 Dose: 3 ml Documented by: LETTY Labs CBC & Chem 7: 11/22/21 06:19 01/16/22 06:19 Labs: Laboratory Results - last 24 hr 11/22/21 11/22/21 11/23/21 16:28 19:39 07:14 POC Glucose 264 H 306 H 93 11/23/21 11:24 POC Glucose 105 TTE 11/20/21 - The left ventricular systolic function is mild to moderately ? decreased.? The visually estimated ejection fraction is between? 40-45%.? - There is mild calcification of the aortic valve. ? - There is moderate tricuspid valve regurgitation. ? - There is a small loculated pericardial effusion overlying the? left ventricle.? Assessment and Plan (1) Hydronephrosis: Status: Acute (2) Fecal impaction: Status: Acute (3) Acute urinary retention: Status: Acute (4) COVID-19: Status: Acute (5) Non-ST elevated myocardial infarction: Status: Acute (6) UTI (urinary tract infection): Status: Acute Assessment and Plan: hospital d#6 81yo F with AF on rivaroxaban, hx VT, HFpEF, HTN, HLD, CAD, PFO, COPD, sarcoidosis who was recently admitted to this hospital 11/01/21-11/14/21 with rubina murrieta due to UTI and PNA discharged home and presenting after not eating or drinking found to be hypoxic, tachycardic, and tachypneic with Covid-19 infection, NSTEMI, UTI, hydroureteronephrosis with bladder outlet obstruction, and fecal impaction with stercoral colitis # acute hypoxic respiratory failure due to Covid-19 infection and COPD exacerbation - wean O2 as tolerated - completed 5 of remdesivir, on dexamethasone d#05/16 - continue albuterol HFA, ICS/LABA controller # viral sepsis - symptoms of sepsis (tachycardia and tachypnea) have resolved # chronic normocytic anemia - noted to have drop in hematocrit likely due to acute infection; no overt bleeding noted; patient on aspirin and Xarelt; repeat hematocrit is stable # NSTEMI - likely type 2 demand related from tachycardia/Covid-19 - continue ASA , beta-blockers and statin; seen by Cardiology they agree with current treatment # UTI - noted to have cloudy urine with pus; blood cultures no growth; urine culture grew greater than 100,000 Marian albicans; stopped IV ceftriaxone after 3 days # hydroureteronephrosis # bladder outlet obstructio - seen by Urology; renal ultrasound obtained that showed clearance of hydronephrosis and showed mild perinephric fluid collection left kidney; Mccarthy out and voiding on own - question cause of bladder obstruction, follow clinical course and re-consult Urology if noted to have recurrent issues with voiding # stercoral colitis - patient now with stool incontinence, not on stool softeners; likely due to antibiotics; check stool for C diff # CAD - continue statin, rivaroxaban, carvedilol, and lisinopril # HTN - blood pressure is stable on Coreg, due to low blood pressure reading - lisinopril discontinued will follow blood pressure closely # diabetes mellitus type 2 - on metformin, blood sugars elevated likely due to Decadron , continue insulin sliding scale, resume metformin upon discharge # pAF - continue carvedilol for rate control, anticoagulate with rivaroxaban # stage II pressure ulcer of sacral area - apply Triad, frequent position change # generalized weakness - was living alone in an elderly housing apartment and ambulating with no assistive device, now with generalized weakness likely due to viral sepsis, NSTEMI, and hypoxia - STR recommended # VTE ppx - rivaroxaban # code - full # dispo - STR Quality Stroke Does the patient have a stroke diagnosis?: No VTE Prior VTE?: No VTE Risk Level:: Medical - moderate - high VTE Device Contraindication: N/A - Device Ordered VTE Drug Contraindication: N/A - Med Ordered
--- NOTE | 2021-11-23 15:15 | MHC.CM.PN ---
PT recommend STR. Patient able to transfer with [facility]. Now on RA at rest. No SNF beds available today. Spoke with son, Jesus. He reports he stayed with patient for 1 week prior to hospitalization, but she refused to allow him to care for her so she would need SNF. Informed of no beds today. Will continue bed search
--- NOTE | 2021-11-23 15:28 | MHC.CLN ---
NUTRITION CONSULT FOR SKIN, RED ROJAS AREA AND BUTTOCK. NOT CLASSIFIED PRESSURE INJURY ON WOUND ASSESSMENT. CONTINUE TO FOLLOW WEEKLY.
[2021-11-23 16:22] LABS: Glucose, Whole Blood 265 mg/dL (60-115)
[2021-11-23] MEDS: Insulin Lispro 100 UNIT/ML 3 ML VIAL SUBCUT ×2 (17:00→23:02)
[2021-11-23 21:18] LABS: Glucose, Whole Blood 279 mg/dL (60-115)
[2021-11-23] MEDS: Nystatin Powder 15 GM BOTTLE 1 APPL TOPICAL (23:03)
[2021-11-24] VITALS (10 sets, daily range): BP systolic 113–131; BP diastolic 57–76; PULSE 66–86; RESP 18–20; TEMP 36.1–37; O2SAT 92–100
[2021-11-24 06:42] LABS: Hematocrit 31.5 % (37.0-47.0); Hemoglobin 10.5 g/dl (12.0-16.0); Mean Corpuscular HGB Conc 33.3 g/dl (31.0-35.0); Mean Corpuscular Hemoglobin 31.2 pg (27.0-33.0); Mean Corpuscular Volume 93.5 fL (80.0-98.0); Mean Platelet Volume 9.5 fL (9.4-12.3); Platelet Count 234 X10*3/uL (160-400); Red Blood Count 3.37 X10*6/uL (4.20-5.50); Red Cell Distribution Width 13.2 % (11.0-16.0); White Blood Count 7.5 X10*3/uL (4.8-10.8)
[2021-11-24 06:50] LABS: Anion Gap 11 (12-20); Blood Urea Nitrogen 21 mg/dL (9-16); C Reactive Protein 0.79 mg/dL (< or = 0.50); Calcium 8.1 mg/dL (8.4-10.2); Carbon Dioxide 31 mmol/L (22-29); Chloride 98 mmol/L (96-108); Creatinine Clr Calc Pharmacy 57.1; Estimated Glomerular Filt Rate > 60; Glucose Random 198 mg/dL (60-115); Potassium 3.5 mmol/L (3.3-5.1); Sodium 136 mmol/L (135-145)
[2021-11-24 08:01] LABS: Glucose, Whole Blood 168 mg/dL (60-115)
[2021-11-24] MEDS: Albuterol Sulfate 90 MCG 8 GM INHALER 4 PUFF INHALE ×4 (08:10→21:27)
[2021-11-24] MEDS: Fluticasone/Vilanterol 200/25 BLST.W.DEV 1 PUFF INHALE (08:10)
[2021-11-24] MEDS: 0.9 % Sodium Chloride Flush 3 ML SYRINGE IVFLUSH ×3 (08:29→21:02)
[2021-11-24] MEDS: carvediloL 12.5 MG TABLET PO ×2 (08:29→21:01)
[2021-11-24] MEDS: Aspirin 81 MG TAB.CHEW PO (08:29)
[2021-11-24] MEDS: Insulin Lispro 100 UNIT/ML 3 ML VIAL SUBCUT ×4 (08:29→21:02)
[2021-11-24] MEDS: Rivaroxaban 20 MG TABLET PO (08:29)
[2021-11-24] MEDS: Famotidine 20 MG TABLET PO ×2 (08:29→21:01)
[2021-11-24] MEDS: dexAMETHasone sod phosphate 4 MG/ML VIAL 6 MG IVPUSH (08:30)
[2021-11-24] MEDS: Gabapentin 600 MG TABLET 1200 MG PO ×2 (08:30→21:01)
[2021-11-24] MEDS: Atorvastatin Calcium 40 MG TABLET PO (08:30)
[2021-11-24] MEDS: Nystatin Powder 15 GM BOTTLE 1 APPL TOPICAL ×2 (08:40→21:08)
[2021-11-24 11:02] LABS: Glucose, Whole Blood 267 mg/dL (60-115)
--- NOTE | 2021-11-24 13:13 | HO.PM.IMPN ---
Subjective Subjective Date of Service: 11/24/21 Interval History: Weaned off O2 Very weak Cough improved No chest pain Review of Systems Review of Systems: Yes all other systems are reviewed and are negative Physical Exam Vital Signs: Vital Signs: Last Vital Signs Temp 98.3 F 11/24/21 11:05 Pulse 73 11/24/21 12:32 Resp 20 11/24/21 12:32 BP 131/64 11/24/21 11:05 Pulse Ox 92 11/24/21 11:05 Oxygen Flow Rate 3 11/18/21 11:53 BMI result Body Mass Index 25.9 Gen: in no acute distress HEENT: sclera anicteric, moist mucus membranes Neck: supple Lungs: diminished breath sounds throughout Heart: regular rate and rhythm, no murmurs Abd: soft, non-tender, non-distended Ext: no edema Skin: candidiasis of groin Neuro: alert and oriented x3, no focal findings Psych: appropriate affect Objective Data Active Medications Acetaminophen (Acetaminophen 325 Mg Tablet) 650 mg PO Q6H PRN PRN Reason: Pain, Mild (Pain Scale 1-3) Last Admin: 11/21/21 12:49 Dose: 650 mg Documented by: YAN Albuterol Sulfate (Albuterol Sulfate 90 Mcg 8 Gm Inhaler) 4 puff INHALE RQ4H WHILE AWAKE [facility] Last Admin: 11/24/21 12:30 Dose: 4 puff Documented by: IAN Albuterol Sulfate (Albuterol Sulfate 90 Mcg 8 Gm Inhaler) 4 puff INHALE Q2H PRN PRN Reason: shortness of breath or wheeze Aspirin (Aspirin 81 Mg Tab.Chew) 81 mg PO DAILY [facility] Last Admin: 11/24/21 08:29 Dose: 81 mg Documented by: SHAUNA Atorvastatin Calcium (Atorvastatin Calcium 40 Mg Tablet) 40 mg PO DAILY [facility] Last Admin: 11/24/21 08:30 Dose: 40 mg Documented by: SHAUNA Carvedilol (Carvedilol 12.5 Mg Tablet) 12.5 mg PO BID [facility]; Protocol Last Admin: 11/24/21 08:29 Dose: 12.5 mg Documented by: SHAUNA Dexamethasone Sodium Phosphate (Dexamethasone Sod Phosphate 4 Mg/Ml Vial) 6 mg IVPUSH DAILY [facility] Stop: 11/27/21 09:01 Last Admin: 11/24/21 08:30 Dose: 6 mg Documented by: SHAUNA Dextrose (Dextrose 50 % 25 Gm/50 Ml Vial) 25 gm IVPUSH Q15M PRN; Protocol PRN Reason: per Hypoglycemia Standing Ord. Famotidine (Famotidine 20 Mg Tablet) 20 mg PO BID [facility] Last Admin: 11/24/21 08:29 Dose: 20 mg Documented by: SHAUNA Fluticasone/Vilanterol (Fluticasone/Vilanterol 200/25 Blst.W.Dev) 1 puff INHALE RDAILY [facility] Last Admin: 11/24/21 08:10 Dose: 1 puff Documented by: IAN Gabapentin (Gabapentin 600 Mg Tablet) 1,200 mg PO BID [facility] Last Admin: 11/24/21 08:30 Dose: 1,200 mg Documented by: SHAUNA Glucose (Glucose Gel 15 Gm Gel..Gram.) 15 gm PO Q15M PRN; Protocol PRN Reason: per Hypoglycemia Standing Ord. Insulin Human Lispro (Insulin Lispro 100 Unit/Ml 3 Ml Vial) 0 unit SUBCUT QIDACHS [facility]; Protocol Last Admin: 11/24/21 11:45 Dose: 6 unit Documented by: SHAUNA Nystatin (Nystatin Powder 15 Gm Bottle) 1 appl TOPICAL BID [facility]; Protocol Last Admin: 11/24/21 08:40 Dose: 1 appl Documented by: SHAUNA Ondansetron HCl (Ondansetron Hcl 4 Mg/2 Ml Vial) 4 mg IVPUSH Q8H PRN PRN Reason: Nausea and Vomiting Last Admin: 11/21/21 12:49 Dose: 4 mg Documented by: YAN Rivaroxaban (Rivaroxaban 20 Mg Tablet) 20 mg PO DAILY [facility] Last Admin: 11/24/21 08:29 Dose: 20 mg Documented by: SHAUNA Sodium Chloride (0.9 % Sodium Chloride Flush 3 Ml Syringe) [facility] Last Admin: 11/24/21 08:29 Dose: 3 ml Documented by: SHAUNA Labs CBC & Chem 7: 11/24/21 06:00 11/24/21 06:00 Labs: Laboratory Results - last 24 hr 11/23/21 11/23/21 11/24/21 15:46 21:15 06:00 MCV MCH MCHC RDW Plt Count MPV Absolute Nucleated RBC Nucleated RBC % (auto) Anion Gap 11 L Estim Creat Clear Calc 57.1 Estimated GFR > 60 POC Glucose 265 H 279 H Random Glucose 198 H Calcium 8.1 L C-Reactive Protein 0.79 H 11/24/21 11/24/21 11/24/21 06:00 07:58 10:58 MCV 93.5 MCH 31.2 MCHC 33.3 RDW 13.2 Plt Count 234 MPV 9.5 Absolute Nucleated RBC 0.000 Nucleated RBC % (auto) 0.0 Anion Gap Estim Creat Clear Calc Estimated GFR POC Glucose 168 H 267 H Random Glucose Calcium C-Reactive Protein Microbiology Microbiology Results: Microbiology 11/18/21 12:17 Blood Culture - Final Blood - Venous No growth after 5 days. 11/18/21 12:19 Blood Culture - Final Blood - Venous No growth after 5 days. Assessment and Plan (1) Hydronephrosis: Status: Acute (2) Fecal impaction: Status: Acute (3) Acute urinary retention: Status: Acute (4) COVID-19: Status: Acute (5) Non-ST elevated myocardial infarction: Status: Acute (6) UTI (urinary tract infection): Status: Acute Assessment and Plan: hospital d#7 81yo F with AF on rivaroxaban, hx VT, HFpEF, HTN, HLD, CAD, PFO, COPD, sarcoidosis who was recently admitted to this hospital 11/01/21-11/14/21 with weakness due to UTI and PNA and discharged home presenting after not eating or drinking found to be hypoxic, tachycardic, and tachypneic with Covid-19 infection, NSTEMI, UTI, hydroureteronephrosis with bladder outlet obstruction, and fecal impaction with stercoral colitis # acute hypoxic respiratory failure due to Covid-19 infection and COPD exacerbation - weaned off O2 - completed 5 of remdesivir, on dexamethasone d#06/16 - continue albuterol HFA, ICS/LABA controller # viral sepsis - symptoms of sepsis (tachycardia and tachypnea) have resolved # chronic normocytic anemia - noted to have drop in hematocrit likely due to acute infection; no overt bleeding noted; patient on aspirin and rivaroxaban; repeat hematocrit is stable # NSTEMI - likely type 2 demand related from tachycardia/Covid-19 - continue ASA , beta-blockers and statin; seen by Cardiology they agree with current treatment # UTI - noted to have cloudy urine with pus; blood cultures no growth; urine culture grew greater than 100,000 Marian albicans; stopped IV ceftriaxone after 3 days # hydroureteronephrosis # bladder outlet obstruction - seen by Urology; renal ultrasound obtained that showed clearance of hydronephrosis and showed mild perinephric fluid collection left kidney; Mccarthy out and voiding on own - question cause of bladder obstruction, follow clinical course and re-consult Urology if noted to have recurrent issues with voiding # stercoral colitis - patient now with stool incontinence, not on stool softeners; likely due to antibiotics; check stool for C diff # CAD - continue statin, rivaroxaban, carvedilol, and lisinopril # HTN - blood pressure is stable on carvedilol - due to low blood pressure reading, lisinopril discontinued # diabetes mellitus type 2 - on metformin, blood sugars elevated likely due to Decadron , continue insulin sliding scale, resume metformin upon discharge # pAF - continue carvedilol for rate control, anticoagulate with rivaroxaban # stage II pressure ulcer of sacral area - apply Triad, frequent position change # generalized weakness - was living alone in an elderly housing apartment and ambulating with no assistive device, now with generalized weakness likely due to viral sepsis, NSTEMI, and hypoxia - STR recommended # VTE ppx - rivaroxaban # code - full # dispo - STR Quality Stroke Does the patient have a stroke diagnosis?: No VTE Prior VTE?: No VTE Risk Level:: Medical - moderate - high VTE Device Contraindication: N/A - Device Ordered VTE Drug Contraindication: N/A - Med Ordered
[2021-11-24 16:08] LABS: Glucose, Whole Blood 276 mg/dL (60-115)
[2021-11-24 19:50] LABS: Glucose, Whole Blood 347 mg/dL (60-115)
[2021-11-25] VITALS (9 sets, daily range): BP systolic 134–163; BP diastolic 67–81; PULSE 61–97; RESP 15–22; TEMP 36.4–37; O2SAT 90–97
[2021-11-25 07:12] LABS: Glucose, Whole Blood 173 mg/dL (60-115)
[2021-11-25] MEDS: Albuterol Sulfate 90 MCG 8 GM INHALER 4 PUFF INHALE ×2 (08:10→15:41)
[2021-11-25] MEDS: Fluticasone/Vilanterol 200/25 BLST.W.DEV 1 PUFF INHALE (08:10)
[2021-11-25] MEDS: Insulin Lispro 100 UNIT/ML 3 ML VIAL SUBCUT ×4 (09:22→21:50)
[2021-11-25] MEDS: Gabapentin 600 MG TABLET 1200 MG PO ×2 (09:23→21:49)
[2021-11-25] MEDS: carvediloL 12.5 MG TABLET PO ×2 (09:23→21:49)
[2021-11-25] MEDS: Atorvastatin Calcium 40 MG TABLET PO (09:23)
[2021-11-25] MEDS: Rivaroxaban 20 MG TABLET PO (09:23)
[2021-11-25] MEDS: dexAMETHasone sod phosphate 4 MG/ML VIAL 6 MG IVPUSH (09:23)
[2021-11-25] MEDS: Famotidine 20 MG TABLET PO ×2 (09:23→21:49)
[2021-11-25] MEDS: Aspirin 81 MG TAB.CHEW PO (09:24)
[2021-11-25 12:09] LABS: Glucose, Whole Blood 267 mg/dL (60-115)
[2021-11-25 13:38] LABS: COVID-19 Test Positive (Negative)
--- NOTE | 2021-11-25 15:13 | P.PNIM_ITS ---
Subjective Subjective Date of Service: 11/25/21 Interval History: feels very weak remains off O2 no chest pain no fever Review of Systems Review of Systems: Yes all other systems are reviewed and are negative Physical Exam Vital Signs: Vital Signs: Last Vital Signs Temp 98 F 11/25/21 11:37 Pulse 72 11/25/21 11:37 Resp 15 11/25/21 11:37 BP 134/67 11/25/21 11:37 Pulse Ox 97 11/25/21 11:37 Oxygen Flow Rate 3 11/18/21 11:53 BMI result Body Mass Index 25.9 Gen: in no acute distress but appears very frail HEENT: sclera anicteric, moist mucus membranes Neck: supple Lungs: diminished breath sounds throughout Heart: regular rate and rhythm, no murmurs Abd: soft, non-tender, non-distended Ext: no edema Neuro: alert and oriented x3, no focal findings Psych: appropriate affect Objective Data Active Medications Acetaminophen (Acetaminophen 325 Mg Tablet) 650 mg PO Q6H PRN PRN Reason: Pain, Mild (Pain Scale 1-3) Last Admin: 11/21/21 12:49 Dose: 650 mg Documented by: YAN Albuterol Sulfate (Albuterol Sulfate 90 Mcg 8 Gm Inhaler) 4 puff INHALE RQ4H WHILE AWAKE [facility] Last Admin: 11/25/21 11:50 Dose: Not Given Documented by: JESSA Non-Admin Reason: Patient Refused Albuterol Sulfate (Albuterol Sulfate 90 Mcg 8 Gm Inhaler) 4 puff INHALE Q2H PRN PRN Reason: shortness of breath or wheeze Aspirin (Aspirin 81 Mg Tab.Chew) 81 mg PO DAILY [facility] Last Admin: 11/25/21 09:24 Dose: 81 mg Documented by: AGNIESZKA Atorvastatin Calcium (Atorvastatin Calcium 40 Mg Tablet) 40 mg PO DAILY [facility] Last Admin: 11/25/21 09:23 Dose: 40 mg Documented by: AGNIESZKA Carvedilol (Carvedilol 12.5 Mg Tablet) 12.5 mg PO BID [facility]; Protocol Last Admin: 11/25/21 09:23 Dose: 12.5 mg Documented by: AGNIESZKA Dexamethasone Sodium Phosphate (Dexamethasone Sod Phosphate 4 Mg/Ml Vial) 6 mg IVPUSH DAILY [facility] Stop: 11/27/21 09:01 Last Admin: 11/25/21 09:23 Dose: 6 mg Documented by: AGNIESZKA Dextrose (Dextrose 50 % 25 Gm/50 Ml Vial) 25 gm IVPUSH Q15M PRN; Protocol PRN Reason: per Hypoglycemia Standing Ord. Famotidine (Famotidine 20 Mg Tablet) 20 mg PO BID [facility] Last Admin: 11/25/21 09:23 Dose: 20 mg Documented by: AGNIESZKA Fluticasone/Vilanterol (Fluticasone/Vilanterol 200/25 Blst.W.Dev) 1 puff INHALE RDAILY [facility] Last Admin: 11/25/21 08:10 Dose: 1 puff Documented by: JESSA Gabapentin (Gabapentin 600 Mg Tablet) 1,200 mg PO BID [facility] Last Admin: 11/25/21 09:23 Dose: 1,200 mg Documented by: AGNIESZKA Glucose (Glucose Gel 15 Gm Gel..Gram.) 15 gm PO Q15M PRN; Protocol PRN Reason: per Hypoglycemia Standing Ord. Insulin Human Lispro (Insulin Lispro 100 Unit/Ml 3 Ml Vial) 0 unit SUBCUT QIDACHS [facility]; Protocol Last Admin: 11/25/21 13:00 Dose: 6 unit Documented by: AGNIESZKA Nystatin (Nystatin Powder 15 Gm Bottle) 1 appl TOPICAL BID [facility]; Protocol Last Admin: 11/25/21 09:24 Dose: Not Given Documented by: AGNIESZKA Non-Admin Reason: Unable to Scan Barcode Ondansetron HCl (Ondansetron Hcl 4 Mg/2 Ml Vial) 4 mg IVPUSH Q8H PRN PRN Reason: Nausea and Vomiting Last Admin: 11/21/21 12:49 Dose: 4 mg Documented by: YAN Rivaroxaban (Rivaroxaban 20 Mg Tablet) 20 mg PO DAILY [facility] Last Admin: 11/25/21 09:23 Dose: 20 mg Documented by: AGNIESZKA Sodium Chloride (0.9 % Sodium Chloride Flush 3 Ml Syringe) [facility] Last Admin: 11/25/21 12:15 Dose: Not Given Documented by: AGNIESZKA Non-Admin Reason: IV Running Labs CBC & Chem 7: 11/24/21 06:00 11/24/21 06:00 Labs: Laboratory Results - last 24 hr 11/24/21 11/24/2122 16:05 19:47 07:04 POC Glucose 276 H 347 H 173 H COVID-19 ([facility]) COVID-19 Clin Com 11/25/21 11/25/21 12:04 12:45 POC Glucose 267 H COVID-19 ([facility]) Positive A COVID-19 Clin Com See Note Assessment and Plan (1) Hydronephrosis: Status: Acute (2) Fecal impaction: Status: Acute (3) Acute urinary retention: Status: Acute (4) COVID-19: Status: Acute (5) Non-ST elevated myocardial infarction: Status: Acute (6) UTI (urinary tract infection): Status: Acute Assessment and Plan: hospital d#8 81yo F with AF on rivaroxaban, hx VT, HFpEF, HTN, HLD, CAD, PFO, COPD, sarcoidosis who was recently admitted to this hospital 11/01/21-11/14/21 with weakness due to UTI and PNA and discharged home presenting after not eating or drinking found to be hypoxic, tachycardic, and tachypneic with Covid-19 infection also with NSTEMI, UTI, hydroureteronephrosis with bladder outlet obstruction, and fecal impaction with stercoral colitis # acute hypoxic respiratory failure due to Covid-19 infection and COPD exacerbation - weaned off O2 11/24/21 - completed 5 of remdesivir, on dexamethasone d#07/17 - continue albuterol HFA, ICS/LABA controller # viral sepsis - symptoms of sepsis (tachycardia and tachypnea) have resolved # chronic normocytic anemia - noted to have drop in hematocrit likely due to acute infection; no overt bleeding noted; patient on aspirin and rivaroxaban; repeat hematocrit is stable # NSTEMI - likely type 2 demand related from tachycardia/Covid-19 - continue ASA, beta-phoenix, and statin; seen by Cardiology they agree with current treatment # UTI - noted to have cloudy urine with pus; blood cultures no growth; urine culture grew greater than 100,000 Marian albicans; stopped IV ceftriaxone after 3 days # hydroureteronephrosis # bladder outlet obstruction - seen by Urology; renal ultrasound obtained that showed clearance of hydronephrosis and showed mild perinephric fluid collection left kidney; Mccarthy out and voiding on own - question cause of bladder obstruction, follow clinical course and re-consult Urology if noted to have recurrent issues with voiding # stercoral colitis - patient now with stool incontinence, not on stool softeners; likely due to antibiotics # CAD - continue statin, rivaroxaban, carvedilol, and lisinopril # HTN - blood pressure is stable on carvedilol - due to low blood pressure reading, lisinopril discontinued # diabetes mellitus type 2 - on metformin, blood sugars elevated likely due to Decadron , continue insulin sliding scale, resume metformin upon discharge # pAF - continue carvedilol for rate control, anticoagulate with rivaroxaban # stage II pressure ulcer of sacral area - apply Triad, frequent position change # generalized weakness - was living alone in an elderly housing apartment and ambulating with no assistive device, now with generalized weakness likely due to viral sepsis, NSTEMI, and hypoxia - STR recommended # VTE ppx - rivaroxaban # code - full # dispo - STR- awaiting response from Jodee Jacob Stroke Does the patient have a stroke diagnosis?: No VTE Prior VTE?: No VTE Risk Level:: Medical - moderate - high VTE Device Contraindication: N/A - Device Ordered VTE Drug Contraindication: N/A - Med Ordered
--- NOTE | 2021-11-25 15:15 | PC.NURSE ---
EFRAIN swabbed this AM, positive. Mccarthy removed at 1400 and 1200ml urine drained at that time.
[2021-11-25 16:31] LABS: Glucose, Whole Blood 261 mg/dL (60-115)
[2021-11-25 19:50] LABS: Glucose, Whole Blood 305 mg/dL (60-115)
[2021-11-25] MEDS: Nystatin Powder 15 GM BOTTLE 1 APPL TOPICAL (21:51)
[2021-11-26] VITALS (9 sets, daily range): BP systolic 115–152; BP diastolic 57–91; PULSE 71–111; RESP 19–22; TEMP 35.9–37.1; O2SAT 91–94
[2021-11-26] MEDS: 0.9 % Sodium Chloride Flush 3 ML SYRINGE IVFLUSH ×4 (00:51→21:06)
[2021-11-26 07:30] LABS: Glucose, Whole Blood 133 mg/dL (60-115)
[2021-11-26] MEDS: carvediloL 12.5 MG TABLET PO ×2 (08:48→21:04)
[2021-11-26] MEDS: Aspirin 81 MG TAB.CHEW PO (08:48)
[2021-11-26] MEDS: Famotidine 20 MG TABLET PO ×2 (08:48→21:04)
[2021-11-26] MEDS: Atorvastatin Calcium 40 MG TABLET PO (08:48)
[2021-11-26] MEDS: Rivaroxaban 20 MG TABLET PO (08:48)
[2021-11-26] MEDS: Gabapentin 600 MG TABLET 1200 MG PO ×2 (08:48→21:04)
[2021-11-26] MEDS: dexAMETHasone sod phosphate 4 MG/ML VIAL 6 MG IVPUSH (08:49)
[2021-11-26] MEDS: Nystatin Powder 15 GM BOTTLE 1 APPL TOPICAL ×2 (08:50→21:06)
[2021-11-26 11:15] LABS: Glucose, Whole Blood 223 mg/dL (60-115)
[2021-11-26] MEDS: Insulin Lispro 100 UNIT/ML 3 ML VIAL SUBCUT ×3 (11:58→21:07)
--- NOTE | 2021-11-26 14:57 | HO.PM.IMPN ---
Subjective Subjective Date of Service: 11/26/21 Interval History: Patient awake alert complaining of generalized weakness , otherwise denies fever chills, no other acute issues overnight. Review of Systems Review of Systems: Yes all other systems are reviewed and are negative Physical Exam Vital Signs: Vital Signs: Last Vital Signs Temp 97.7 F 11/26/21 11:11 Pulse 71 11/26/21 11:11 Resp 20 11/26/21 11:11 BP 115/58 L 11/26/21 11:11 Pulse Ox 94 11/26/21 11:11 Oxygen Flow Rate 3 11/18/21 11:53 BMI result Body Mass Index 25.9 Gen: Awake alert, no acute distress but appears very frail HEENT: sclera anicteric, moist mucus membranes Neck: supple, no JVD Lungs: diminished breath sounds , no crackles, no wheeze Heart: regular rate and rhythm, no murmurs Abd: soft, non-tender, non-distended Ext: no edema Neuro: alert and oriented x3, no focal findings Psych: appropriate affect Objective Data Active Medications Acetaminophen (Acetaminophen 325 Mg Tablet) 650 mg PO Q6H PRN PRN Reason: Pain, Mild (Pain Scale 1-3) Last Admin: 11/21/21 12:49 Dose: 650 mg Documented by: YAN Albuterol Sulfate (Albuterol Sulfate 90 Mcg 8 Gm Inhaler) 4 puff INHALE RQ4H WHILE AWAKE [facility] Last Admin: 11/26/21 11:33 Dose: Not Given Documented by: DALE Non-Admin Reason: Med Not Available Albuterol Sulfate (Albuterol Sulfate 90 Mcg 8 Gm Inhaler) 4 puff INHALE Q2H PRN PRN Reason: shortness of breath or wheeze Aspirin (Aspirin 81 Mg Tab.Chew) 81 mg PO DAILY [facility] Last Admin: 11/26/21 08:48 Dose: 81 mg Documented by: TOOTIE Atorvastatin Calcium (Atorvastatin Calcium 40 Mg Tablet) 40 mg PO DAILY [facility] Last Admin: 11/26/21 08:48 Dose: 40 mg Documented by: TOOTIE Carvedilol (Carvedilol 12.5 Mg Tablet) 12.5 mg PO BID [facility]; Protocol Last Admin: 11/26/21 08:48 Dose: 12.5 mg Documented by: TOOTIE Dexamethasone Sodium Phosphate (Dexamethasone Sod Phosphate 4 Mg/Ml Vial) 6 mg IVPUSH DAILY [facility] Stop: 11/27/21 09:01 Last Admin: 11/26/21 08:49 Dose: 6 mg Documented by: TOOTIE Dextrose (Dextrose 50 % 25 Gm/50 Ml Vial) 25 gm IVPUSH Q15M PRN; Protocol PRN Reason: per Hypoglycemia Standing Ord. Famotidine (Famotidine 20 Mg Tablet) 20 mg PO BID [facility] Last Admin: 11/26/21 08:48 Dose: 20 mg Documented by: TOOTIE Fluticasone/Vilanterol (Fluticasone/Vilanterol 200/25 Blst.W.Dev) 1 puff INHALE RDAILY [facility] Last Admin: 11/26/21 08:14 Dose: Not Given Documented by: DALE Non-Admin Reason: Med Not Available Gabapentin (Gabapentin 600 Mg Tablet) 1,200 mg PO BID [facility] Last Admin: 11/26/21 08:48 Dose: 1,200 mg Documented by: TOOTIE Glucose (Glucose Gel 15 Gm Gel..Gram.) 15 gm PO Q15M PRN; Protocol PRN Reason: per Hypoglycemia Standing Ord. Insulin Human Lispro (Insulin Lispro 100 Unit/Ml 3 Ml Vial) 0 unit SUBCUT QIDACHS [facility]; Protocol Last Admin: 11/26/21 11:58 Dose: 4 unit Documented by: TOOTIE Nystatin (Nystatin Powder 15 Gm Bottle) 1 appl TOPICAL BID [facility]; Protocol Last Admin: 11/26/21 08:50 Dose: 1 appl Documented by: TOOTIE Ondansetron HCl (Ondansetron Hcl 4 Mg/2 Ml Vial) 4 mg IVPUSH Q8H PRN PRN Reason: Nausea and Vomiting Last Admin: 11/21/21 12:49 Dose: 4 mg Documented by: YAN Rivaroxaban (Rivaroxaban 20 Mg Tablet) 20 mg PO DAILY [facility] Last Admin: 11/26/21 08:48 Dose: 20 mg Documented by: TOOTIE Sodium Chloride (0.9 % Sodium Chloride Flush 3 Ml Syringe) 3 ml IVFLUSH QSHIFT [facility] Last Admin: 11/26/21 08:48 Dose: 3 ml Documented by: TOOTIE Labs CBC & Chem 7: 11/24/21 06:00 11/24/21 06:00 Labs: Laboratory Results - last 24 hr 11/25/21 11/25/21 11/26/21 16:17 19:46 07:26 POC Glucose 261 H 305 H 133 H 11/26/21 11:09 POC Glucose 223 H Assessment and Plan (1) COVID-19: Status: Acute (2) Colitis: Status: Acute (3) Non-ST elevated myocardial infarction: Status: Acute (4) Type 2 diabetes mellitus with hyperglycemia: Status: Acute (5) Hypercholesterolemia: Status: Acute Assessment and Plan: 81yo F with AF on rivaroxaban, hx VT, HFpEF, HTN, HLD, CAD, PFO, COPD, sarcoidosis who was recently admitted to this hospital 11/01/21-11/14/21 with weakness due to UTI and PNA and discharged home presenting after not eating or drinking found to be hypoxic, tachycardic, and tachypneic with Covid-19 infection also with NSTEMI, UTI, hydroureteronephrosis with bladder outlet obstruction, and fecal impaction with stercoral colitis # acute hypoxic respiratory failure due to Covid-19 infection and COPD exacerbation - weaned off O2 11/24/21, completed 5 of remdesivir, last day on dexamethasone d#08/16 - continue albuterol HFA, ICS/LABA controller. # viral sepsis - symptoms of sepsis (tachycardia and tachypnea) have resolved # chronic normocytic anemia - noted to have drop in hematocrit likely due to acute infection; no overt bleeding noted; patient on aspirin and rivaroxaban; repeat hematocrit is stable # NSTEMI - likely type 2 demand related from tachycardia/Covid-19 - continue ASA, beta-phoenix, and statin; seen by Cardiology they agree with current treatment # UTI - noted to have cloudy urine with pus; blood cultures no growth; urine culture grew greater than 100,000 Marian albicans;? stopped IV ceftriaxone after 3 days # hydroureteronephrosis # bladder outlet obstruction - seen by Urology; renal ultrasound obtained that showed clearance of hydronephrosis and showed mild perinephric fluid collection left kidney; Mccarthy out and voiding on own - question cause of bladder obstruction, follow clinical course and re-consult Urology if noted to have recurrent issues with voiding # stercoral colitis - resolved # CAD - continue statin, rivaroxaban, and carvedilol, # HTN - blood pressure is stable on carvedilol, few high blood pressure readings lisinopril held continue to follow BP # diabetes mellitus type 2 ?- on metformin, blood sugars elevated likely due to Decadron , continue insulin sliding scale, last day of Decadron today # pAF - continue carvedilol for rate control, anticoagulate with rivaroxaban # stage II pressure ulcer of sacral area - apply Triad, frequent position change # generalized weakness - was living alone in an elderly housing apartment and ambulating with no assistive device, now with generalized weakness likely due to viral sepsis, NSTEMI, and hypoxia -? STR recommended # VTE ppx - rivaroxaban # code - full # dispo - STR- residential case manager arranging for safe discharge Quality Stroke Does the patient have a stroke diagnosis?: No VTE Prior VTE?: No VTE Risk Level:: Medical - moderate - high VTE Device Contraindication: N/A - Device Ordered VTE Drug Contraindication: N/A - Med Ordered
[2021-11-26 16:13] LABS: Glucose, Whole Blood 285 mg/dL (60-115)
[2021-11-26] MEDS: Albuterol Sulfate 90 MCG 8 GM INHALER 4 PUFF INHALE ×2 (16:18→16:21)
[2021-11-26 19:55] LABS: Glucose, Whole Blood 313 mg/dL (60-115)
[2021-11-27] VITALS (7 sets, daily range): BP systolic 135–161; BP diastolic 64–90; PULSE 73–108; RESP 16–20; TEMP 36.2–36.6; O2SAT 92–98
[2021-11-27 07:36] LABS: Glucose, Whole Blood 126 mg/dL (60-115)
[2021-11-27] MEDS: Fluticasone/Vilanterol 200/25 BLST.W.DEV 1 PUFF INHALE (08:40)
[2021-11-27] MEDS: Albuterol Sulfate 90 MCG 8 GM INHALER 4 PUFF INHALE (08:40)
[2021-11-27] MEDS: carvediloL 12.5 MG TABLET PO ×2 (09:04→21:44)
[2021-11-27] MEDS: Aspirin 81 MG TAB.CHEW PO (09:04)
[2021-11-27] MEDS: 0.9 % Sodium Chloride Flush 3 ML SYRINGE IVFLUSH ×3 (09:04→21:45)
[2021-11-27] MEDS: Gabapentin 600 MG TABLET 1200 MG PO ×2 (09:05→21:44)
[2021-11-27] MEDS: Rivaroxaban 20 MG TABLET PO (09:05)
[2021-11-27] MEDS: dexAMETHasone sod phosphate 4 MG/ML VIAL 6 MG IVPUSH (09:05)
[2021-11-27] MEDS: Famotidine 20 MG TABLET PO ×2 (09:05→21:44)
[2021-11-27] MEDS: Nystatin Powder 15 GM BOTTLE 1 APPL TOPICAL ×2 (09:05→21:45)
[2021-11-27] MEDS: Atorvastatin Calcium 40 MG TABLET PO (09:05)
[2021-11-27 10:54] LABS: Glucose, Whole Blood 238 mg/dL (60-115)
[2021-11-27] MEDS: Insulin Lispro 100 UNIT/ML 3 ML VIAL SUBCUT ×3 (11:48→21:44)
--- NOTE | 2021-11-27 12:35 | MHC.CM.PN ---
Female 81 Covid+ DP STR. Patient is not vaccinated. Multiple referrals sent out. Multiple facilities have declined to accept or follow. Jodee is following. She will transport via s.
--- NOTE | 2021-11-27 13:52 | P.PNIM_ITS ---
Subjective Subjective Date of Service: 11/27/21 Interval History: Complaining of weakness no events overnight. Review of Systems Review of Systems: Yes all other systems are reviewed and are negative Physical Exam Vital Signs: Vital Signs: Last Vital Signs Temp 97.8 F 11/27/21 11:55 Pulse 82 11/27/21 11:55 Resp 20 11/27/21 11:55 BP 138/72 11/27/21 11:55 Pulse Ox 93 11/27/21 11:55 Oxygen Flow Rate 3 11/18/21 11:53 BMI result Body Mass Index 25.9 Gen:? Awake alert, no acute distress but appears very frail HEENT: sclera anicteric, moist mucus membranes Neck: supple, no JVD Lungs: Clear to auscultation, no crackles, no wheeze Heart: regular rate and rhythm, no murmurs Abd: soft, non-tender, non-distended, bowel sounds audible Ext: no edema Neuro: alert and oriented x3, no focal findings Psych: appropriate affect Objective Data Active Medications Acetaminophen (Acetaminophen 325 Mg Tablet) 650 mg PO Q6H PRN PRN Reason: Pain, Mild (Pain Scale 1-3) Last Admin: 11/21/21 12:49 Dose: 650 mg Documented by: YAN Albuterol Sulfate (Albuterol Sulfate 90 Mcg 8 Gm Inhaler) 4 puff INHALE RQ4H WHILE AWAKE [facility] Last Admin: 11/27/21 11:29 Dose: Not Given Documented by: DALE Non-Admin Reason: Patient Asleep Albuterol Sulfate (Albuterol Sulfate 90 Mcg 8 Gm Inhaler) 4 puff INHALE Q2H PRN PRN Reason: shortness of breath or wheeze Last Admin: 11/27/21 08:40 Dose: 4 puff Documented by: VIANCA Aspirin (Aspirin 81 Mg Tab.Chew) 81 mg PO DAILY [facility] Last Admin: 11/27/21 09:04 Dose: 81 mg Documented by: YOHAN Atorvastatin Calcium (Atorvastatin Calcium 40 Mg Tablet) 40 mg PO DAILY [facility] Last Admin: 11/27/21 09:05 Dose: 40 mg Documented by: YOHAN Carvedilol (Carvedilol 12.5 Mg Tablet) 12.5 mg PO BID [facility]; Protocol Last Admin: 11/27/21 09:04 Dose: 12.5 mg Documented by: YOHAN Dextrose (Dextrose 50 % 25 Gm/50 Ml Vial) 25 gm IVPUSH Q15M PRN; Protocol PRN Reason: per Hypoglycemia Standing Ord. Famotidine (Famotidine 20 Mg Tablet) 20 mg PO BID [facility] Last Admin: 11/27/21 09:05 Dose: 20 mg Documented by: YOHAN Fluticasone/Vilanterol (Fluticasone/Vilanterol 200/25 Blst.W.Dev) 1 puff INHALE RDAILY [facility] Last Admin: 11/27/21 08:40 Dose: 1 puff Documented by: VIANCA Gabapentin (Gabapentin 600 Mg Tablet) 1,200 mg PO BID [facility] Last Admin: 11/27/21 09:05 Dose: 1,200 mg Documented by: YOHAN Glucose (Glucose Gel 15 Gm Gel..Gram.) 15 gm PO Q15M PRN; Protocol PRN Reason: per Hypoglycemia Standing Ord. Insulin Human Lispro (Insulin Lispro 100 Unit/Ml 3 Ml Vial) 0 unit SUBCUT QIDACHS [facility]; Protocol Last Admin: 11/27/21 11:48 Dose: 4 unit Documented by: YOHAN Nystatin (Nystatin Powder 15 Gm Bottle) 1 appl TOPICAL BID [facility]; Protocol Last Admin: 11/27/21 09:05 Dose: 1 appl Documented by: YOHAN Ondansetron HCl (Ondansetron Hcl 4 Mg/2 Ml Vial) 4 mg IVPUSH Q8H PRN PRN Reason: Nausea and Vomiting Last Admin: 11/21/21 12:49 Dose: 4 mg Documented by: YAN Rivaroxaban (Rivaroxaban 20 Mg Tablet) 20 mg PO DAILY [facility] Last Admin: 11/27/21 09:05 Dose: 20 mg Documented by: YOHAN Sodium Chloride (0.9 % Sodium Chloride Flush 3 Ml Syringe) [facility] Last Admin: 11/27/21 09:04 Dose: 3 ml Documented by: YOHAN Labs CBC & Chem 7: 11/24/21 06:00 11/24/21 06:00 Labs: Laboratory Results - last 24 hr 11/26/21 11/26/21 11/27/21 16:10 19:51 07:32 POC Glucose 285 H 313 H 126 H 11/27/21 10:50 POC Glucose 238 H Assessment and Plan (1) Generalized weakness: Status: Acute (2) Hydronephrosis: Status: Acute (3) Non-ST elevated myocardial infarction: Status: Acute (4) UTI (urinary tract infection): Status: Acute (5) Essential hypertension: Status: Acute Assessment and Plan: 81yo F with AF on rivaroxaban, hx VT, HFpEF, HTN, HLD, CAD, PFO, COPD, sarcoido sis who was recently admitted to this hospital 11/01/21-11/14/21 with weakness due to UTI and PNA and discharged home presenting after not eating or drinking found to be hypoxic, tachycardic, and tachypneic with Covid-19 infection also with NSTEMI, UTI, hydroureteronephrosis with bladder outlet obstruction, and fecal impaction with stercoral colitis # acute hypoxic respiratory failure due to Covid-19 infection and COPD exacerbation - weaned off O2 11/24/21, completed 5 of remdesivir, and 10 days of dexamethasone - continue albuterol HFA, ICS/LABA controller. # viral sepsis - symptoms of sepsis (tachycardia and tachypnea) have resolved # chronic normocytic anemia - noted to have drop in hematocrit likely due to acute infection; no overt bleeding noted; patient on aspirin and rivaroxaban; repeat hematocrit is stable # NSTEMI - likely type 2 demand related from tachycardia/Covid-19 - continue ASA, beta-phoenix, and statin; seen by Cardiology they agree with current treatment # UTI - noted to have cloudy urine with pus; blood cultures no growth; urine culture grew greater than 100,000 Marian albicans;? stopped IV ceftriaxone after 3 days # hydroureteronephrosis # bladder outlet obstruction - seen by Urology; renal ultrasound obtained that showed clearance of hydronephrosis and showed mild perinephric fluid collection left kidney; Mccarthy out and voiding on own - question cause of bladder obstruction, follow clinical course and re-consult Urology if noted to have recurrent issues with voiding # stercoral colitis - resolved # CAD - continue statin, rivaroxaban, and carvedilol, # HTN - blood pressure is stable on carvedilol, few high and low blood pressure readings, lisinopril held continue to follow BP # diabetes mellitus type 2 ?- on metformin, blood sugars elevated likely due to Decadron , continue insulin sliding scale, last day of Decadron today # pAF - continue carvedilol for rate control, anticoagulate with rivaroxaban # stage II pressure ulcer of sacral area - apply Triad, frequent position change # generalized weakness - was living alone in an elderly housing apartment and ambulating with no assistive device, now with generalized weakness likely due to viral sepsis, NSTEMI, and hypoxia -? STR recommended # VTE ppx - rivaroxaban # code - full # dispo - STR- watch case polisher arranging for safe discharge Quality Stroke Does the patient have a stroke diagnosis?: No VTE Prior VTE?: No VTE Risk Level:: Medical - moderate - high VTE Device Contraindication: N/A - Device Ordered VTE Drug Contraindication: N/A - Med Ordered
[2021-11-27 15:59] LABS: Glucose, Whole Blood 296 mg/dL (60-115)
[2021-11-27 20:41] LABS: Glucose, Whole Blood 237 mg/dL (60-115)
[2021-11-28] VITALS (10 sets, daily range): BP systolic 125–159; BP diastolic 61–77; PULSE 73–100; RESP 17–20; TEMP 36.1–36.7; O2SAT 95–98
[2021-11-28 07:38] LABS: Glucose, Whole Blood 176 mg/dL (60-115)
[2021-11-28] MEDS: Albuterol Sulfate 90 MCG 8 GM INHALER 4 PUFF INHALE ×7 (07:56→19:47)
[2021-11-28] MEDS: Fluticasone/Vilanterol 200/25 BLST.W.DEV 1 PUFF INHALE (07:56)
[2021-11-28] MEDS: Insulin Lispro 100 UNIT/ML 3 ML VIAL SUBCUT ×3 (08:15→20:20)
[2021-11-28] MEDS: Gabapentin 600 MG TABLET 1200 MG PO ×2 (08:16→20:20)
[2021-11-28] MEDS: Aspirin 81 MG TAB.CHEW PO (08:16)
[2021-11-28] MEDS: Atorvastatin Calcium 40 MG TABLET PO (08:16)
[2021-11-28] MEDS: 0.9 % Sodium Chloride Flush 3 ML SYRINGE IVFLUSH ×3 (08:16→20:20)
[2021-11-28] MEDS: carvediloL 12.5 MG TABLET PO ×2 (08:16→20:20)
[2021-11-28] MEDS: Famotidine 20 MG TABLET PO ×2 (08:16→20:20)
[2021-11-28] MEDS: Rivaroxaban 20 MG TABLET PO (08:16)
[2021-11-28] MEDS: Nystatin Powder 15 GM BOTTLE 1 APPL TOPICAL ×2 (09:47→20:20)
[2021-11-28 11:19] LABS: Glucose, Whole Blood 216 mg/dL (60-115)
--- NOTE | 2021-11-28 13:38 | P.PNIM_ITS ---
Subjective Subjective Date of Service: 11/28/21 Interval History: Placed back on O2 as she felt a little dyspneic off it. Otherwise no complaints- no fever, cough, or GI symptoms. Review of Systems Review of Systems: Yes all other systems are reviewed and are negative Physical Exam Vital Signs: Vital Signs: Last Vital Signs Temp 98.0 F 11/28/21 11:59 Pulse 93 11/28/21 11:59 Resp 17 11/28/21 11:59 BP 135/68 11/28/21 11:59 Pulse Ox 98 11/28/21 11:59 Oxygen Flow Rate 3 11/18/21 11:53 BMI result Body Mass Index 25.9 Gen: in no acute distress but frail appearing HEENT: sclera anicteric, moist mucus membranes Neck: supple Lungs: clear to auscultation bilaterally Heart: regular rate and rhythm, no murmurs Abd: soft, non-tender, non-distended Ext: no edema Skin: warm/well-perfused, candidiasis of groin Neuro: alert and oriented x3, no focal findings Psych: appropriate affect Objective Data Active Medications Acetaminophen (Acetaminophen 325 Mg Tablet) 650 mg PO Q6H PRN PRN Reason: Pain, Mild (Pain Scale 1-3) Last Admin: 11/21/21 12:49 Dose: 650 mg Documented by: YAN Albuterol Sulfate (Albuterol Sulfate 90 Mcg 8 Gm Inhaler) 4 puff INHALE RQ4H WHILE AWAKE [facility] Last Admin: 11/28/21 11:53 Dose: 4 puff Documented by: JESSA Albuterol Sulfate (Albuterol Sulfate 90 Mcg 8 Gm Inhaler) 4 puff INHALE Q2H PRN PRN Reason: shortness of breath or wheeze Last Admin: 11/28/21 07:56 Dose: 4 puff Documented by: JESSA Aspirin (Aspirin 81 Mg Tab.Chew) 81 mg PO DAILY [facility] Last Admin: 11/28/21 08:16 Dose: 81 mg Documented by: YOHAN Atorvastatin Calcium (Atorvastatin Calcium 40 Mg Tablet) 40 mg PO DAILY [facility] Last Admin: 11/28/21 08:16 Dose: 40 mg Documented by: YOHAN Carvedilol (Carvedilol 12.5 Mg Tablet) 12.5 mg PO BID [facility]; Protocol Last Admin: 11/28/21 08:16 Dose: 12.5 mg Documented by: YOHAN Dextrose (Dextrose 50 % 25 Gm/50 Ml Vial) 25 gm IVPUSH Q15M PRN; Protocol PRN Reason: per Hypoglycemia Standing Ord. Famotidine (Famotidine 20 Mg Tablet) 20 mg PO BID [facility] Last Admin: 11/28/21 08:16 Dose: 20 mg Documented by: YOHAN Fluticasone/Vilanterol (Fluticasone/Vilanterol 200/25 Blst.W.Dev) 1 puff INHALE RDAILY [facility] Last Admin: 11/28/21 07:56 Dose: 1 puff Documented by: JESSA Gabapentin (Gabapentin 600 Mg Tablet) 1,200 mg PO BID [facility] Last Admin: 11/28/21 08:16 Dose: 1,200 mg Documented by: YOHAN Glucose (Glucose Gel 15 Gm Gel..Gram.) 15 gm PO Q15M PRN; Protocol PRN Reason: per Hypoglycemia Standing Ord. Insulin Human Lispro (Insulin Lispro 100 Unit/Ml 3 Ml Vial) 0 unit SUBCUT QIDACHS [facility]; Protocol Last Admin: 11/28/21 11:44 Dose: 4 unit Documented by: YOHAN Nystatin (Nystatin Powder 15 Gm Bottle) 1 appl TOPICAL BID [facility]; Protocol Last Admin: 11/28/21 09:47 Dose: 1 appl Documented by: YOHAN Ondansetron HCl (Ondansetron Hcl 4 Mg/2 Ml Vial) 4 mg IVPUSH Q8H PRN PRN Reason: Nausea and Vomiting Last Admin: 11/21/21 12:49 Dose: 4 mg Documented by: YAN Rivaroxaban (Rivaroxaban 20 Mg Tablet) 20 mg PO DAILY [facility] Last Admin: 11/28/21 08:16 Dose: 20 mg Documented by: YOHAN Sodium Chloride (0.9 % Sodium Chloride Flush 3 Ml Syringe) [facility] Last Admin: 11/28/21 08:16 Dose: 3 ml Documented by: YOHAN Labs CBC & Chem 7: 11/24/21 06:00 11/24/21 06:00 Labs: Laboratory Results - last 24 hr 11/27/21 11/27/21 11/28/21 15:47 20:35 07:31 POC Glucose 296 H 237 H 176 H 01/22/22 11:10 POC Glucose 216 H Assessment and Plan (1) Generalized weakness: Status: Acute (2) Hydronephrosis: Status: Acute (3) Non-ST elevated myocardial infarction: Status: Acute (4) UTI (urinary tract infection): Status: Acute (5) Essential hypertension: Status: Acute Assessment and Plan: hospital d#11 81yo F with AF on rivaroxaban, hx VT, HFpEF, HTN, HLD, CAD, PFO, COPD, sarcoidosis who was recently admitted to this hospital 11/01/21-11/14/21 with w eakness due to UTI and PNA and discharged home presenting after not eating or drinking found to be hypoxic, tachycardic, and tachypneic with Covid-19 infection also with NSTEMI, UTI, hydroureteronephrosis with bladder outlet obstruction, and fecal impaction with stercoral colitis # acute hypoxic respiratory failure due to Covid-19 infection and COPD exacerbation - completed 5 of remdesivir and 10 days of dexamethasone - wean O2 as tolerated - continue albuterol HFA, ICS/LABA controller inhaler # viral sepsis - symptoms of sepsis (tachycardia and tachypnea) have resolved # chronic normocytic anemia - noted to have drop in hematocrit likely due to acute infection; no overt bleeding noted; patient on aspirin and rivaroxaban; repeat hematocrit is stable # NSTEMI - likely type 2 demand related from tachycardia/Covid-19 - continue ASA, beta-phoenix, and statin; seen by Cardiology they agree with current treatment # UTI - noted to have cloudy urine with pus; blood cultures no growth; urine culture grew greater than 100,000 Marian albicans;? stopped IV ceftriaxone after 3 days # cutaneous candidiasis - nystatin # hydroureteronephrosis # bladder outlet obstruction - seen by Urology; renal ultrasound obtained that showed clearance of hydronephrosis and showed mild perinephric fluid collection left kidney; Mccarthy out and voiding on own - question cause of bladder obstruction, follow clinical course and re-consult Urology if noted to have recurrent issues with voiding # stercoral colitis - resolved # CAD - continue statin, rivaroxaban, and carvedilol, # HTN - blood pressure is stable on carvedilol, few high and low blood pressure readings, lisinopril held, continue to follow BP # diabetes mellitus type 2 ?- on metformin, blood sugars elevated likely due to steroids and now improving now that she has completed steroids, continue insulin sliding scale # pAF - continue carvedilol for rate control, anticoagulate with rivaroxaban # stage II pressure ulcer of sacral area - apply Triad, frequent position change # generalized weakness - was living alone in an elderly housing apartment and ambulating with no assistive device, now with generalized weakness likely due to viral sepsis, NSTEMI, and hypoxia -? STR recommended # VTE ppx - rivaroxaban # code - full # dispo - STR- cyanide case hardener arranging for safe discharge Quality Stroke Does the patient have a stroke diagnosis?: No VTE Prior VTE?: No VTE Risk Level:: Medical - moderate - high VTE Device Contraindication: N/A - Device Ordered VTE Drug Contraindication: N/A - Med Ordered
[2021-11-28 16:09] LABS: Glucose, Whole Blood 136 mg/dL (60-115)
[2021-11-28 19:57] LABS: Glucose, Whole Blood 189 mg/dL (60-115)
[2021-11-29] VITALS (11 sets, daily range): BP systolic 121–155; BP diastolic 58–80; PULSE 77–101; RESP 18–20; TEMP 36.7–37.1; O2SAT 91–98
[2021-11-29 07:36] LABS: Glucose, Whole Blood 116 mg/dL (60-115)
[2021-11-29] MEDS: Albuterol Sulfate 90 MCG 8 GM INHALER 4 PUFF INHALE ×7 (07:45→19:56)
[2021-11-29] MEDS: Fluticasone/Vilanterol 200/25 BLST.W.DEV 1 PUFF INHALE (07:45)
[2021-11-29] MEDS: Gabapentin 600 MG TABLET 1200 MG PO ×2 (09:19→20:39)
[2021-11-29] MEDS: Aspirin 81 MG TAB.CHEW PO (09:19)
[2021-11-29] MEDS: 0.9 % Sodium Chloride Flush 3 ML SYRINGE IVFLUSH ×3 (09:19→20:39)
[2021-11-29] MEDS: Famotidine 20 MG TABLET PO ×2 (09:19→20:39)
[2021-11-29] MEDS: carvediloL 12.5 MG TABLET PO ×2 (09:19→20:39)
[2021-11-29] MEDS: Atorvastatin Calcium 40 MG TABLET PO (09:19)
[2021-11-29] MEDS: Rivaroxaban 20 MG TABLET PO (09:19)
[2021-11-29] MEDS: Nystatin Powder 15 GM BOTTLE 1 APPL TOPICAL ×2 (09:20→20:39)
--- NOTE | 2021-11-29 10:27 | HO.PM.IMPN ---
Subjective Subjective Date of Service: 11/29/21 Interval History: Minimal dyspnea; remains on 2L O2 for comfort. Very weak. No fever. Review of Systems Review of Systems: Yes all other systems are reviewed and are negative Physical Exam Vital Signs: Vital Signs: Last Vital Signs Temp 98.1 F 11/29/21 07:45 Pulse 101 H 11/29/21 07:48 Resp 18 11/29/21 07:48 BP 130/68 11/29/21 07:45 Pulse Ox 97 11/29/21 07:45 Oxygen Flow Rate 3 11/18/21 11:53 BMI result Body Mass Index 25.9 en: in no acute distress but frail-appearing HEENT: sclera anicteric, moist mucus membranes Neck: supple Lungs: clear to auscultation bilaterally Heart: regular rate and rhythm, no murmurs Abd: soft, non-tender, non-distended Ext: no edema Skin: warm/well-perfused, candidiasis of groin Neuro: alert and oriented x3, no focal findings Psych: appropriate affect Objective Data Active Medications Acetaminophen (Acetaminophen 325 Mg Tablet) 650 mg PO Q6H PRN PRN Reason: Pain, Mild (Pain Scale 1-3) Last Admin: 11/21/21 12:49 Dose: 650 mg Documented by: YAN Albuterol Sulfate (Albuterol Sulfate 90 Mcg 8 Gm Inhaler) 4 puff INHALE RQ4H WHILE AWAKE [facility] Last Admin: 11/29/21 07:47 Dose: 4 puff Documented by: IAN Albuterol Sulfate (Albuterol Sulfate 90 Mcg 8 Gm Inhaler) 4 puff INHALE Q2H PRN PRN Reason: shortness of breath or wheeze Last Admin: 11/29/21 07:45 Dose: 4 puff Documented by: IAN Aspirin (Aspirin 81 Mg Tab.Chew) 81 mg PO DAILY [facility] Last Admin: 11/29/21 09:19 Dose: 81 mg Documented by: YOHAN Atorvastatin Calcium (Atorvastatin Calcium 40 Mg Tablet) 40 mg PO DAILY [facility] Last Admin: 11/29/21 09:19 Dose: 40 mg Documented by: YOHAN Carvedilol (Carvedilol 12.5 Mg Tablet) 12.5 mg PO BID [facility]; Protocol Last Admin: 11/29/21 09:19 Dose: 12.5 mg Documented by: YOHAN Dextrose (Dextrose 50 % 25 Gm/50 Ml Vial) 25 gm IVPUSH Q15M PRN; Protocol PRN Reason: per Hypoglycemia Standing Ord. Famotidine (Famotidine 20 Mg Tablet) 20 mg PO BID [facility] Last Admin: 11/29/21 09:19 Dose: 20 mg Documented by: YOHAN Fluticasone/Vilanterol (Fluticasone/Vilanterol 200/25 Blst.W.Dev) 1 puff INHALE RDAILY [facility] Last Admin: 11/29/21 07:45 Dose: 1 puff Documented by: IAN Gabapentin (Gabapentin 600 Mg Tablet) 1,200 mg PO BID [facility] Last Admin: 11/29/21 09:19 Dose: 1,200 mg Documented by: YOHAN Glucose (Glucose Gel 15 Gm Gel..Gram.) 15 gm PO Q15M PRN; Protocol PRN Reason: per Hypoglycemia Standing Ord. Insulin Human Lispro (Insulin Lispro 100 Unit/Ml 3 Ml Vial) [facility]; Protocol Last Admin: 11/29/21 07:38 Dose: Not Given Documented by: YOHAN Non-Admin Reason: No Insulin Coverage Nystatin (Nystatin Powder 15 Gm Bottle) 1 appl TOPICAL BID [facility]; Protocol Last Admin: 11/29/21 09:20 Dose: 1 appl Documented by: YOHAN Ondansetron HCl (Ondansetron Hcl 4 Mg/2 Ml Vial) 4 mg IVPUSH Q8H PRN PRN Reason: Nausea and Vomiting Last Admin: 11/21/21 12:49 Dose: 4 mg Documented by: YAN Rivaroxaban (Rivaroxaban 20 Mg Tablet) 20 mg PO DAILY [facility] Last Admin: 11/29/21 09:19 Dose: 20 mg Documented by: YOHAN Sodium Chloride (0.9 % Sodium Chloride Flush 3 Ml Syringe) [facility] Last Admin: 11/29/21 09:19 Dose: 3 ml Documented by: YOHAN Labs CBC & Chem 7: 11/24/21 06:00 11/24/21 06:00 Labs: Laboratory Results - last 24 hr 11/28/21 11/28/21 11/28/21 11:10 16:06 19:54 POC Glucose 216 H 136 H 189 H 11/29/21 07:26 POC Glucose 116 H Assessment and Plan (1) Generalized weakness: Status: Acute (2) Hydronephrosis: Status: Acute (3) Non-ST elevated myocardial infarction: Status: Acute (4) UTI (urinary tract infection): Status: Acute (5) Essential hypertension: Status: Acute Assessment and Plan: hospital d#12 81yo F with AF on rivaroxaban, hx VT, HFpEF, HTN, HLD, CAD, PFO, COPD, sarcoidosis who was recently admitted to this hospital 11/01/21-11/14/21 with weakness due to UTI and PNA and discharged home presenting after not eating or drinking found to be hypoxic, tachycardic, and tachypneic with Covid-19 infection also with NSTEMI, UTI, hydroureteronephrosis with bladder outlet obstruction, and fecal impaction with stercoral colitis # acute hypoxic respiratory failure due to Covid-19 infection and COPD exacerbation - completed 5 of remdesivir and 10 days of dexamethasone - wean O2 as tolerated - continue albuterol HFA, ICS/LABA controller inhaler # viral sepsis - symptoms of sepsis (tachycardia and tachypnea) have resolved # chronic normocytic anemia - noted to have drop in hematocrit likely due to acute infection; no overt bleeding noted; patient on aspirin and rivaroxaban; repeat hematocrit is stable # NSTEMI - likely type 2 demand related from tachycardia/Covid-19 - continue ASA, beta-phoenix, and statin; seen by Cardiology they agree with current treatment # UTI - noted to have cloudy urine with pus; blood cultures no growth; urine culture grew greater than 100,000 Marian albicans;? stopped IV ceftriaxone after 3 days # cutaneous candidiasis - nystatin # hydroureteronephrosis # bladder outlet obstruction - seen by Urology; renal ultrasound obtained that showed clearance of hydronephrosis and showed mild perinephric fluid collection left kidney; Mccarthy out and voiding on own - question cause of bladder obstruction, follow clinical course and re-consult Urology if noted to have recurrent issues with voiding # stercoral colitis - resolved # CAD - continue statin, rivaroxaban, and carvedilol, # HTN - blood pressure is stable on carvedilol, few high and low blood pressure readings, lisinopril held, continue to follow BP # diabetes mellitus type 2 ?- on metformin, blood sugars elevated likely due to steroids and now improving now that she has completed steroids, continue insulin sliding scale # pAF - continue carvedilol for rate control, anticoagulate with rivaroxaban # stage II pressure ulcer of sacral area - apply Triad, frequent position change # generalized weakness - was living alone in an elderly housing apartment and ambulating with no assistive device, now with generalized weakness likely due to viral sepsis, NSTEMI, and hypoxia -?STR recommended # VTE ppx - rivaroxaban # code - full # dispo - STR- CM following but placement options limited by Covid-19 status Quality Stroke Does the patient have a stroke diagnosis?: No VTE Prior VTE?: No VTE Risk Level:: Medical - moderate - high VTE Device Contraindication: N/A - Device Ordered VTE Drug Contraindication: N/A - Med Ordered
[2021-11-29 11:15] LABS: Glucose, Whole Blood 167 mg/dL (60-115)
[2021-11-29] MEDS: Insulin Lispro 100 UNIT/ML 3 ML VIAL SUBCUT ×2 (11:44→20:39)
[2021-11-29 16:15] LABS: Glucose, Whole Blood 117 mg/dL (60-115)
[2021-11-29 19:44] LABS: Glucose, Whole Blood 193 mg/dL (60-115)
[2021-11-30] VITALS (7 sets, daily range): BP systolic 112–174; BP diastolic 54–81; PULSE 73–108; RESP 16–20; TEMP 36.3–36.7; O2SAT 89–97
[2021-11-30 07:38] LABS: Glucose, Whole Blood 84 mg/dL (60-115)
[2021-11-30] MEDS: Albuterol Sulfate 90 MCG 8 GM INHALER 4 PUFF INHALE ×4 (07:52→11:24)
[2021-11-30] MEDS: Fluticasone/Vilanterol 200/25 BLST.W.DEV 1 PUFF INHALE (07:52)
[2021-11-30] MEDS: 0.9 % Sodium Chloride Flush 3 ML SYRINGE IVFLUSH ×3 (09:26→20:16)
[2021-11-30] MEDS: Rivaroxaban 20 MG TABLET PO (09:27)
[2021-11-30] MEDS: Aspirin 81 MG TAB.CHEW PO (09:27)
[2021-11-30] MEDS: Atorvastatin Calcium 40 MG TABLET PO (09:28)
[2021-11-30] MEDS: Famotidine 20 MG TABLET PO ×2 (09:29→20:15)
[2021-11-30] MEDS: carvediloL 12.5 MG TABLET PO ×2 (09:29→20:15)
[2021-11-30] MEDS: Gabapentin 600 MG TABLET 1200 MG PO ×2 (09:29→20:10)
[2021-11-30] MEDS: Insulin Lispro 100 UNIT/ML 3 ML VIAL SUBCUT ×2 (11:33→20:15)
[2021-11-30 11:34] LABS: Glucose, Whole Blood 167 mg/dL (60-115)
[2021-11-30] MEDS: Nystatin Powder 15 GM BOTTLE 1 APPL TOPICAL ×2 (11:35→21:28)
--- NOTE | 2021-11-30 12:15 | HO.PM.IMPN ---
Subjective Subjective Date of Service: 11/30/21 Interval History: No acute complaints, no events overnight. Review of Systems Review of Systems: Yes all other systems are reviewed and are negative Physical Exam Vital Signs: Vital Signs: Last Vital Signs Temp 98.1 F 11/30/21 11:58 Pulse 89 11/30/21 11:58 Resp 20 11/30/21 11:58 BP 112/57 L 11/30/21 11:58 Pulse Ox 94 11/30/21 11:58 Oxygen Flow Rate 3 11/18/21 11:53 BMI result Body Mass Index 25.9 Const: Other: Gen: in no acute distress but frail-appearing Neck: supple,no jvd Lungs: clear to auscultation bilaterally Heart: regular rate and rhythm, no murmurs Abd: soft, non-tender, non-distended Ext: no edema Skin: warm/well-perfused, candidiasis of groin Neuro: no focal findings Psych: appropriate affect ? Objective Data Active Medications Acetaminophen (Acetaminophen 325 Mg Tablet) 650 mg PO Q6H PRN PRN Reason: Pain, Mild (Pain Scale 1-3) Last Admin: 11/21/21 12:49 Dose: 650 mg Documented by: YAN Albuterol Sulfate (Albuterol Sulfate 90 Mcg 8 Gm Inhaler) 4 puff INHALE RQ4H WHILE AWAKE [facility] Last Admin: 11/30/21 11:24 Dose: 4 puff Documented by: IAN Albuterol Sulfate (Albuterol Sulfate 90 Mcg 8 Gm Inhaler) 4 puff INHALE Q2H PRN PRN Reason: shortness of breath or wheeze Last Admin: 11/30/21 11:23 Dose: 4 puff Documented by: IAN Aspirin (Aspirin 81 Mg Tab.Chew) 81 mg PO DAILY [facility] Last Admin: 11/30/21 09:27 Dose: 81 mg Documented by: ASHLEE Atorvastatin Calcium (Atorvastatin Calcium 40 Mg Tablet) 40 mg PO DAILY [facility] Last Admin: 11/30/21 09:28 Dose: 40 mg Documented by: ASHLEE Carvedilol (Carvedilol 12.5 Mg Tablet) 12.5 mg PO BID [facility]; Protocol Last Admin: 11/30/21 09:29 Dose: 12.5 mg Documented by: ASHLEE Dextrose (Dextrose 50 % 25 Gm/50 Ml Vial) 25 gm IVPUSH Q15M PRN; Protocol PRN Reason: per Hypoglycemia Standing Ord. Famotidine (Famotidine 20 Mg Tablet) 20 mg PO BID [facility] Last Admin: 11/30/21 09:29 Dose: 20 mg Documented by: ASHLEE Fluticasone/Vilanterol (Fluticasone/Vilanterol 200/25 Blst.W.Dev) 1 puff INHALE RDAILY [facility] Last Admin: 11/30/21 07:52 Dose: 1 puff Documented by: IAN Gabapentin (Gabapentin 600 Mg Tablet) 1,200 mg PO BID [facility] Last Admin: 11/30/21 09:29 Dose: 1,200 mg Documented by: ASHLEE Glucose (Glucose Gel 15 Gm Gel..Gram.) 15 gm PO Q15M PRN; Protocol PRN Reason: per Hypoglycemia Standing Ord. Insulin Human Lispro (Insulin Lispro 100 Unit/Ml 3 Ml Vial) 0 unit SUBCUT QIDACHS [facility]; Protocol Last Admin: 11/30/21 11:33 Dose: 2 unit Documented by: ASHLEE Nystatin (Nystatin Powder 15 Gm Bottle) 1 appl TOPICAL BID [facility]; Protocol Last Admin: 11/30/21 11:35 Dose: 1 appl Documented by: ASHLEE Ondansetron HCl (Ondansetron Hcl 4 Mg/2 Ml Vial) 4 mg IVPUSH Q8H PRN PRN Reason: Nausea and Vomiting Last Admin: 11/21/21 12:49 Dose: 4 mg Documented by: YAN Rivaroxaban (Rivaroxaban 20 Mg Tablet) 20 mg PO DAILY [facility] Last Admin: 11/30/21 09:27 Dose: 20 mg Documented by: ASHLEE Sodium Chloride (0.9 % Sodium Chloride Flush 3 Ml Syringe) 3 ml IVFLUSH QSHIFT [facility] Last Admin: 11/30/21 09:26 Dose: 3 ml Documented by: ASHLEE Labs CBC & Chem 7: 11/24/21 06:00 11/24/21 06:00 Labs: Laboratory Results - last 24 hr 11/29/21 11/29/21 11/30/21 16:10 19:41 07:31 POC Glucose 117 H 193 H 84 11/30/21 11:29 POC Glucose 167 H Assessment and Plan (1) Generalized weakness: Status: Acute (2) Hydronephrosis: Status: Acute (3) Non-ST elevated myocardial infarction: Status: Acute (4) UTI (urinary tract infection): Status: Acute (5) Essential hypertension: Status: Acute Assessment and Plan: 81yo F with AF on rivaroxaban, hx VT, HFpEF, HTN, HLD, CAD, PFO, COPD, sarcoidosis who was recently admitted to this hospital 11/01/21-11/14/21 with weakness due to UTI and PNA and discharged home presenting after not eating or drinking found to be hypoxic, tachycardic, and tachypneic with Covid-19 infection also with NSTEMI, UTI, hydroureteronephrosis with bladder outlet obstruction, and fecal impaction with stercoral colitis # acute hypoxic respiratory failure due to Covid-19 infection and COPD exacerbation - completed 5 of remdesivir and 10 days of dexamethasone - will DC oxygen, follow finger oximetry - continue albuterol HFA, ICS/LABA controller inhaler # viral sepsis - symptoms of sepsis (tachycardia and tachypnea) have resolved # chronic normocytic anemia - noted to have drop in hematocrit likely due to acute infection; no overt bleeding noted; patient on aspirin and rivaroxaban; repeat hematocrit is stable # NSTEMI - likely type 2 demand related from tachycardia/Covid-19 - continue ASA, beta-phoenix, and statin; seen by Cardiology they agree with current treatment # UTI - noted to have cloudy urine with pus; blood cultures no growth; urine culture grew greater than 100,000 Marian albicans;? stopped IV ceftriaxone after 3 days # cutaneous candidiasis - nystatin # hydroureteronephrosis # bladder outlet obstruction - seen by Urology; renal ultrasound obtained that showed clearance of hydronephrosis and showed mild perinephric fluid collection left kidney; Mccarthy out and voiding on own - cause of bladder obstruction unknown, follow clinical course and re-consult Urology if noted to have recurrent issues with voiding # stercoral colitis - resolved # CAD - continue statin, rivaroxaban, and carvedilol, # HTN - blood pressure with few high and low blood pressure readings, lisinopril held, continue Coreg and follow BP # diabetes mellitus type 2 ?- on metformin, blood sugars elevated likely due to steroids and now improving that she has completed steroids, continue insulin sliding scale # pAF - continue carvedilol for rate control, anticoagulate with rivaroxaban # stage II pressure ulcer of sacral area - apply Triad, frequent position change # generalized weakness - was living alone in an elderly housing apartment and ambulating with no assistive device, now with generalized weakness likely due to viral sepsis, NSTEMI, and hypoxia -?STR recommended # VTE ppx - rivaroxaban # code - full # dispo - STR- CM following but placement options limited by Covid-19 status Quality Stroke Does the patient have a stroke diagnosis?: No VTE Prior VTE?: No VTE Risk Level:: Medical - moderate - high VTE Device Contraindication: N/A - Device Ordered VTE Drug Contraindication: N/A - Med Ordered
--- NOTE | 2021-11-30 15:28 | MHC.CM.PN ---
Female 81 Covid+ Not Vaccinated Is ready to discharge. Placement issues r/t not being vaccinated. Referral sources updated. No bed offers today. CM will continue to search for a bed.
--- NOTE | 2021-11-30 15:50 | MHC.CLN ---
NOTED NEW STAGE 2 R BUTT RECOMMEND ADDING SUPPLEMENT TO INCREASE [facility] FULL ASSESSMENT TO FOLLOW
[2021-11-30 16:11] LABS: Glucose, Whole Blood 138 mg/dL (60-115)
[2021-11-30 20:15] LABS: Glucose, Whole Blood 210 mg/dL (60-115)
[2021-12-01] VITALS (8 sets, daily range): BP systolic 102–140; BP diastolic 56–81; PULSE 79–108; RESP 16–20; TEMP 36.3–36.7; O2SAT 89–98; BMI 25.9
[2021-12-01] MEDS: Gabapentin 600 MG TABLET 1200 MG PO (08:09)
[2021-12-01] MEDS: Atorvastatin Calcium 40 MG TABLET PO (08:10)
[2021-12-01] MEDS: 0.9 % Sodium Chloride Flush 3 ML SYRINGE IVFLUSH (08:10)
[2021-12-01] MEDS: Rivaroxaban 20 MG TABLET PO (08:10)
[2021-12-01] MEDS: Aspirin 81 MG TAB.CHEW PO (08:10)
[2021-12-01] MEDS: Famotidine 20 MG TABLET PO (08:10)
[2021-12-01] MEDS: carvediloL 12.5 MG TABLET PO (08:10)
[2021-12-01 08:11] LABS: Glucose, Whole Blood 97 mg/dL (60-115)
[2021-12-01] MEDS: Nystatin Powder 15 GM BOTTLE 1 APPL TOPICAL (08:11)
[2021-12-01] MEDS: Fluticasone/Vilanterol 200/25 BLST.W.DEV 1 PUFF INHALE (08:19)
[2021-12-01] MEDS: Albuterol Sulfate 90 MCG 8 GM INHALER 4 PUFF INHALE ×2 (08:19→12:07)
[2021-12-01 11:39] LABS: Glucose, Whole Blood 150 mg/dL (60-115)
--- NOTE | 2021-12-01 12:19 | PM.DS ---
DS: Providers Provider Date of Service: 12/01/21 Date of admission: 11/18/21 17:09 Primary care physician: Hunter Prince MD Consults: 11/18/21 16:47 Consult to Cardiology Routine Consulting Provider: Frank Bazan Reason for consultation: elevated Tn-I Consult to Infectious Diseases Routine Consulting Provider: Anyi Solano Reason for consultation: Covid, hypoxia, unvaccinated 11/18/21 17:18 Consult to Urology Routine Consulting Provider: Manoj Leonard Reason for consultation: bladder outlet obstruction + hydroureteronephrosis DS: Diagnosis Discharge Diagnosis (1) Generalized weakness: Status: Acute (2) Hydronephrosis: Status: Acute (3) Non-ST elevated myocardial infarction: Status: Acute (4) UTI (urinary tract infection): Status: Acute (5) Essential hypertension: Status: Acute DS: Summary Hospital Course Hospital Course: Chief Complaint: abdominal pain 81yo F with AF on rivaroxaban, hx VT, HFpEF, HTN, HLD, CAD, PFO, COPD, sarcoidosis who was recently admitted to this hospital 11/01/21-11/14/21 with weakness due to UTI and PNA.? She was recommended to go to SNF for STR but due to [id number] status, placement could not be secured, so she went to live with her son.? She says she has had abdominal pain for the past several days.? No fever.? No chest pain.? A visiting nurse came to her home today and found that she had not been eating or drinking since Tuesday. ? Her son called EMS.? They found her tachycardic and tachypneic and hypoxic with Sa 88% on room air, and brought her in on 3L O2 via NC.? CT of the abdomen showed stercoral colitis with severe fecal impaction and urinary retention with hydroureteronephrosis and bladder outlet obstruction.? Disimpaction was done and Mccarthy ordered. ? UA with pyuria and bacteruria and ceftriaxone was ordered.? High-sensitivity troponin-I elevated to 440; repeat was 375.? EKG with sinus tachycardia, RAD, lateral ST depression.? Covid-19 SOTO was positive.? No sick contacts. She is not a good historian and the above history was obtained from the ED physician and from her sons Garcia and Randolph via telephone.? She thinks we are making this all up . Hospital course 81yo F with AF on rivaroxaban, hx VT, HFpEF, HTN, HLD, CAD, PFO, COPD, sarcoidosis who was recently admitted to this hospital 11/01/21-11/14/21 with weakness due to UTI and PNA and discharged home presenting after not eating or drinking found to be hypoxic, tachycardic, and tachypneic with Covid-19 infection also with NSTEMI, UTI, hydroureteronephrosis with bladder outlet obstruction, and fecal impaction with stercoral colitis # acute hypoxic respiratory failure due to Covid-19 infection and COPD exacerbation patient finished 5 day course of remdesivir and 10 days of dexamethasone will continue home inhalers, wean oxygen as tolerated # viral sepsis due to COVID-19 with tachycardia and tachypnea have resolved # chronic normocytic anemia noted to have drop in hematocrit likely due to acute infection; no overt bleeding noted; patient on aspirin and rivaroxaban; repeat? hematocrit is stable # NSTEMI noted to have elevated troponin, with no chest pain, type 2 demand related from tachycardia/Covid-19, continue aspirin beta-[place]oenix and statin Seen by Cardiology they agree with current treatment # cutaneous candidiasis continue antifungal cream # hydroureteronephrosis due to bladder outlet obstruction, seen by Urology; renal ultrasound obtained that showed clearance of hydronephrosis , Mccarthy catheter placed again for skin integrity due to pressure injury coccyx # stercoral colitis resolved was likely due to constipation # HTN continue Coreg, lisinopril held due to low blood pressure readings follow BP and may resume lisinopril a blood pressure allows # diabetes mellitus type 2 resume metformin ? # in regard to paroxysmal atrial fibrillation continue carvedilol for rate control, and continue rivaroxaban # stage II pressure ulcer of sacral area apply Triad, frequent position change # generalized weakness was living alone in an elderly housing apartment and ambulating with no assistive device, now with generalized weakness likely due to viral sepsis, NSTEMI, and hypoxia Therefore being discharged to rehab. Time Spent with Patient Time attestation: Total time spent providing and/or coordinating discharge services: Discharge coordination time: Greater than 30 minutes Quality: Stroke Does the patient have a stroke diagnosis?: No Physical Exam Vital Signs: Vital Signs: Last Vital Signs Temp 97.5 F 12/01/21 11:18 Pulse 82 01/25/22 12:09 Resp 18 12/01/21 12:09 BP 102/56 L 12/01/21 11:35 Pulse Ox 98 12/01/21 11:35 Oxygen Flow Rate 3 11/18/21 11:53 BMI result Body Mass Index 25.9 Const: Other: Gen: in no acute distress but frail-appearing Neck: supple,no jvd Lungs: clear to auscultation bilaterally Heart: regular rate and rhythm, no murmurs Abd: soft, non-tender, non-distended Ext: no edema Skin: warm/well-perfused, candidiasis of groin/stage II pressure injury coccyx Neuro: no focal findings Psych: appropriate affect ? DS: Data Data Completed and Pending Labs on day of discharge: Laboratory Results - last 24 hr 11/30/21 11/30/21 12/01/21 16:05 20:07 07:41 POC Glucose 138 H 210 H 97 12/01/21 11:15 POC Glucose 150 H Discharge Plan Discharge Patient Disposition: Xfer SNF Discharge Diagnosis: Acute hypoxic respiratory failure due to COVID-19 Acute COPD exacerbation Viral sepsis Non ST-elevation MS [place] ureteral nephrosis Stercoral colitis Stage II pressure ulcer of sacrum Generalized weakness Referrals: Po,Hunter Santos MD [Primary Care Provider] - 1 Week Discharge Medications: New atorvastatin 40 mg Tablet 40 mg PO DAILY Qty: 30 RF: 0 aspirin 81 mg Tablet,Chewable 81 mg PO DAILY Qty: 30 RF: 0 Continued gabapentin 600 mg tablet 1,200 mg PO BID Qty: 360 RF: 3 ketoconazole 2 % cream 1 appl topical BID Qty: 60 RF: 0 (DME) Sanitary WIPES See Rx Instructions .Route .MEDSUPPLY Qty: 100 RF: 0 (DME) OneTouch Verio test strips Strip See Rx Instructions .ROUTE .MEDSUPPLY Qty: 10 RF: 0 carvedilol 12.5 mg tablet 12.5 mg PO BID 90 Days Qty: 180 RF: 2 budesonide-formoterol [Symbicort] 160-4.5 mcg/actuation HFA aerosol inhaler 2 puff inhalation BID Qty: 3 RF: 3 Combivent Respimat 20-100 mcg/actuation mist 1 puff PO QID Qty: 12 RF: 2 metformin 500 mg tablet 500 mg PO BID 90 Days Qty: 180 RF: 3 Xarelto 20 mg tablet 20 mg PO DAILY 90 Days Qty: 90 RF: 3 Discontinued atorvastatin 20 mg tablet 20 mg PO DAILY Qty: 90 RF: 3 lisinopril 5 mg tablet 5 mg PO DAILY Qty: 90 RF: 2 Discharge Orders: Discharge Order (Routine); Ordered 12/01/21 Ordered By: Gregor Dan Diet: diabetic diet and low fat, low cholesterol Activity on Discharge: As tolerated Stand Alone Forms: Patient Portal Discharge page Care Plan Goals: Acute hypoxic respiratory failure due to COVID-19 and COPD exacerbation continue home inhalers and wean oxygen as tolerated, non ST-elevation MS due to demand and kidney disease, hydronephrosis resolved Generalized weakness continue physical therapy Health Concerns: Coronary artery disease/diabetes mellitus/chronic anemia take all medications as prescribed Plan of Treatment: Outpatient follow-up with primary care physician and Cardiology in 1-2 weeks Assessment: Per discharge summary
--- NOTE | 2021-12-01 13:23 | MHC.CM.PN ---
spoke with pts son kenzie notified him of dc today to [facility] dupree at [address]
[2021-12-01 15:59] LABS: Glucose, Whole Blood 138 mg/dL (60-115)
== END 2021-12-01 18:57 | disposition skilled nursing facility (03) | DRG 871 ==
LOC: HO.ED 16:24 → HO.EDOVER 18:08 → HO.IMC 11-20 03:44
PROVIDERS: Admitting Provider Family Medicine; Emergency Provider Emergency Medicine; PCP Internal Medicine; Visit Provider Hospitalist
DX: A41.89 Other specified sepsis (principal); I21.A1 Myocardial infarction type 2; U07.1 COVID-19; J96.01 Acute respiratory failure with hypoxia; N13.6 Pyonephrosis; J44.1 Chronic obstructive pulmonary disease with (acute) exacerbation; J44.0 Chronic obstructive pulmonary disease with (acute) lower respiratory infection; I42.8 Other cardiomyopathies; I50.32 Chronic diastolic (congestive) heart failure; I48.0 Paroxysmal atrial fibrillation; I25.10 Atherosclerotic heart disease of native coronary artery without angina pectoris; E78.5 Hyperlipidemia, unspecified; L89.152 Pressure ulcer of sacral region, stage 2; E11.65 Type 2 diabetes mellitus with hyperglycemia; K56.41 Fecal impaction; E86.0 Dehydration; R33.9 Retention of urine, unspecified; K52.9 Noninfective gastroenteritis and colitis, unspecified; B37.2 Candidiasis of skin and nail; Z87.891 Personal history of nicotine dependence; Z79.51 Long term (current) use of inhaled steroids; Z79.01 Long term (current) use of anticoagulants; Z79.82 Long term (current) use of aspirin; Z79.899 Other long term (current) drug therapy; I11.0 Hypertensive heart disease with heart failure
CPT/HCPCS: 36415; 71045; 74176; 76775; 80048; 80053; 81001; 82550; 82728; 82947; 83036; 83605; 83615; 83880; 84145; 84484; 85025; 85027; 85379; 86140; 87040; 87086; 87088; 87635; 93005; 93306; 94640; 96361; 96365; 96367; 96375; 97110; 97162; 97530; 99285; 99291; 99292; C1758; J0248; J0696; J1100; J2405; J2543

== ENCOUNTER → 2021-12-31 13:18 | Outpatient (BNVA) | payer MEDICARE, MEDICAID, SELFPAY | PROVIDERS: PCP Internal Medicine; Referring Provider Internal Medicine; Visit Provider Internal Medicine | DX: I42.8 Other cardiomyopathies (principal); I48.0 Paroxysmal atrial fibrillation; I07.1 Rheumatic tricuspid insufficiency; I27.20 Pulmonary hypertension, unspecified; E78.5 Hyperlipidemia, unspecified; Z79.01 Long term (current) use of anticoagulants; Z79.899 Other long term (current) drug therapy | CPT/HCPCS: 99212 ==